=== PATIENT | female | born 1960 | race Caucasian/White ===

== ENCOUNTER 2017-03-24 15:00 | Outpatient (RCR) | payer MEDICAID, SELFPAY | END 2017-03-24 15:01 | disposition home or self-care (01) | LOC: PT 15:00 | PROVIDERS: Family Provider Nurse Practitioner Family; Visit Provider Nurse Practitioner | DX: M54.2 Cervicalgia (principal); M51.36 Other intervertebral disc degeneration, lumbar region | CPT/HCPCS: 97010; 97014; 97035; 97110; 97140; 97164; G0283 ==

== ENCOUNTER → 2018-04-17 19:19 | Outpatient (CLI) | payer OTHER, SELFPAY ==
[2018-04-18 19:19] LABS: Adenovirus F 40/41, stool Not Detected (NotDetected); Astrovirus Not Detected (NotDetected); Clostridium Difficile A/B, PCR Not Detected (NotDetected); Cryptosporidium Not Detected (NotDetected); Cyclospora Cayetanesis Not Detected (NotDetected); Entamoeba histolytica Not Detected (NotDetected); Enteroaggregative E coli Not Detected (NotDetected); Enteropathogenic E coli Not Detected (NotDetected); Enterotoxigenic E coli Not Detected (NotDetected); Giardia lamblia Not Detected (NotDetected); Plesimonas Shigalloides, PCR Not Detected (NotDetected); Rotavirus A Not Detected (NotDetected); Salmonella, PCR Not Detected (NotDetected); Sapovirus Not Detected (NotDetected); Shiga-like toxin E coli Not Detected (NotDetected); Shigella Enterovasive E coli Not Detected (NotDetected); Vibrio Cholerae Not Detected (NotDetected); Vibrio, PCR Not Detected (NotDetected); Yersinia Entercolitica, PCR Not Detected (NotDetected)
[2018-04-18 19:21] LABS: Campylobacter Not Detected (NotDetected)
[2018-04-18 22:26] LABS: Norovirus Detected (NotDetected)
== END ==
PROVIDERS: Visit Provider Nurse Practitioner Family
DX: R50.9 Fever, unspecified (principal); R19.7 Diarrhea, unspecified
CPT/HCPCS: 87507

== ENCOUNTER → 2018-06-26 09:41 | Outpatient (CLI) | payer OTHER, SELFPAY ==
[2018-06-26 10:35] LABS: Basophils % 0.7 % (0.1-2.0); Eosinophils # 0.1 K/mm3 (0.0-0.4); Eosinophils % 2.1 % (0.1-12.0); Hematocrit 43.4 % (37.0-47.0); Hemoglobin 14.6 g/dL (12.2-16.2); Lymphocytes # 1.4 K/mm3 (0.7-4.5); Lymphocytes % 34.7 % (10-50); Mean Corpuscular HGB Conc 33.5 g/dL (31.8-35.4); Mean Corpuscular Hemoglobin 30.9 pg (27.0-31.2); Mean Corpuscular Volume 92.2 fl (81-99); Mean Platelet Volume 8.9 fl (7.4-10.4); Monocytes # 0.2 K/mm3 (0.1-1.0); Monocytes % 5.2 % (1.7-9.3); Neutrophils # 2.3 K/mm3 (1.8-7.8); Neutrophils % 57.3 % (37.0-80.0); Platelet Count 212 K/mm3 (142-424); Red Blood Count 4.71 M/mm3 (4.20-5.40); Red Cell Distribution Width 13.2 % (11.5-17.5)
[2018-06-26 12:06] LABS: Troponin I < 0.02 ng/ml (0.00-0.06)
[2018-06-26 12:11] LABS: Alanine Aminotransferase 25 U/L (12-78); Albumin Level 4.3 gm/dL (3.4-5.0); Albumin/Globulin Ratio 1.2 (1.1-1.8); Alkaline Phosphatase 121 U/L (46-116); Anion Gap 12.5 mEq/L (5-15); Aspartate Amino Transferase 15 U/L (15-37); Bilirubin,Total 0.6 mg/dL (0.2-1.0); Blood Urea Nitrogen 11 mg/dL (7-18); Carbon Dioxide 28 mmol/L (21.0-32.0); Chloride 106 mmol/L (98-107); Chol/HDL Ratio 3.6 (1-3.5); Cholesterol 167 mg/dL (140-200); Creatinine,Serum 0.67 mg/dL (0.55-1.02); Estimated Glomerular Filt Rate 91 ml/min (>60); GFR (African American) 110 ML/MIN (>60); Globulin 3.7 gm/dl (1.3-3.2); Glucose 81 mg/dL (74-106); HDL Cholesterol 46 mg/dL (29-89); LDL Cholesterol 98 mg/dL (0-130); Potassium 4.5 mmoL/L (3.5-5.1); Sodium 142 mmol/L (136-145); Thyroid Stimulating Hormone 1.73 uIU/ml (0.358-3.740); Triglycerides 114 mg/dL (30-200); VLDL Cholesterol 23 mg/dL (0-40)
== END ==
PROVIDERS: Visit Provider Nurse Practitioner Family
DX: R07.82 Intercostal pain (principal); R06.02 Shortness of breath
CPT/HCPCS: 36415; 80053; 80061; 84443; 84484; 85025

== ENCOUNTER → 2018-08-06 14:39 | Outpatient (CLI) | payer OTHER, SELFPAY ==
[2018-08-06 15:17] LABS: Basophils % 0.5 % (0.1-2.0); Eosinophils % 0.7 % (0.1-12.0); Hematocrit 41.3 % (37.0-47.0); Hemoglobin 14.2 g/dL (12.2-16.2); Lymphocytes # 1.4 K/mm3 (0.7-4.5); Lymphocytes % 24.9 % (10-50); Mean Corpuscular HGB Conc 34.3 g/dL (31.8-35.4); Mean Corpuscular Hemoglobin 30.6 pg (27.0-31.2); Mean Corpuscular Volume 89.4 fl (81-99); Monocytes # 0.3 K/mm3 (0.1-1.0); Monocytes % 5.3 % (1.7-9.3); Neutrophils # 3.7 K/mm3 (1.8-7.8); Neutrophils % 68.6 % (37.0-80.0); Platelet Count 224 K/mm3 (142-424); Red Blood Count 4.63 M/mm3 (4.20-5.40); Red Cell Distribution Width 13.4 % (11.5-17.5); White Blood Count 5.4 K/mm3 (4.8-10.8)
[2018-08-06 17:34] LABS: Alanine Aminotransferase 24 U/L (12-78); Albumin/Globulin Ratio 1.3 (1.1-1.8); Alkaline Phosphatase 119 U/L (46-116); Amylase 34 U/L (25-115); Anion Gap 17.9 mEq/L (5-15); Aspartate Amino Transferase 15 U/L (15-37); Bilirubin,Total 0.7 mg/dL (0.2-1.0); Blood Urea Nitrogen 12 mg/dL (7-18); Carbon Dioxide 24 mmol/L (21.0-32.0); Chloride 106 mmol/L (98-107); Creatinine,Serum 0.69 mg/dL (0.55-1.02); Estimated Glomerular Filt Rate 88 ml/min (>60); GFR (African American) 106 ML/MIN (>60); Globulin 3.2 gm/dl (1.3-3.2); Glucose 96 mg/dL (74-106); Lipase 116 u/L (73-393); Potassium 3.9 mmoL/L (3.5-5.1); Sodium 144 mmol/L (136-145); Total Protein,Serum 7.2 gm/dL (6.4-8.2)
== END ==
PROVIDERS: PCP Nurse Practitioner Family; Visit Provider Nurse Practitioner Family
DX: R10.11 Right upper quadrant pain (principal); R11.2 Nausea with vomiting, unspecified
CPT/HCPCS: 36415; 80053; 82150; 83690; 85025

== ENCOUNTER → 2018-08-31 10:35 | Outpatient (CLI) | payer OTHER, SELFPAY ==
[2018-08-31 11:21] LABS: Blood Urea Nitrogen 10 mg/dL (7-18); Creatinine,Serum 0.67 mg/dL (0.55-1.02); Estimated Glomerular Filt Rate 91 ml/min (>60); GFR (African American) 110 ML/MIN (>60)
--- NOTE | 2018-08-31 12:09 | CT_ITS ---
CT abdomen pelvis w con CLINICAL HISTORY: Right lower quadrant pain, some fever and chills and diarrhea TECHNIQUE: Axial images obtained with sagittal and coronal reformats. All CT scans at the facility use one or more dose reduction, viz: automated exposure control, ma/kV adjustment per patient size (including targeted exams where dose is matched to indication, i.e. head), or iterative reconstruction technique. COMPARISON: CT scan abdomen pelvis without IV or oral contrast 07/14/2016 PROCEDURE: Oral Contrast:Redicat was given IV Contrast: 75 ml IV Optiray 350 was injected intravenously. FINDINGS: Lung bases: Clear, there is no pleural fluid ABDOMEN: Liver: The liver is normal size. There is a stable hypodense lesion inferior aspect of the right lobe consistent with hepatic cyst Gallbladder: Postcholecystectomy Pancreas: No masses or peripancreatic fluid collections. Spleen: The spleen is normal in size, again noted is a hypodense cystic-appearing lesion anterior aspect which has shown slight interval increase in size since the previous exam but consistent with a splenic cyst Adrenals: Unremarkable Kidneys/ureters: No masses. No renal calculi. No hydronephrosis. No perinephric fluid collections. No ureteral dilatation or obvious ureteral calculi. There is symmetrical function following injection of contrast Stomach bowel: The stomach and small bowel appear grossly normal. There is a moderately large amount of stool mixed with oral contrast throughout the colon. The cecum is low-lying in right side the pelvis a normal variation. Peritoneum: No abnormal fluid collections. No obvious inflammatory changes. Lymph nodes: No enlarged lymph nodes apparent. Vasculature: No evidence of abdominal aortic aneurysm. No retroperitoneal hemorrhage evident. Bones: There is mild levoscoliotic curvature of the lumbar spine. PELVIS: Reproductive: Post hysterectomy Bladder: Partially decompressed, there is no free fluid in the pelvis Appendix: Normal in caliber and retrocecal in location. IMPRESSION: Findings of moderate constipation, no acute abdominal or pelvic pathology identified
== END ==
PROVIDERS: PCP Nurse Practitioner Family; Visit Provider Nurse Practitioner Family
DX: R10.11 Right upper quadrant pain (principal); R19.5 Other fecal abnormalities; R11.2 Nausea with vomiting, unspecified; R50.9 Fever, unspecified
CPT/HCPCS: 36415; 74177; 82565; 84520; Q9967

== ENCOUNTER → 2019-04-11 14:27 | Outpatient (CLI) | payer OTHER, SELFPAY ==
--- NOTE | 2019-04-11 14:33 | XR_ITS ---
PROCEDURE: XR SHOULDER LT MIN 2V CLINICAL INDICATION: ACUTE LT SHOULDER PAIN COMPARISON: No exams were available for comparison FINDINGS: There are minimal osteoarthritic changes of the acromioclavicular joint. The glenohumeral joint has an unremarkable appearance.. No fracture or dislocation. No lytic or blastic change. No significant subacromial stenosis. IMPRESSION: Minimal osteoarthritic changes of the AC joint otherwise negative Dictated by: Jh Shelton MD 04/11/2019 15:13 Electronically signed by Jh Shelton MD in [place] 04/11/2019 15:13
== END ==
PROVIDERS: PCP Nurse Practitioner Family; Visit Provider Nurse Practitioner Family
DX: M25.512 Pain in left shoulder (principal)
CPT/HCPCS: 73030

== ENCOUNTER 2019-06-07 11:00 | Outpatient (RCR) | payer OTHER, SELFPAY ==
--- NOTE | 2019-05-03 10:39 | HMH.PTOPEV ---
PT Outpatient Evaluation Rehab PT Outpatient Evaluation Start: 05/03/19 10:27 Freq: Status: Active Protocol: Document 05/03/19 10:27 PAWEL (Rec: 05/03/19 10:39 PAWEL [id number]) Electronically Signed By Miguel Alston, PT 05/03/19 10:27 Outpatient Therapy Subjective History Subjective History Pt reports insidious onset L SH pain beginning ~1 month ago . Pt reports currently, global L SH pain, 'maybe worse in the back', with referred pain into L UT mm area, and down L UE in RTC pattern. Pt also reports intermittent L hand N& T. Chief Complaint Pain,Stiff,Paresthesia, Weakness Symptom Type Ache,Sharp,Dull Symptoms Relieved By Rest/Positioning,Prescription Meds Symptoms Aggravated By Physical Activity,Lifting Prior Functional Limitations Reaching,Lifting,Housework Current Functional Limitations Reaching,Lifting,Housework, Driving Level of pain today (0-10) 8 Pain scale - at its best (0-10) 8 Pain scale - at its worst (0-10) 10 Shoulder/Elbow Eval Shoulder Objective Measurements Palpation Tenderness tenderness shoulder exam standard left tenderness over the bicipital tendon left shoulder exam standard Shoulder Palpation Findings Tenderness Shoulder Palpation Overall Comment 2-3/4-posterior RTC, LHB, SS insertion, L UT Posture Shoulder Posture Sitting Position (L) Rounded,(R) Rounded Shoulder Posture Standing Position (L) Rounded,(R) Rounded Flexibilty Deficits Upper Trapezius Muscle Length (L) Moderate Tightness Shoulder ROM Left Shoulder ROM Limitations Pain Shoulder Abduction Active Range of 0-150 Motion (degrees) Shoulder Flexion Active Range of Motion 0-155 (degrees) Query Text: Shoulder External Rotation Active Range 0-70 of Motion (degrees) Shoulder Internal Rotation Active Range 0-80 of Motion (degrees) Shoulder MMT Middle Trapezius Strength Grade 4- Good- Rhomboids Strength Grade 4- Good- Upper Trapezius/Levator Scapulae 4 Good Shoulder Abduction Strength Grade 4- Good- Shoulder Extension Strength Grade 4- Good- Shoulder Flexion Strength Grade 4- Good- Shoulder External Rotation Strength 4 Good Grade Shoulder Internal Rotation Strength 4- Good- Grade Shoulder Special Tests Shoulder Drop Arm Test Negative Left Shoulder Cross-Over Impingement Test Positive Lef
== END 2019-06-07 11:05 | disposition home or self-care (01) ==
LOC: PT 11:00
PROVIDERS: PCP Nurse Practitioner Family; Visit Provider Nurse Practitioner Family
DX: M25.512 Pain in left shoulder (principal); M75.82 Other shoulder lesions, left shoulder
CPT/HCPCS: 97010; 97014; 97033; 97035; 97110; 97140; 97163; G0283

== ENCOUNTER → 2019-06-14 13:19 | Outpatient (CLI) | payer OTHER, SELFPAY ==
--- NOTE | 2019-06-14 13:22 | XR_ITS ---
PROCEDURE: XR SHOULDER LT MIN 2V CLINICAL INDICATION: Shoulder pain Left shoulder pain, limited range of motion COMPARISON: XR SHOULDER LT MIN 2V from 04/11/2019 FINDINGS: There are mild osteoarthritic changes of the acromioclavicular joint and glenohumeral joint with mild subacromial stenosis. No fracture or dislocation. No lytic or blastic change. IMPRESSION: Mild osteoarthritic change of the AC joint and glenohumeral joint with mild subacromial stenosis Dictated by: Jh Shelton MD 06/14/2019 16:02 Electronically signed by Jh Shelton MD in [place] 06/14/2019 16:02
== END ==
PROVIDERS: PCP Nurse Practitioner Family; Visit Provider Orthopaedic Surgery
DX: M25.512 Pain in left shoulder (principal)
CPT/HCPCS: 73030

== ENCOUNTER → 2019-06-26 12:19 | Outpatient (CLI) | payer OTHER, SELFPAY ==
--- NOTE | 2019-06-26 12:53 | IR_ITS ---
PROCEDURE: IR ARTHROGRAM SHOULDER LT CLINICAL INDICATION: shoulder pain Severe shoulder pain with limited range of motion COMPARISON: MR SHOULDER LT WO/W CON from 06/26/2019 FINDINGS: Fluoroscopy time: 2 minutes and 33 seconds Technique: Following obtaining informed consent and time-out procedure with fluoroscopic guidance and local anesthesia with 1 percent buffered lidocaine, a 22 gauge spinal needle was inserted into the left shoulder joint capsule via the anterior approach. Approximately 10 mL of a a mixture Optiray 320, lidocaine, and gadolinium was injected into the left shoulder joint capsule by the anterior approach. The patient tolerated the procedure well without evidence of immediate complication. Post exercise images were then obtained. The patient was then taken to MRI or multi planar multi echo sequences were obtained. There was normal localization of the contrast within the left shoulder joint. No evidence of sub acromial extension that would indicate a rotator cuff tear. There was some contrast noted in the subdeltoid region probably related to extravasated contrast. IMPRESSION: No evidence of complete or full-thickness rotator cuff tear. Please see MRI for further discussion Dictated by: Jh Shelton MD 06/28/2019 14:23 Electronically signed by Jh Shelton MD in [place] 06/28/2019 14:23
--- NOTE | 2019-06-26 12:53 | MR_ITS ---
PROCEDURE: MR SHOULDER LT WO/W CON CLINICAL INDICATION: shoulder pain Left shoulder pain with limited range of motion COMPARISON: IR ARTHROGRAM SHOULDER LT from 06/26/2019 TECHNIQUE: Routine multiplanar multi echo sequences are performed following the intra articular injection of gadolinium. FINDINGS: Hypertrophic changes are present involving the acromioclavicular joint with mild subacromial stenosis. The subacromial space space measures approximately 5 mm. There is some increased T2 signal involving the supraspinatus tendon with mild thickening consistent with tendinopathy/tendinosis. There is discontinuity of the the deep fibers of the supraspinatus tendon distally and posteriorly consistent with a partial tear. A full-thickness tear does not appear to be present. There is no abnormal localization of contrast in the subacromial region. The infraspinatus tendon appears intact. The subscapularis and teres minor tendons also appear intact. No obvious labral tear IMPRESSION: 1. Tendinopathy/tendinosis of the supraspinatus tendon with hypertrophic changes of the AC joint and mild subacromial stenosis with suspected partial tear along the under surface and posterior aspect and distal aspect of the supraspinatus tendon. 2. No evidence of full-thickness or complete tear. 3. No evidence of labral tear Dictated by: Jh Shelton MD 06/28/2019 11:03 Electronically signed by Jh Shelton MD in [place] 06/28/2019 11:03
== END ==
PROVIDERS: PCP Nurse Practitioner Family; Visit Provider Orthopaedic Surgery
DX: M25.512 Pain in left shoulder (principal)
CPT/HCPCS: 73040; 73223; A9576; Q9967

== ENCOUNTER → 2019-07-10 09:50 | Outpatient (CLI) | payer OTHER, SELFPAY ==
--- NOTE | 2019-07-10 09:55 | XR_ITS ---
PROCEDURE: XR SHOULDER LT MIN 2V CLINICAL INDICATION: recent fall on left shoulder Posttraumatic pain COMPARISON: XR SHOULDER LT MIN 2V from 04/11/2019 XR SHOULDER LT MIN 2V from 06/14/2019 IR ARTHROGRAM SHOULDER LT from 06/26/2019 FINDINGS: Minimal hypertrophic change of the acromioclavicular joint and inferior aspect of the glenoid . No acute or dislocation IMPRESSION: Minimal degenerative change, no acute finding Dictated by: Jh Shelton MD 07/10/2019 16:10 Electronically signed by Jh Shelton MD in [place] 07/10/2019 16:10
== END ==
PROVIDERS: PCP Nurse Practitioner Family; Visit Provider Orthopaedic Surgery
DX: M19.012 Primary osteoarthritis, left shoulder (principal); M67.912 Unspecified disorder of synovium and tendon, left shoulder; M75.42 Impingement syndrome of left shoulder
CPT/HCPCS: 73030

== ENCOUNTER → 2019-08-09 11:10 | Outpatient (CLI) | payer OTHER, SELFPAY ==
--- NOTE | 2019-08-09 11:18 | XR_ITS ---
PROCEDURE: XR CERVICAL SPINE 5V CLINICAL INDICATION: Neck pain COMPARISON: CS5 CERVICAL SPINE 4 OR 5 VIEWS from 11/07/2016 FINDINGS: There is mild degenerative narrowing of the C4-5 disc space. Neural foramina are intact. Soft tissues are unremarkable. There is no fracture or dislocation. IMPRESSION: No fracture or dislocation, mild degenerative narrowing of the C4-5 disc space, no change. Dictated by: Carmelo Erickson 08/09/2019 11:58 Electronically signed by Carmelo Erickson in [place] 08/09/2019 11:58
== END ==
PROVIDERS: PCP Nurse Practitioner Family; Visit Provider Orthopaedic Surgery
DX: M54.2 Cervicalgia (principal)
CPT/HCPCS: 72050

== ENCOUNTER → 2019-09-12 14:50 | Outpatient (POV) | payer OTHER, SELFPAY ==
[2019-09-12 15:01] VITALS: BP 144/68; PULSE 54; RESP 20; TEMP 36.4; O2SAT 96; BMI 23.2
--- NOTE | 2019-09-12 15:34 | HMH.PMCON ---
Assessment and Plan (1) Degenerative joint disease of cervical spine Current visit: Yes Status: Acute Category: Medical Code(s): M47.812 - Spondylosis without myelopathy or radiculopathy, cervical region (2) Neck pain Current visit: Yes Status: Acute Category: Medical Code(s): M54.2 - Cervicalgia (3) Cervical radiculopathy Current visit: Yes Status: Acute Category: Medical Code(s): M54.12 - Radiculopathy, cervical region (4) Pain in joint, shoulder region Current visit: Yes Status: Acute Category: Medical Code(s): M25.519 - Pain in unspecified shoulder - Assessment and plan all Dx Assessment and Plan for all problems:: We will proceed with a left AC joint injection. Patient I did discuss undergoing an MRI of her cervical spine, however, she is reluctant to do so at this time. Patient says she just had an MRI of her left shoulder and she was certain her cervical spine was included with this MRI. I did educate the patient that she has had a cervical spine x-ray, however, did not see an MRI of her spine. Patient does not want to have an MRI at this time. She and I did discuss possible injective therapy, however, I did discuss with her that I am concerned that much of her pain is coming from her neck with possible nerve impingement. She is having numbness and tingling into her hands. Patient does not want to proceed with the MRI. She is also not interested in any type of anti-inflammatories. Does not want to proceed with any type of oral medications. I am not certain that the injection will give her much relief, however, she feels the pain, along with numbness and tingling is related to the shoulder and not the neck. At any rate, we will see her back after her injection to reassess her symptoms. If the patient does not get relief after the injection, she does understand that our next step would be an MRI of her cervical spine. The patient has been instructed to contact clinic if she has any concerns before next appointment. Dr. Marquis has reviewed this note and agrees with this plan of care. This note was dictated using voice recognition software and make contain errors or omissions. HPI - Data of Consult Patient: new to practice Consult date: 09/12/19 Requesting Physician: Tiffany Morales APRN Primary Care Provider: Riddhi Alfred APRN - Consult Narrative Reason for consult: Neck pain, left shoulder pain, left arm pain with numbness and tingling History of present illness: Ms. Barr is a 59 year old female resents today for consultation for neck pain with radiation into her left shoulder and left arm causing numbness and tingling. Patient says that she has tried physical therapy and is seeing Dr. Fernandez for her pain in her shoulder. Patient says that she is also using ice and heat. Patient did undergo a left shoulder MRI along with a cervical spine x-ray. Patient says that her pain starts in her neck and radiates into her anterior and posterior shoulder area. She says that the pain radiates down her left arm along with numbness and tingling into her hands. She says she is unable to raise her arm above her head. She says the pain is intense and is worsening with a today. She does report that the pain started in July 2019. Patient is very tearful during the assessment today. She says that she recently started a new job and is concerned she is going to lose her job due to inability to perform expected tasks at her job. She rates her pain a 7 out of 10. CC: Tiffany Morales APRN [facility] History I have reviewed the patient's past medical history: Yes Medical History: Denies:: Cancer, Diabetes Mellitus Type 1, Diabetes Mellitus Type 2, MRSA *Have you ever received a pneumonia vaccine?: No *Have you received a flu vaccine this season?: No Other Surgeries: Yes: , Hysterectomy-Total, Hysterectomy-Partial Amputation: No Fractures: No - *Social History Smoking Status: Current e
== END ==
PROVIDERS: PCP Nurse Practitioner Family; Visit Provider Clinical Nurse Specialist Family Health
DX: M47.892 Other spondylosis, cervical region (principal); M54.12 Radiculopathy, cervical region; M25.519 Pain in unspecified shoulder
CPT/HCPCS: 99202

== ENCOUNTER → 2019-09-20 16:04 | Outpatient (CLI) | payer OTHER, SELFPAY ==
--- NOTE | 2019-09-20 16:07 | XR_ITS ---
PROCEDURE: XR SHOULDER LT MIN 2V CLINICAL INDICATION: shoulder pain COMPARISON: DX XR SHOULDER LT MIN 2V from 04/11/2019 CR XR SHOULDER LT MIN 2V from 06/14/2019 DX,RF IR ARTHROGRAM SHOULDER LT from 06/26/2019 CR XR SHOULDER LT MIN 2V from 07/10/2019 FINDINGS: No fracture or dislocation. No lytic or blastic change. There is normal mineralization. There are mild osteoarthritic the glenohumeral joint and acromioclavicular joint Other findings:None. IMPRESSION: Mild osteoarthritic change Dictated b Jh Shelton MD 09/20/2019 17:12 Jh Shelton MD in [place] 09/20/2019 17:12
== END ==
PROVIDERS: PCP Nurse Practitioner Family; Visit Provider Orthopaedic Surgery
DX: M25.512 Pain in left shoulder (principal)
CPT/HCPCS: 73030

== ENCOUNTER 2019-09-25 14:30 | Outpatient (RCR) | payer OTHER, SELFPAY ==
--- NOTE | 2019-08-07 14:29 | HMH.RHREAS ---
Rehab Reassessment Rehab OP Re-assessment Start: 08/07/19 14:04 Freq: Status: Active Protocol: Document 08/07/19 14:12 RENLETICIA (Rec: 08/07/19 14:27 RENLETICIA [id number]) Electronically Signed By Jennifer Dean OT 08/07/19 14:12 Rehab Re-assessment Subjective Subjective My arm feels alright today. Objective Objective Notes Patient has been instructed on strengthening, gentle stretching and pain management with modalities to improve AROM, strengthening and decrease pain in R shoulder to complete IADL and ADLs. Patient participates well and has vocalized decrease pain since SOC. Assessment Progress Assessment Progressing as Expected Assessment Notes Continue POC with strengthening, stretching and pain modalities to improve QOL with IADLs and leisure tasks. Patient goals met L shoulder ER: 65 and IR: 70 Endurance to 20 mins prior to RB Strengthening 3/5 to L shoulder Goals Not Met 9/10 at worst R shoulder. L shoulder flex: 90 and L shoulder ABD: 80 Revised Goals Improve L shoulder ER: 70. Improve strengthening to 3+ to 4-/5 throughout session. Improve AROM of L shld flex: 100 Improve AROM of L shld ABD: 100 Improve L shoulder ER: 80 Endurance to 30 mins of exercises prior to RB Plan Plan Continue POC to return to PLOF Frequency of Therapy 2 Duration of therapy 6 Time and Billing Re-Eval Time 15 Re-Eval Billing Units 1 PHYSICIAN CERTIFICATION: I certify the specified therapy services for Breanna Barr are required, authorized, and reviewed every 30 days.
--- NOTE | 2019-09-09 15:46 | HMH.RHREAS ---
Rehab Reassessment Rehab OP Re-assessment Start: 08/07/19 14:04 Freq: Status: Active Protocol: Document 09/09/19 15:12 BILL (Rec: 09/09/19 15:19 RENLETICIA [id number]) Electronically Signed By Jennifer Dean OT 09/09/19 15:12 Rehab Re-assessment Subjective Subjective I'm feeling alright. Objective Objective Notes Patient has been instructed on completing tasks of thera act , thera exer and modalities of ultrasound and estim to decrease pain and increase AROM. Assessment Progress Assessment Progressing as Expected Assessment Notes Patient has verbalize decrease pain with L UE. Patient goals met Endurance to 30 mins of exercises prior to RB L UE pain at worst: 8/10 Goals Not Met Improve AROM of L shld flex: 95; ABD: 60; ER: 40; IR: 50 Revised Goals Improve L shoulder ER: 70. Improve strengthening to 3+ to 4-/5 throughout session. Improve AROM of L shld flex: 100 Improve AROM of L shld ABD: 100 Improve L shoulder ER: 80 Endurance to 40 mins of exercises prior to RB Pain at worst 5/10 Plan Plan Continue POC to decrease pain and increase AROM to return to PLOF. Frequency of Therapy 2wk Duration of therapy 4wk Time and Billing Re-Eval Time 15 Re-Eval Billing Units 1 PHYSICIAN CERTIFICATION: I certify the specified therapy services for Breanna Barr are required, authorized, and reviewed every 30 days.
== END 2019-09-25 15:20 | disposition home or self-care (01) ==
LOC: OT 14:30
PROVIDERS: PCP Nurse Practitioner Family; Visit Provider Orthopaedic Surgery
DX: M25.512 Pain in left shoulder (principal)
CPT/HCPCS: 97014; 97033; 97035; 97110; 97140; 97164; 97165; 97530; G0283

== ENCOUNTER → 2019-10-29 15:45 | Outpatient (CLI) | payer OTHER, SELFPAY ==
--- NOTE | 2019-10-29 15:47 | MR_ITS ---
PROCEDURE: MR CERVICAL SPINE WO CON CLINICAL INDICATION: NECK PAIN LT SIDED NECK PAIN COMPARISON: CR XR CERVICAL SPINE 5V from 08/09/2019 TECHNIQUE: Standard multiplanar multiecho sequences are performed without contrast. 3-D MIP and myelographic images are also rendered and reviewed FINDINGS: There is straightening of the upper cervical lordosis. Craniocervical junction has an unremarkable appearance. C2-C3: Unremarkable. C3-C4: Unremarkable. C4-C5: There is mild degenerative disc disease. Right-sided uncovertebral hypertrophy is present with right-sided foraminal narrowing. C5-C6: Degenerate disc disease with bulging disc with minimal broad-based central disc protrusion abutting the anterior aspect of the cord with minimal contour deformity of the cord anteriorly and canal stenosis at 9 mm. C6-C7: Degenerative disc disease with bulging disc slightly eccentric toward the left with mild bilateral foraminal narrowing. There is narrowing of the canal at 9 mm without cord impingement. There is a mild degree of motion artifact which does somewhat obscure fine detail. IMPRESSION: 1. C4-C5: There is mild degenerative disc disease. Right-sided uncovertebral hypertrophy is present with right-sided foraminal narrowing. 2. C5-C6: Degenerate disc disease with bulging disc with minimal broad-based central disc protrusion abutting the anterior aspect of the cord with minimal contour deformity of the cord anteriorly and canal stenosis at 9 mm. 3. C6-C7: Degenerative disc disease with bulging disc slightly eccentric toward the left with mild bilateral foraminal narrowing. There is narrowing of the canal at 9 mm without cord impingement Dictated by: Jh Shelton MD 10/30/2019 15:13 Jh Shelton MD in [place] 10/30/2019 15:13
== END ==
PROVIDERS: PCP Nurse Practitioner Family; Visit Provider Clinical Nurse Specialist Family Health
DX: M54.2 Cervicalgia (principal)
CPT/HCPCS: 72141; 76376

== ENCOUNTER → 2019-11-07 15:09 | Outpatient (POV) | payer OTHER, SELFPAY ==
[2019-11-07 15:38] VITALS: BP 125/72; PULSE 72; RESP 18; O2SAT 97; BMI 23.1
--- NOTE | 2019-11-07 15:45 | HMH.PAINSOAP ---
[facility] Pain Management SOAP Note Subjective:: Patient is a 59-year-old female who presents today for follow-up. She is being treated for neck pain with cervical radiculopathy symptoms. Patient says that her pain is worse with any type of movement. She says also with sitting she is having pain in her neck. She also reports to have new onset left hip pain. Patient says her pain is radiating into her left shoulder and left arm causing numbness and tingling. She has tried physical therapy and is currently seeing Dr. Fernandez for pain in her left shoulder. She says she is using ice and heat therapies. She is also currently undergoing physical therapy which is not giving her any relief. She tries a home stretching program and is very active at her job, but she continues to have pain. She does rate her pain a 5 out of 10. Patient says that the pain radiates into her anterior and posterior shoulder area. She is unable to raise her arm above her head. The pain has been present since July 2019. Patient says that she has discussed cervical intervention with her orthopedic doctor, however, she recently started a new job and says she is unable to have time off for any type of surgery. Patient did go see her orthopedic provider for complaints of left hip pain. Patient says she felt a popping sensation to her left hip while mopping her floor at home. She says that she was given oral steroids and muscle relaxers. Patient did not want to try taking the muscle relaxers because of concern of how the medication would make her feel. She also says she only took a day of the steroids and has not taken any since due to concerns of how the medication will make her feel. She would like to imaging of her hip. Review of Systems General: No recent weight changes, no fever, no sleep disturbances Respiratory: No cough, no shortness of air, no recurring pulmonary infections Cardiovascular/peripheral vascular: No chest pain, no palpitations, no edema, no shortness of breath Gastrointestinal: No new onset incontinence, normal bowel movements reported Genitourinary: No new onset incontinence Musculoskeletal: Neck pain, left shoulder pain, left arm pain with numbness and tingling, left hip pain Psychiatric: Normal mood/affect Neurological: [Denies weakness in extremities], [denies balance issues] Objective:: Physical exam General: Alert and oriented x3, no acute distress, pleasant and cooperative, [on room air] Lungs: Respirations even and unlabored, symmetrical chest expansion Eyes: PERRL Musculoskeletal: Flexion and extension of cervical and lumbar spine somewhat guarded secondary to pain, deep tendon reflexes normal, strength in upper and lower extremities [5/5], [abnormal gait noted] Neurological: Speech clear, 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 He is not on any anticoagulation therapy. We will also schedule her for an x-ray of her left hip. We will plan to see her back in the clinic after her injections to reassess her symptoms. We will also review her x-ray of her left hip at that time. She has directed to contact clinic if she has any concerns before next appointment. The patient and I specifically discussed risk factors for COVID19. These risks include, but are not limited to age greater than 60, heart or lung disease, diabetes, immunosuppression, and travel. We also discussed NSAIDs may worsen COVID19 infection or symptoms. Patient should not use NSAIDs to treat COVID19 signs or symptoms. Patient was also informed that any type of corticosteroid of any form (oral or injection) will decrease the patient's immune system response and may increase the likelihood of COVID19 [address] symptoms[address] Marquis has reviewed this note and agrees with this itzel
--- NOTE | 2019-11-07 15:51 | XR_ITS ---
PROCEDURE: XR HIP LT 2-3V W/PELVIS CLINICAL INDICATION: L HIP PAIN COMPARISON: CR [id number] HIP RT 2-3V W/PELVIS IF PERFOR from 05/31/2016 FINDINGS: No fracture or dislocation is evident. No significant degenerative change. No lytic or blastic change. Unremarkable soft tissues. IMPRESSION: No acute findings. Dictated by: Jh Shelton MD 11/07/2019 16:34 Jh Shelton MD in [place] 11/07/2019 16:34
== END ==
LOC: SC.PAIN 15:10 → RAD 15:48
PROVIDERS: PCP Family Medicine; Visit Provider Clinical Nurse Specialist Family Health
DX: M25.552 Pain in left hip (principal)
CPT/HCPCS: 73502; 99212

== ENCOUNTER 2019-12-06 13:32 | Day surgery (SDC) | payer OTHER, SELFPAY ==
[2019-12-06 15:25] VITALS: BP 150/90; PULSE 60; RESP 18; TEMP 36.1; O2SAT 96; BMI 21.6
[2019-12-06 15:44] VITALS: BP 132/85; PULSE 85; RESP 18
[2019-12-06 15:45] VITALS: BP 142/77; PULSE 85; RESP 18; O2SAT 98
--- NOTE | 2019-12-06 15:49 | HMH.PMPROC ---
- Procedure Date: 12/06/19 Time: 15:49 Anesthesiologist:: Candido Marquis MD Complications:: None Pre-procedure Diagnosis:: Degenerative disc disease of the cervical spine with cervical radiculopathy symptoms Post-procedure Diagnosis:: Same Indications for Procedure:: This patient is a pleasant 59-year-old white female who we are treating for neck pain with cervical radiculopathy symptoms. She does have some increasing pain in her neck radiating to her left arm. We will do a cervical epidural steroid injection today to help her with her pain symptoms. Procedure Details:: Cervical epidural steroid injection under fluoroscopy Informed consent was obtained and the risks and benefits of the procedure was explained to the patient. The patient was taken to the procedure room placed prone on the procedure table. The neck was prepped using ChloraPrep. The skin and subcutaneous tissues were anesthetized using lidocaine. I placed a 18-gauge epidural needle into the C5-C6 interspace and advanced using [id number] to air and fluoroscopic guidance. After confirmation of needle placement in the epidural space with dye, I injected 3 mL's lidocaine 1.5% and Depo-Medrol 80 mg. The patient tolerated the procedure well with no complications. Plan and Disposition:: We will follow-up with her in 2 weeks. Will reevaluate symptoms at that time.
[2019-12-06 15:56] VITALS: BP 124/77; PULSE 78; RESP 18; O2SAT 97
== END 2019-12-06 15:57 | disposition home or self-care (01) ==
LOC: SC.PAINP 13:33
PROVIDERS: PCP Family Medicine; Visit Provider Anesthesiology
DX: M50.10 Cervical disc disorder with radiculopathy, unspecified cervical region (principal); Z72.0 Tobacco use; K21.9 Gastro-esophageal reflux disease without esophagitis; F41.9 Anxiety disorder, unspecified; F32.9 Major depressive disorder, single episode, unspecified; Z90.49 Acquired absence of other specified parts of digestive tract; Z82.49 Family history of ischemic heart disease and other diseases of the circulatory system
CPT/HCPCS: 62321; J1040; Q9966

== ENCOUNTER → 2020-01-02 14:58 | Outpatient (POV) | payer OTHER, SELFPAY ==
[2020-01-02 15:22] VITALS: BP 148/69; PULSE 74; RESP 18; O2SAT 98
--- NOTE | 2020-01-02 15:33 | HMH.PAINSOAP ---
[facility] Pain Management SOAP Note Subjective:: Patient is a 59-year-old white female who presents today for follow-up after cervical epidural steroid injection. She is being treated for neck pain with cervical radiculopathy symptoms. Patient has worsening pain in her left arm. She says she also has some swelling in the base of her neck that worsens her pain as well. 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 Patient says that she got about 60% relief for about a week following her injection. She would like to repeat the injection. She reports that she did fall shortly after getting her injection. She says she fell down some steps and into the driveway. She says that she had worsening pain following the fall. She rates her pain a 7 out of 10 today. She has tried physical therapy and is continuing to do physical therapy at this time. She also continues with home stretching program and [id number] medications. She does use ice and heat therapies. Review of Systems General: No recent weight changes, no fever, no sleep disturbances Respiratory: No cough, no shortness of air, no recurring pulmonary infections Cardiovascular/peripheral vascular: No chest pain, no palpitations, no edema, no shortness of breath Gastrointestinal: No new onset incontinence, normal bowel movements reported Genitourinary: No new onset incontinence Musculoskeletal: Neck pain with radiation into left arm causing numbness and tingling Psychiatric: Normal mood/affect Neurological: [Denies weakness in extremities], [denies balance issues] Objective:: Physical exam General: Alert and oriented x3, no acute distress, pleasant and cooperative, [on room air] Lungs: Respirations even and unlabored, symmetrical chest expansion Eyes: PERRL Musculoskeletal: Flexion and extension of cervical spine somewhat guarded secondary to pain, deep tendon reflexes normal, strength in upper and lower extremities [5/5], normal gait noted Neurological: Speech clear, fashion model equal, no gross sensory deficit Assessment:: Degenerative disc disease cervical spine with cervical radiculopathy symptoms Plan:: We will schedule patient for repeat cervical epidural steroid injection at C6-C7. She did get relief for up to a week at 60% with her first injection. She would like to repeat the injection. Patient did fall after the injection and feels that this worsened her pain. She would like to see if a repeat injection will help with her pain more than the prior injection due to the fall. We will follow-up with her after her injection to reassess her symptoms. She is not on any anticoagulation therapy. She has been instructed to contact clinic if she has any concerns before her next appointment. The patient and I specifically discussed risk factors for COVID19. These risks include, but are not limited to age greater than 60, heart or lung disease, diabetes, immunosuppression, and travel. We also discussed NSAIDs may worsen COVID19 infection or symptoms. Patient should not use NSAIDs to treat COVID19 signs or symptoms. Patient was also informed that any type of corticosteroid of any form (oral or injection) will decrease the patient's immune system response and may increase the likelihood of COVID19 infection [address] symptoms[address]. Marquis has reviewed this note and agrees with this plan of care. This note was dictated using voice recognition software and make contain errors or omissions. [facility] History I have reviewed the patient's past medical history: Yes Medical History: Denies:: Cancer, Diabetes Mellitus Type 1, Diabetes Mellitus Type 2, MRSA, Seizures *Have you ever received a pneumonia vaccine?: Yes *Have you received a flu vaccine this season?: Yes Other Medical History: Denies: Blood Transfusion Reaction Other Surgeries: Yes: Cholecystectomy, , Hysterectomy-Total, Hysterectomy-Partial Amputation: No Fractures: No - *Social Hi
== END ==
PROVIDERS: PCP Family Medicine; Visit Provider Clinical Nurse Specialist Family Health
DX: M50.10 Cervical disc disorder with radiculopathy, unspecified cervical region (principal)
CPT/HCPCS: 99212

== ENCOUNTER 2020-01-22 15:00 | Outpatient (RCR) | payer OTHER, SELFPAY ==
--- NOTE | 2019-11-18 15:52 | HMH.OTOPEV ---
OT Inpatient Evaluation Rehab OT Outpatient Eval Start: 11/18/19 15:33 Freq: Status: Active Protocol: Document 11/18/19 15:33 RMBILLIE (Rec: 11/18/19 15:52 RMBILLIE [id number]) Electronically Signed By Jese Palomares OT 11/18/19 15:33 Outpatient Therapy Subjective History Subjective History Pt is a 59 year old female who reports to therapy for initial evaluation to left shoulder. Pt does not recall a specific injury causing pain in the left shoulder. She explains ~3 months ago she woke up one morning with pain and decreased motion at left shoulder. About another month later, she fell on the left shoulder causing more deficits at shoulder. Pt has recently been diagnosed with frozen shoulder. Pt will continue to be seen weekly in order to address all deficits at left shoulder. Chief Complaint Pain,Weakness Symptom Type Ache,Throb,Sharp,Dull,Numbness Symptoms Relieved By Rest/Positioning Symptoms Aggravated By Physical Activity,Lifting Prior Functional Limitations None Current Functional Limitations Reaching,Lifting,Housework, Driving,Sleeping,Recreation Activity Symptom Description Intermittent,Activity Dependent Level of pain today (0-10) 7 Pain scale - at its best (0-10) 0 Pain scale - at its worst (0-10) 9 Shoulder/Elbow Eval Shoulder Objective Measurements Shoulder ROM Left Shoulder Abduction Active Range of 9 degrees Motion (degrees) Shoulder Abduction Passive Range of 120 degrees Motion (degrees) Shoulder Flexion Active Range of Motion 105 degrees (degrees) Query Text: Shoulder Flexion Passive Range of Motion 120 degrees (degrees) Shoulder External Rotation Active Range 20 degrees of Motion (degrees) Shoulder External Rotation Passive Range 30 degrees of Motion (degrees) Shoulder Internal Rotation Active Range 40 degrees of Motion (degrees) Shoulder Internal Rotation Passive Range 50 degrees of Motion (degrees) pain with active ROM shoulder exam left standard pain with passive ROM shoulder exam left standard decreased
--- NOTE | 2019-12-25 15:29 | HMH.RHREAS ---
Rehab Reassessment Rehab OP Re-assessment Start: 12/25/19 15:01 Freq: Status: Active Protocol: Document 12/25/19 15:01 ARUNA (Rec: 12/25/19 15:29 ARUNA [id number]) Electronically Signed By Jese Palomares OT 12/25/19 15:01 Rehab Re-assessment Subjective Subjective It doesn't hurt as often. Objective Objective Notes Pt continues to be seen twice weekly in order to address L shoulder deficits. Each session pt engages in left shoulder AAROM/AROM/and strengthening exercises. Pt also receives PROM manual stretching to left shoulder in flexion, abduction, er, and ir. Modalities are provided in order to decrease pain/ inflammation. Assessment Progress Assessment Progressing as Expected Assessment Notes Pt reports her pain is improved and she feels she is able to move the shoulder better than she could when she first started therapy. Pt also returned to doctor recently who was pleased with her progress and wanted her to continue therapy for now. Pt rates her pain at a 7/10 at worst. However, pt feels it is not as often that she has pain. Pt feels she is 50% better since starting therapy. Current AROM/MMT L shoulder Flex: 125 degrees; 4- Abd: 120 degrees; 4- ER: 60 degrees; 4- IR: 60 degrees; 3+ Patient goals met Pt has met the following short term goals: Pt is able to complete L shoulder exercises for 30 minutes prior to resting. Pt is independent with home exercise programs of AROM/ AAROM exercises. Goals Not Met The following goals Revised Goals Short term goals 1,2,&4 All alf goals written on initial evaluation. Plan Plan Continue with OT plan of care
== END 2020-01-22 15:05 | disposition home or self-care (01) ==
LOC: OT 15:00
PROVIDERS: PCP Family Medicine; Visit Provider Orthopaedic Surgery
DX: M19.012 Primary osteoarthritis, left shoulder (principal); M75.42 Impingement syndrome of left shoulder; M67.912 Unspecified disorder of synovium and tendon, left shoulder; M54.12 Radiculopathy, cervical region; M75.02 Adhesive capsulitis of left shoulder
CPT/HCPCS: 97014; 97110; 97140; 97164; 97166; G0283

== ENCOUNTER 2020-01-24 12:45 | Day surgery (SDC) | payer OTHER, SELFPAY ==
[2020-01-24 12:58] VITALS: BP 137/71; PULSE 83; RESP 18; TEMP 36.6; O2SAT 99; BMI 23.3
[2020-01-24 13:59] VITALS: BP 135/85; PULSE 87; RESP 18; O2SAT 98
[2020-01-24 14:01] VITALS: BP 135/78; PULSE 85; RESP 18; O2SAT 98
[2020-01-24 14:22] VITALS: BP 141/68; PULSE 77; RESP 18; O2SAT 97
--- NOTE | 2020-01-24 14:29 | HMH.PMPROC ---
- Procedure Date: 01/24/20 Time: 14:29 Anesthesiologist:: Candido Marquis MD Complications:: None Pre-procedure Diagnosis:: Degenerative disc disease of the cervical spine with cervical radiculopathy symptoms Post-procedure Diagnosis:: Same Indications for Procedure:: Patient is a pleasant 59-year-old white female who we are treating for neck pain with cervical radiculopathy symptoms. She does have increasing neck pain radiating to the left shoulder. She was 60 to 70% better after her first cervical epidural steroid injection. Pain has started to return she presents for a second cervical epidural steroid injection under fluoroscopy today. Procedure Details:: Cervical epidural steroid injection under fluoroscopy Informed consent was obtained and the risks and benefits of the procedure was explained to the patient. The patient was taken to the procedure room placed prone on the procedure table. The neck was prepped using ChloraPrep. The skin and subcutaneous tissues were anesthetized using lidocaine. I placed a 18-gauge epidural needle into the C5-C6 interspace and advanced using [id number] to air and fluoroscopic guidance. After confirmation of needle placement in the epidural space with dye, I injected 3 mL's lidocaine 1.5% and Depo-Medrol 80 mg. The patient tolerated the procedure well with no complications. Plan and Disposition:: We will follow-up with her in 2 weeks. Will reevaluate her symptoms at that time.
== END 2020-01-24 14:23 | disposition home or self-care (01) ==
LOC: SC.PAINP 12:46
PROVIDERS: PCP Family Medicine; Visit Provider Anesthesiology
DX: M50.10 Cervical disc disorder with radiculopathy, unspecified cervical region (principal); K21.9 Gastro-esophageal reflux disease without esophagitis; F41.9 Anxiety disorder, unspecified; F32.9 Major depressive disorder, single episode, unspecified; Z88.8 Allergy status to other drugs, medicaments and biological substances; Z72.0 Tobacco use
CPT/HCPCS: 62321; J1040; Q9966

== ENCOUNTER → 2020-02-27 14:54 | Outpatient (POV) | payer OTHER, SELFPAY ==
[2020-02-27 14:56] VITALS: BP 122/74; PULSE 74; RESP 18; TEMP 36.3; O2SAT 98; BMI 23.1
--- NOTE | 2020-02-27 15:17 | P.CONS_ITS ---
[facility] Pain Management SOAP Note Subjective:: She is pleasant 59-year-old white female who presented today for follow-up after cervical epidural steroid injection. This is her second cervical epidural steroid injection. She is not getting much relief from it. She rates her pain a 7 out of 10. Most of her pain is radicular in nature going down her left arm. We discussed adding gabapentin. She is interested in pursuing that she has not had this before. Patient's Arthur #[id number] reviewed and appropriate. ROS General: no recent weight change, no fever, no sleep disturbances Respiratory: no cough, no shortness of air, no recurring pulmonary infections Cardiovascular/Peripheral Vascular: No chest pain, No palpitations, no edema, no shortness of breath. Gastrointestinal: no new onset incontinence, normal bowel movements reported Genitourinary: no new onset incontinence Musculoskeletal: Neck pain, left arm pain Psychiatric: normal mood/ affect Neurological: [denies new onset weakness in extremities], [denies new onset balance issues] Objective:: Physical Exam General: Alert and oriented x3, no acute distress, pleasant and cooperative, [on room air] Lungs: Resps E/U, Symmetrical chest expansion, Eyes: PERRL Musculoskeletal: Flexion and extension of cervical spine somewhat guarded sec ondary to pain, deep tendon reflexes normal, strength in upper and lower extremities [5/5], slightly antalgic gait noted Neurological: speech clear, nursing surgical services director equal, no gross sensory deficits Assessment:: Degenerative disc disease cervical spine cervical radiculopathy Plan:: We will start the patient on gabapentin and her milligrams up to 3 times a day. I will follow-up with her in 3 weeks reassess her symptoms at that time she has been instructed to call the office if she has any issues prior to her next appointment. Dr. Marquis has reviewed this note and agrees with this plan of care. This note was dictated using voice recognition software and may contain errors or omissions [facility] History I have reviewed the patient's past medical history: Yes Medical History: Denies:: Cancer, Diabetes Mellitus Type 1, Diabetes Mellitus Type 2, MRSA, Seizures *Have you ever received a pneumonia vaccine?: Yes *Have you received a flu vaccine this season?: Yes Other Medical History: Denies: Blood Transfusion Reaction Other Surgeries: Yes: Cholecystectomy, , Hysterectomy-Total, Hysterectomy-Partial Amputation: No Fractures: No - *Social History Smoking Status: Current every day smoker Tobacco Type: cigarettes # Packs/Day (cigarettes): 1 Alcohol Intake: never Substance Use Type: denies use *Occupational Status:: other Housing: house Household Members: spouse *Travel in the last 8 weeks: None Family Hx:: No significant family history
== END ==
PROVIDERS: PCP Family Medicine; Visit Provider Clinical Nurse Specialist Family Health
DX: M50.10 Cervical disc disorder with radiculopathy, unspecified cervical region (principal)
CPT/HCPCS: 99212; G0463

== ENCOUNTER → 2020-03-06 15:58 | Outpatient (CLI) | payer OTHER, SELFPAY ==
[2020-03-06 17:19] LABS: Basophils # 0.1 K/mm3 (0-0.2); Basophils % 0.7 % (0.1-2.0); Eosinophils # 0.1 K/mm3 (0.0-0.4); Eosinophils % 1.1 % (0.1-12.0); Hematocrit 41.9 % (37.0-47.0); Lymphocytes # 1.7 K/mm3 (0.7-4.5); Lymphocytes % 23.7 % (10-50); Mean Corpuscular HGB Conc 33.4 g/dL (31.8-35.4); Mean Corpuscular Hemoglobin 31.3 pg (27.0-31.2); Mean Corpuscular Volume 93.6 fl (81-99); Mean Platelet Volume 8.5 fl (7.4-10.4); Monocytes # 0.3 K/mm3 (0.1-1.0); Monocytes % 4.4 % (1.7-9.3); Neutrophils # 4.9 K/mm3 (1.8-7.8); Neutrophils % 70.1 % (37.0-80.0); Platelet Count 214 K/mm3 (142-424); Red Blood Count 4.48 M/mm3 (4.20-5.40); Red Cell Distribution Width 13.7 % (11.5-17.5)
[2020-03-06 17:32] LABS: Alanine Aminotransferase 28 U/L (12-78); Albumin Level 4.5 g/dl (3.5-5.0); Albumin/Globulin Ratio 1.4 (1.1-1.8); Alkaline Phosphatase 102 U/L (38-126); Amylase 51 U/L (30-110); Anion Gap 10.4 mEq/L (5-15); Aspartate Amino Transferase 34 U/L (14-36); Bilirubin,Total 0.4 mg/dl (0.2-1.3); Blood Urea Nitrogen 13 mg/dl (7-17); Calcium 9.7 mg/dl (8.4-10.2); Carbon Dioxide 29 mmol/L (22.0-30.0); Chloride 103 mmol/L (98-107); Estimated Glomerular Filt Rate 74 ml/min (>60); GFR (African American) 89 ML/MIN (>60); Globulin 3.2 g/dL (1.3-3.2); Glucose 89 mg/dl (74-100); Lipase 129 U/L (23-300); Potassium 4.4 mmoL/L (3.5-5.1); Sodium 138 mmol/L (136-145); Total Protein,Serum 7.7 g/dl (6.3-8.2)
== END ==
PROVIDERS: Visit Provider Nurse Practitioner Family
DX: R10.10 Upper abdominal pain, unspecified (principal); R14.0 Abdominal distension (gaseous)
CPT/HCPCS: 36415; 80053; 82150; 83690; 85025

== ENCOUNTER → 2020-03-19 14:30 | Outpatient (POV) | payer OTHER, SELFPAY ==
[2020-03-19 14:57] VITALS: BP 132/65; PULSE 87; RESP 20; TEMP 36.7; O2SAT 96; BMI 23.7
--- NOTE | 2020-03-19 16:43 | HMH.PAINSOAP ---
[facility] Pain Management SOAP Note Subjective:: Patient is a pleasant 59-year-old white female who presents today for follow-up after starting gabapentin. Patient still having quite a lot of cervical pain she has pain in her neck rating down into her arm. Patient has had a recent MRI. I discussed with her neurosurgical consultation at this time due to work she is unable to move forward with this she rates the pain a 10 out of 10. She is not having any side effects to her current gabapentin regimen. Patient is trying to work. We discussed changing medications to see if this does benefit her. [facility] #[id number] reviewed and appropriate. ROS General: no recent weight change, no fever, no sleep disturbances Respiratory: no cough, no shortness of air, no recurring pulmonary infections Cardiovascular/Peripheral Vascular: No chest pain, No palpitations, no edema, no shortness of breath. Gastrointestinal: no new onset incontinence, normal bowel movements reported Genitourinary: no new onset incontinence Musculoskeletal: Neck pain, arm pain Psychiatric: normal mood/ affect Neurological: [denies new onset weakness in extremities], [denies new onset balance issues] Objective:: Physical Exam General: Alert and oriented x3, no acute distress, pleasant and cooperative, [on room air] Lungs: Resps E/U, Symmetrical chest expansion, Eyes: PERRL Musculoskeletal: Flexion and extension of cervical spine somewhat guarded secondary to pain, deep tendon reflexes normal, strength in upper and lower extremities [5/5], lightly antalgic gait noted Neurological: speech clear, unit controller equal, no gross sensory deficits Assessment:: Degenerative disc disease cervical spine cervical radiculopathy, neck pain Plan:: We will increase the patient's gabapentin to 300 mg 1 p.o. twice daily and we will start her on tramadol 50 mg 1 p.o. twice daily are long-term and will be to send her to a neurosurgeon in August when she has the opportunity to leave work. Patient will be seen in 3 weeks reassessed at that time she has been instructed to call the office if she has any issues prior to her next appointment. Dr. Marquis has reviewed this note and agrees with this plan of care. This note was dictated using voice recognition software and may contain errors or omissions [facility] History I have reviewed the patient's past medical history: Yes Medical History: Denies:: Cancer, Diabetes Mellitus Type 1, Diabetes Mellitus Type 2, MRSA, Seizures *Have you ever received a pneumonia vaccine?: No *Have you received a flu vaccine this season?: Yes Other Medical History: Denies: Blood Transfusion Reaction Other Surgeries: Yes: Cholecystectomy, , Hysterectomy-Total, Hysterectomy-Partial Amputation: No Fractures: No - *Social History Smoking Status: Current every day smoker Tobacco Type: cigarettes # Packs/Day (cigarettes): 1 Alcohol Intake: never Substance Use Type: denies use *Occupational Status:: employed Housing: house Household Members: spouse *Travel in the last 8 weeks: None Family Hx:: No significant family history
== END ==
PROVIDERS: PCP Nurse Practitioner Family; Visit Provider Clinical Nurse Specialist Family Health
DX: M50.10 Cervical disc disorder with radiculopathy, unspecified cervical region (principal)
CPT/HCPCS: 99212; G0463

== ENCOUNTER → 2020-04-09 15:09 | Outpatient (POV) | payer OTHER, SELFPAY ==
[2020-04-09 16:03] VITALS: BP 136/85; PULSE 74; RESP 18; O2SAT 98; BMI 23.1
--- NOTE | 2020-04-09 17:09 | HMH.PAINSOAP ---
[facility] Pain Management SOAP Note Subjective:: Patient is a 59-year-old white female who presents today for follow-up. She is being treated for chronic neck and shoulder pain, degenerative disc disease cervical spine with cervical radiculopathy symptoms. Patient rates her pain a 9 out of 10 today. She says she does not want to proceed with any further injective therapy. She also says that she is unable to take her gabapentin at this time because it makes her too sleepy when she is trying to work. She reports she will be going to 12-hour shift soon and hopes that she will be able to try the medication at that time. She does say the pain medicine does give her relief when she is unable to take it. Patient's Arthur and drug screen are appropriate. She does not need refills today. She reports that her pain is worse today in the left side of her neck radiating into her left arm and left shoulder. She says she has been doing a lot of manual lifting today while at work. Review of Systems General: No recent weight changes, no fever, no sleep disturbances Respiratory: No cough, no shortness of air, no recurring pulmonary infections Cardiovascular/peripheral vascular: No chest pain, no palpitations, no edema, no shortness of breath Gastrointestinal: No new onset incontinence, normal bowel movements reported Genitourinary: No new onset incontinence Musculoskeletal: Neck pain with radiation into left shoulder and left arm Psychiatric: Normal mood/affect Neurological: [Denies weakness in extremities], [denies balance issues] Objective:: Physical exam General: Alert and oriented x3, no acute distress, pleasant and cooperative, [on room air] Lungs: Respirations even and unlabored, symmetrical chest expansion Eyes: PERRL Musculoskeletal: Flexion and extension of cervical spine somewhat guarded secondary to pain, deep tendon reflexes normal, strength in upper and lower extremities [5/5], normal gait noted Neurological: Speech clear, superintendent communications equal, no gross sensory deficit Assessment:: Degenerative disc disease cervical spine with cervical radiculopathy symptoms Plan:: The [employer] patient account representative was present in the clinic today and did provide a trial in process of the e-stim for the patient. The patient got excellent relief with the device while in the clinic. She would like for us to order her the device for home use. We will order for the e-stim device and see if this relieves some of her neck pain, as she does not want to proceed with any type of injective therapy at this time. We will see her back in the clinic in a month to reevaluate her symptoms. She has been instructed to contact clinic if she has any concerns before next appointment. The patient and I specifically discussed risk factors for COVID19. These risks include, but are not limited to age greater than 60, heart or lung disease, diabetes, immunosuppression, and travel. We also discussed NSAIDs may worsen COVID19 infection or symptoms. Patient should not use NSAIDs to treat COVID19 signs or symptoms. Patient was also informed that any type of corticosteroid of any form (oral or injection) will decrease the patient's immune system response and may increase the likelihood of COVID19 infection and symptoms. [facility] History I have reviewed the patient's past medical history: Yes Medical History: Denies:: Cancer, Diabetes Mellitus Type 1, Diabetes Mellitus Type 2, MRSA, Seizures *Have you ever received a pneumonia vaccine?: Yes *Have you received a flu vaccine this season?: Yes Other Medical History: Denies: Blood Transfusion Reaction Other Surgeries: Yes: Cholecystectomy, , Hysterectomy-Total, Hysterectomy-Partial Amputation: No Fractures: No - *Social History Smoking Status: Current every day smoker Tobacco Type: cigarettes # Packs/Day (cigarettes): 1 Alcohol Intake: never Substance Use Type: denies use *Occupational Status:: employed Housing: house Household Mem
== END ==
PROVIDERS: PCP Family Medicine; Visit Provider Clinical Nurse Specialist Family Health
DX: M50.10 Cervical disc disorder with radiculopathy, unspecified cervical region (principal)
CPT/HCPCS: 99212; G0463

== ENCOUNTER → 2020-06-01 10:07 | Outpatient (POV) | payer OTHER, SELFPAY ==
--- NOTE | 2020-06-01 10:32 | HMH.PAINSOAP ---
[facility] Pain Management SOAP Note Subjective:: Patient is a 59-year-old white female who presents today for follow-up. Patient has a complaint of neck and left arm pain. Patient rates her pain an 8 out of 10 she is had to epidural injections and got short-term relief. She is uninterested in additional injective therapy. She is tried tramadol and gabapentin with no relief. Patient states physical therapy is beneficial for her however at this time she is unable to go through with it due to her current working situation and 12-hour shifts. We discussed anti-inflammatory she is agreeable. ROS General: no recent weight change, no fever, no sleep disturbances Respiratory: no cough, no shortness of air, no recurring pulmonary infections Cardiovascular/Peripheral Vascular: No chest pain, No palpitations, no edema, no shortness of breath. Gastrointestinal: no new onset incontinence, normal bowel movements reported Genitourinary: no new onset incontinence Musculoskeletal: Neck pain, arm pain Psychiatric: normal mood/ affect Neurological: [denies new onset weakness in extremities], [denies new onset balance issues] Objective:: Physical Exam General: Alert and oriented x3, no acute distress, pleasant and cooperative, [on room air] Lungs: Resps E/U, Symmetrical chest expansion, Eyes: PERRL Musculoskeletal: Flexion and extension of cervical spine somewhat guarded secondary to pain, deep tendon reflexes normal, strength in upper and lower extremities [5/5], normal gait noted Neurological: speech clear, signal operator linguist equal, no gross sensory deficits Assessment:: Degenerative disc disease cervical spine cervical radiculopathy Plan:: We will start the patient on diclofenac 75 mg 1 p.o. twice daily we will see her back in 1 month reassess her symptoms at that time she has been instructed to call the office if she has any issues prior to her next appointment. Dr. Marquis has reviewed this note and agrees with this plan of care. This note was dictated using voice recognition software and may contain errors or omissions [facility] History I have reviewed the patient's past medical history: Yes Medical History: Denies:: Cancer, Diabetes Mellitus Type 1, Diabetes Mellitus Type 2, MRSA, Seizures *Have you ever received a pneumonia vaccine?: Yes *Have you received a flu vaccine this season?: Yes Other Medical History: Denies: Blood Transfusion Reaction Other Surgeries: Yes: Cholecystectomy, , Hysterectomy-Total, Hysterectomy-Partial Amputation: No Fractures: No - *Social History Smoking Status: Current every day smoker Tobacco Type: cigarettes # Packs/Day (cigarettes): 1 Alcohol Intake: never Substance Use Type: denies use *Occupational Status:: employed Housing: house Household Members: spouse *Travel in the last 8 weeks: None Family Hx:: No significant family history
[2020-06-01 11:25] VITALS: BP 132/79; PULSE 69; RESP 18; O2SAT 98; BMI 23.3
== END ==
PROVIDERS: Visit Provider Clinical Nurse Specialist Family Health
DX: M50.10 Cervical disc disorder with radiculopathy, unspecified cervical region (principal)
CPT/HCPCS: 99212; G0463

== ENCOUNTER → 2020-06-29 11:08 | Outpatient (POV) | payer OTHER, SELFPAY ==
[2020-06-29 11:15] VITALS: BP 121/74; PULSE 74; RESP 18; O2SAT 98; BMI 21.6
--- NOTE | 2020-06-29 11:52 | HMH.PAINSOAP ---
[facility] Pain Management SOAP Note Subjective:: patient is a 60-year-old white female who presents today for follow-up. Patient rates her pain today an 8 out of 10 mostly in her neck and her arm. Patient had an epidural steroid injection with short-term relief she is uninterested in injective therapy. She tried tramadol and gabapentin with no relief she is tried diclofenac with no relief. Patient states physical therapy is beneficial for her however at this time she is unable to go through with it due to current working situation. Patient and I discussed neurosurgical evaluation she is agreeable however she states that she cannot make it to [place] to be seen by a provider. I discussed with her that this would be our next step and encouraged her to talk with her primary care physician in regard to this. I do have her on diclofenac 75 mg 1 p.o. twice daily she denies any side effects to this medication. ROS General: no recent weight change, no fever, no sleep disturbances Respiratory: no cough, no shortness of air, no recurring pulmonary infections Cardiovascular/Peripheral Vascular: No chest pain, No palpitations, no edema, no shortness of breath. Gastrointestinal: no new onset incontinence, normal bowel movements reported Genitourinary: no new onset incontinence Musculoskeletal: Neck pain, arm pain Psychiatric: normal mood/ affect Neurological: [denies new onset weakness in extremities], [denies new onset balance issues] Objective:: Physical Exam General: Alert and oriented x3, no acute distress, pleasant and cooperative, [on room air] Lungs: Resps E/U, Symmetrical chest expansion, Eyes: PERRL Musculoskeletal: Flexion and extension of cervical spine somewhat guarded secondary to pain, deep tendon reflexes normal, strength in upper and lower extremities [5/5], normal gait noted Neurological: speech clear, customer response representative equal, no gross sensory deficits Assessment:: Degenerative disc disease cervical spine cervical radiculopathy, but neck pain Plan:: Patient will return to her primary care physician. I did encourage her that if she can make it to [place] that a neurosurgical evaluation would be beneficial for her. I will follow-up with her on an as-needed basis. Dr. Marquis has reviewed this note and agrees with this plan of care. This note was dictated using voice recognition software and may contain errors or omissions [facility] History I have reviewed the patient's past medical history: Yes Medical History: Denies:: Cancer, Diabetes Mellitus Type 1, Diabetes Mellitus Type 2, MRSA, Seizures *Have you ever received a pneumonia vaccine?: Yes *Have you received a flu vaccine this season?: Yes Other Medical History: Denies: Blood Transfusion Reaction Other Surgeries: Yes: Cholecystectomy, , Hysterectomy-Total, Hysterectomy-Partial Amputation: No Fractures: No - *Social History Smoking Status: Current every day smoker Tobacco Type: cigarettes # Packs/Day (cigarettes): 1 Alcohol Intake: never Substance Use Type: denies use *Occupational Status:: employed Housing: house Household Members: spouse *Travel in the last 8 weeks: None Family Hx:: No significant family history
== END ==
PROVIDERS: Visit Provider Clinical Nurse Specialist Family Health
DX: M50.10 Cervical disc disorder with radiculopathy, unspecified cervical region (principal)
CPT/HCPCS: 99212; G0463

== ENCOUNTER 2020-08-11 15:30 | Emergency (ER) | payer OTHER, SELFPAY ==
[2020-08-11 15:31] VITALS: BP 126/76; PULSE 76; RESP 18; TEMP 36.7; O2SAT 98; BMI 22.2
--- NOTE | 2020-08-11 15:42 | HMH.EDGENADL ---
ED Disposition Clinical Impression: Chronic abdominal pain Abdominal pain Qualifiers: Abdominal location: right upper quadrant Qualified Code(s): R10.11 - Right upper quadrant pain Disposition: Home, Self-Care Condition on Discharge: Good Instructions: DI for Acute Abdominal Pain Additional Instructions: Zofran as needed for nausea. Tylenol or ibuprofen as needed for pain. Call your primary care provider tomorrow for further evaluation and management. May return to work on Monday, next scheduled day. Prescriptions: Ondansetron [Zofran 4mg ODT] 4 mg PO TIDP PRN #10 tab.rapdis PRN Reason: Nausea And Vomiting Transmission Status: Pending to [facility] Referrals: Riddhi Alfred APRN [Primary Care Provider] - Forms: Work/School Release - Critical Care Critical Care Time: No Attestation: On 08/11/20, the high probability of a clinically significant, sudden or life threatening deterioration of the following system(s) required my full and direct attention, intervention and personal management. The time I documented below is in addition to time spent performing reported procedures but includes the following listed in this critical care notation. Medical Decision Making - Arthur Inquiry Pt receiving controlled substance: No Vital Signs: 08/11/20 15:31 08/11/20 16:08 Temperature 98.1 F Temperature Source Oral Pulse Rate 68 Pulse Rate [Right] 76 Respiratory Rate 18 16 Blood Pressure 133/72 Blood Pressure [Right Arm] 126/76 Blood Pressure Mean [Right Arm] 92 02 Sat by Pulse Oximetry 98 98 Oxygen Delivery Method Room Air - Lab Data Lab Results 08/11/20 15:55: WBC 5.3, RBC 4.37, Hgb 13.7, Hct 39.1, MCV 89.3, MCH 31.3 H, MCHC 35.0, RDW 13.5, Plt Count 193, MPV 8.0, Neut % (Auto) 62.4, Lymph % (Auto) 29.0, [place] % (Auto) 4.7, Eos % (Auto) 3.3, Baso % (Auto) 0.7, Neut # (Auto) 3.3, Lymph # (Auto) 1.5, [place] # (Auto) 0.3, Eos # (Auto) 0.2, Baso # (Auto) 0.0 08/11/20 15:55: Sodium 141, Potassium 3.4 L, Chloride 107, Carbon Dioxide 24, Anion Gap 13.4, BUN 10, Creatinine 0.80, Estimated Creat Clear 75, Estimated GFR 73, Est GFR ( Amer) 89, Glucose 87, Calcium 9.1, Total Bilirubin 1.1, AST 35, ALT 30, Alkaline Phosphatase 122, Total Protein 7.7, Albumin 4.6, Globulin 3.1, Albumin/Globulin Ratio 1.5, Lipase 71 08/11/20 16:00: Urine Color Straw, Urine Appearance Clear, Urine pH 5.5, Ur Specific [place] <= 1.005, Urine Protein Negative, Urine Glucose (UA) Negative, Urine Ketones Negative, Urine Blood 1+, Urine Nitrate Negative, Urine Bilirubin Negative, Urine Urobilinogen 0.2, Ur Leukocyte Esterase 1+ A, Urine RBC Occasional, Urine WBC 3-5, Ur Squamous Epith Cells 5-10, Urine Bacteria 1+ Result diagrams: 08/11/20 15:55 08/11/20 15:55 Orders (Tests/Meds): ED MEDICATIONS Discontinued Medications Generic Name Dose Route Start Last Admin Trade Name Willian PRN Reason Stop Dose Admin Iopamidol 75 ml 08/11/20 16:47 08/11/20 16:53 Iopamidol-370 (76%);100ml Bottle IV 08/11/20 16:48 75 ml ONCE ONE Administration Ketorolac Tromethamine 30 mg 08/11/20 15:52 08/11/20 16:01 Ketorolac 30mg/Ml Vial IV 08/11/20 15:53 30 mg ONCE ONE Administration Ondansetron HCl 4 mg 08/11/20 15:52 08/11/20 16:01 Ondansetron 4mg/2ml Vial IV 08/11/20 15:53 4 mg ONCE ONE Administration Sodium Chloride 1,000 ml 08/11/20 15:52 08/11/20 16:01 Sodium Chloride 0.9% 1000ml Bag IV 08/11/20 15:53 1,000 ml BOLUS ONE Administration Sodium Chloride 50 ml 08/11/20 16:47 08/11/20 16:53 0.9 % Sodium Chloride 50 Ml Vial IV 08/11/20 16:48 50 ml ONCE ONE Administration Sodium Chloride 10 ml 08/11/20 16:47 08/11/20 16:53 Sodium Chloride 0.9% 10ml Syr (Rad Only) IV 08/11/20 16:48 10 ml ONCE ONE Administration ORDERS Category Date Time Status Urine Culture Stat Micro 08/11/20 16:00 Received - CT Data CT Scan: Abdomen, Pelvis Time Received:
--- NOTE | 2020-08-11 15:49 | CT_ITS ---
PROCEDURE: CT ABDOMEN PELVIS W CON CLINICAL INDICATION: abdominal pain Mid to right-sided abdominal pain COMPARISON: CT ABDPELW CT abdomen pelvis w con from 08/31/2018 TECHNIQUE: IV Contrast: 75ML Isovue 370 Oral Contrast None Axial images obtained with sagittal and coronal reformats. All CT scans at the facility use one or more dose reduction, viz: automated exposure control, ma/kV adjustment per patient size (including targeted exams where dose is matched to indication, i.e. head), or iterative reconstruction technique. FINDINGS: LOWER THORAX: No acute finding ABDOMEN & PELVIS: The liver, adrenal glands, and pancreas have an unremarkable appearance. There is minimal ectasia of the left and right renal pelvicaliceal system with bilateral parapelvic cysts and small left renal cortical cysts. Not significantly changed. No renal or ureteral calculi. There is a hypodense mass of the spleen anteriorly measuring 2.8 x 2.7 cm not significantly changed. There has been a prior cholecystectomy with mild biliary ectasia not significantly changed. No intestinal obstruction or free air. No evidence of appendicitis. Bowel gas pattern is nonspecific. There are some fluid-filled loops of small and large bowel with a few scattered air-fluid levels but no convincing evidence of bowel obstruction. There has been a prior hysterectomy. Urinary bladder has an unremarkable appearance. No pelvic mass or abnormal fluid collection is evident. There is mild lumbar scoliosis convex left. No acute bony findings. IMPRESSION: Scattered air-fluid levels in large and small bowel which may represent enterocolitis. Otherwise negative Stable hypodense splenic mass which could be due to splenic cyst . Dictated by: Jh Shelton MD 08/11/2020 17:24 Jh Shelton MD in [place] 08/11/2020 17:24
[2020-08-11 16:02] LABS: Basophils % 0.7 % (0.1-2.0); Eosinophils # 0.2 K/mm3 (0.0-0.4); Eosinophils % 3.3 % (0.1-12.0); Hematocrit 39.1 % (37.0-47.0); Hemoglobin 13.7 g/dL (12.2-16.2); Lymphocytes # 1.5 K/mm3 (0.7-4.5); Mean Corpuscular Hemoglobin 31.3 pg (27.0-31.2); Mean Corpuscular Volume 89.3 fl (81-99); Monocytes # 0.3 K/mm3 (0.1-1.0); Monocytes % 4.7 % (1.7-9.3); Neutrophils # 3.3 K/mm3 (1.8-7.8); Neutrophils % 62.4 % (37.0-80.0); Platelet Count 193 K/mm3 (142-424); Red Blood Count 4.37 M/mm3 (4.20-5.40); Red Cell Distribution Width 13.5 % (11.5-17.5); White Blood Count 5.3 K/mm3 (4.8-10.8)
[2020-08-11 16:08] VITALS: BP 133/72; PULSE 68; RESP 16; O2SAT 98
[2020-08-11 16:10] LABS: Microscopic, Urine URINE MICROSCOPIC (MICROSCOPIC)
[2020-08-11 16:11] LABS: Alanine Aminotransferase 30 U/L (12-78); Albumin Level 4.6 g/dl (3.5-5.0); Albumin/Globulin Ratio 1.5 (1.1-1.8); Anion Gap 13.4 mEq/L (5-15); Aspartate Amino Transferase 35 U/L (14-36); Bilirubin,Total 1.1 mg/dl (0.2-1.3); Blood Urea Nitrogen 10 mg/dl (7-17); Calcium 9.1 mg/dl (8.4-10.2); Carbon Dioxide 24 mmol/L (22.0-30.0); Chloride 107 mmol/L (98-107); Creatinine Clearance Estimated 75 mL/min (50-200); Estimated Glomerular Filt Rate 73 ml/min (>60); GFR (African American) 89 ML/MIN (>60); Globulin 3.1 g/dL (1.3-3.2); Glucose 87 mg/dl (74-100); Potassium 3.4 mmoL/L (3.5-5.1); Sodium 141 mmol/L (136-145); Total Protein,Serum 7.7 g/dl (6.3-8.2)
[2020-08-11 16:11] LABS: Appearance,Urine CLEAR (Clear); Bilirubin,Urine Negative (Negative); Blood, Urine 1+ (Negative); Color,Urine STRAW (Yellow); Glucose,Urine (UA) Negative (Negative); Ketones,Urine Negative (Negative); Leukocyte Esterase,Urine 1+ (Negative); Nitrate,Urine Negative (Negative); PH,Urine 5.5 (5.0-8.5); Protein,Urine Negative (Negative); Specific Gravity, Urine <= 1.005 (1.005-1.030); Urobilinogen,Urine 0.2 EU/dl (0.2)
[2020-08-11 16:12] LABS: Alkaline Phosphatase 122 U/L (38-126); Lipase 71 U/L (23-300)
[2020-08-11 16:21] LABS: Bacteria,Urine 1+ /lpf; RBC,Urine Occasional #/hpf (0-3)
--- NOTE | 2020-08-11 16:34 | PC.NURSE ---
PT IN CT
[2020-08-11 18:43] VITALS: BP 128/67; PULSE 68; RESP 18; TEMP 36.4; O2SAT 100
== END 2020-08-11 18:45 | disposition home or self-care (01) ==
PROVIDERS: Emergency Provider Emergency Medicine; PCP Nurse Practitioner Family
DX: R10.11 Right upper quadrant pain (principal); F17.210 Nicotine dependence, cigarettes, uncomplicated
CPT/HCPCS: 74177; 80053; 81001; 83690; 85025; 87077; 87086; 87088; 96365; 96366; 99283; J2405; Q9967

== ENCOUNTER → 2020-11-10 12:27 | Outpatient (CLI) | payer OTHER, SELFPAY ==
--- NOTE | 2020-11-10 12:33 | XR_ITS ---
PROCEDURE: XR HIP RT 2-3V W/PELVIS CLINICAL INDICATION: RT HIP PAIN COMPARISON: CR XR HIP LT 2-3V W/PELVIS from 11/07/2019 FINDINGS: No fracture or dislocation is evident. No significant degenerative change. No lytic or blastic change. Unremarkable soft tissues. IMPRESSION: No acute findings. Dictated by: Jh Shelton MD 11/10/2020 15:36 Jh Shelton MD in [facility] 11/10/2020 15:36
--- NOTE | 2020-11-10 12:33 | XR_ITS ---
PROCEDURE: XR HIP LT 2-3V W/PELVIS CLINICAL INDICATION: LT HIP PAIN COMPARISON: CR XR HIP LT 2-3V W/PELVIS from 11/07/2019 FINDINGS: No fracture or dislocation is evident. No significant degenerative change. No lytic or blastic change. Unremarkable soft tissues. IMPRESSION: No acute findings. Dictated by: Jh Shelton MD 11/10/2020 15:36 Jh Shelton MD in [facility] 11/10/2020 15:36
--- NOTE | 2020-11-10 12:33 | XR_ITS ---
PROCEDURE: XR SHOULDER LT MIN 2V CLINICAL INDICATION: LT SHOULDER PAIN COMPARISON: CR XR SHOULDER LT MIN 2V from 06/14/2019 DX,RF IR ARTHROGRAM SHOULDER LT from 06/26/2019 CR XR SHOULDER LT MIN 2V from 07/10/2019 CR XR SHOULDER LT MIN 2V from 09/20/2019 FINDINGS: No fracture or dislocation. No lytic or blastic change. There is normal mineralization. There are mild osteoarthritic changes at the acromioclavicular and glenohumeral joint. There is mild subacromial stenosis of 4 mm. Other findings:None. IMPRESSION: Mild osteoarthritic changes with mild subacromial stenosis Dictated by: Jh Shelton MD 11/10/2020 15:35 Jh Shelton MD in [place] 11/10/2020 15:35
== END ==
PROVIDERS: PCP Family Medicine; Visit Provider Family Medicine
DX: M25.512 Pain in left shoulder (principal); M25.552 Pain in left hip; M25.551 Pain in right hip
CPT/HCPCS: 73030; 73502

== ENCOUNTER → 2020-11-18 09:40 | Outpatient (CLI) | payer OTHER, SELFPAY | PROVIDERS: PCP Nurse Practitioner Family; Visit Provider Nurse Practitioner | DX: Z20.822 Contact with and (suspected) exposure to COVID-19 (principal) | CPT/HCPCS: C9803; U0003; U0005 ==

== ENCOUNTER 2021-02-26 16:59 | Observation (INO) | payer OTHER, SELFPAY ==
[2021-02-26] VITALS (8 sets, daily range): BP systolic 121–173; BP diastolic 63–98; PULSE 70–87; RESP 14–16; TEMP 36.6–36.8; O2SAT 98–100; BMI 23.1
--- NOTE | 2021-02-26 17:16 | CT_ITS ---
PROCEDURE INFORMATION: Exam: CT Abdomen And Pelvis With Contrast Exam date and time: 02/26/2021 5:16 PM Age: 60 years old Clinical indication: Abdominal pain; Localized; Right lower quadrant (rlq); Prior surgery; Additional info: Abd pain TECHNIQUE: Imaging protocol: Computed tomography of the abdomen and pelvis with contrast. Radiation optimization: All CT scans at this facility use at least one of these dose optimization techniques: automated exposure control; mA and/or kV adjustment per patient size (includes targeted exams where dose is matched to clinical indication); or iterative reconstruction. Contrast material: ISOVUE; Contrast volume: 75 ml; Contrast route: IV; COMPARISON: CT ABDOMEN PELVIS W CON 08/11/2020 4:41 PM FINDINGS: Lungs: The visualized lung bases are clear. Pleural spaces: There are no pleural effusions. Heart: The visualized portions of the heart are unremarkable. There is no evidence of pericardial fluid collections. Diaphragm: A small hiatal hernia is present. Liver: There is diffuse decrease in hepatic parenchymal density consistent with fatty infiltration. Gallbladder and bile ducts: There has been a cholecystectomy. There is a mild, expected degree of common bile duct dilation. Pancreas: The pancreas is normal. Spleen: There is a stable nonspecific hypodensity in the spleen anteriorly measuring 2.8 x 3.0 cm. Internal Hounsfield units measuring approximately 22 suggesting cyst. Adrenal glands: The adrenal glands are normal. Kidneys and ureters: There are a few subcentimeter bilateral small renal hypodensities which are too small to accurately characterize. Statistically, these may be cysts. There is mild prominent fluid density in the right central sinus complex which likely reflects small peripelvic cysts, as before. The kidneys are otherwise within range of normal. Stomach and bowel: Lack of gastrointestinal contrast limits evaluation of bowel. Unopacified loops of small bowel are within range of normal. The colon is normal.The stomach and duodenum are normal. Appendix: The proximal appendix is normal caliber. There is progressive distension of the distal appendix. The distal appendix measures approximately 11.5 mm. The distal appendix demonstrates diffuse distention, mural thickening and enhancement with mild periappendiceal hazy fat stranding consistent with acute appendicitis. Intraperitoneal space: There is a trace amount of fluid and stranding in the pelvis. No evidence of intraperitoneal free air. There is no evidence of focal fluid collections to suggest abscess formation. Vasculature: The aorta demonstrates mild atherosclerotic calcification. Lymph nodes: There is no evidence of pathologic adenopathy. There is no evidence of pathologic adenopathy. Urinary bladder: The bladder is normal. Reproductive: The uterus is either atrophic or absent. No adnexal cysts or masses are identified. Bones/joints: There is no evidence of acute fracture. There is a mild convex left lumbar scoliosis.There are mild degenerative changes of the hip joints. Soft tissues: Unremarkable. IMPRESSION: 1. Acute appendicitis of the distal appendix. 2. Small hiatal hernia. 3. Fatty hepatic infiltration.
[2021-02-26 17:43] LABS: Microscopic, Urine URINE MICROSCOPIC (MICROSCOPIC)
[2021-02-26 17:45] LABS: Chloride 108 mmol/L (98-107)
[2021-02-26 17:46] LABS: Sodium 142 mmol/L (136-145)
[2021-02-26 17:48] LABS: Alanine Aminotransferase 32 U/L (12-78); Amylase 65 U/L (30-110); Aspartate Amino Transferase 40 U/L (14-36); Blood Urea Nitrogen 18 mg/dl (7-17); Carbon Dioxide 27 mmol/L (22.0-30.0); Creatinine Clearance Estimated 69 mL/min (50-200); Estimated Glomerular Filt Rate 64 ml/min (>60); GFR (African American) 78 ML/MIN (>60)
[2021-02-26 17:49] LABS: Appearance,Urine CLEAR (Clear); Bilirubin,Urine Negative (Negative); Blood, Urine 1+ (Negative); Color,Urine YELLOW (Yellow); Glucose,Urine (UA) Negative (Negative); Ketones,Urine Negative (Negative); Leukocyte Esterase,Urine 2+ (Negative); Nitrate,Urine Negative (Negative); Protein,Urine Negative (Negative); Urobilinogen,Urine 0.2 EU/dl (0.2)
[2021-02-26 17:49] LABS: Albumin Level 4.6 g/dl (3.5-5.0); Albumin/Globulin Ratio 1.4 (1.1-1.8); Alkaline Phosphatase 108 U/L (38-126); Bilirubin,Total 0.7 mg/dl (0.2-1.3); Globulin 3.3 g/dL (1.3-3.2); Glucose 93 mg/dl (74-100); Lipase 112 U/L (23-300); Total Protein,Serum 7.9 g/dl (6.3-8.2)
[2021-02-26 17:52] LABS: Basophils # 0.1 K/mm3 (0-0.2); Basophils % 1.9 % (0.1-2.0); Eosinophils # 0.1 K/mm3 (0.0-0.4); Eosinophils % 2.3 % (0.1-12.0); Hematocrit 42.6 % (37.0-47.0); Hemoglobin 13.9 g/dL (12.2-16.2); Lymphocytes # 1.3 K/mm3 (0.7-4.5); Lymphocytes % 20.6 % (10-50); Mean Corpuscular HGB Conc 32.7 g/dL (31.8-35.4); Mean Corpuscular Hemoglobin 31.4 pg (27.0-31.2); Mean Corpuscular Volume 96.1 fl (81-99); Mean Platelet Volume 8.9 fl (7.4-10.4); Monocytes # 0.3 K/mm3 (0.1-1.0); Neutrophils # 4.3 K/mm3 (1.8-7.8); Neutrophils % 70.2 % (37.0-80.0); Platelet Count 219 K/mm3 (142-424); Red Blood Count 4.43 M/mm3 (4.20-5.40); Red Cell Distribution Width 13.9 % (11.5-17.5); White Blood Count 6.1 K/mm3 (4.8-10.8)
--- NOTE | 2021-02-26 17:59 | HMH.EDGENADL ---
ED Disposition Clinical Impression: Acute appendicitis Qualifiers: Acute appendicitis type: with localized peritonitis Appendicitis gangrene presence: without gangrene Appendicitis perforation presence: without perforation Appendicitis abscess presence: without abscess Qualified Code(s): K35.30 - Acute appendicitis with localized peritonitis, without perforation or gangrene Disposition: Admitted as Observation Condition on Discharge: Fair Referrals: Riddhi Alfred APRN [Primary Care Provider] - - Critical Care Critical Care Time: No Attestation: On 02/26/21, the high probability of a clinically significant, sudden or life threatening deterioration of the following system(s) required my full and direct attention, intervention and personal management. The time I documented below is in addition to time spent performing reported procedures but includes the following listed in this critical care notation. Medical Decision Making - Arthur Inquiry Pt receiving controlled substance: No Vital Signs: 02/26/21 17:00 02/26/21 20:00 Temperature 98.2 F Temperature Source Oral Pulse Rate 86 Pulse Rate [Right] 70 Respiratory Rate 16 Blood Pressure 140/81 Blood Pressure [Right Arm] 147/98 H Blood Pressure Mean [Right Arm] 114 Blood Pressure Source [Right Arm] Automatic Cuff Blood Pressure Position [Right Arm] Sitting 02 Sat by Pulse Oximetry 98 100 Oxygen Delivery Method Room Air Room Air - Lab Data Lab Results 02/26/21 17:30: WBC 6.1, RBC 4.43, Hgb 13.9, Hct 42.6, MCV 96.1, MCH 31.4 H, MCHC 32.7, RDW 13.9, Plt Count 219, MPV 8.9, Neut % (Auto) 70.2, Lymph % (Auto) 20.6, [place] % (Auto) 5.0, Eos % (Auto) 2.3, Baso % (Auto) 1.9, Neut # (Auto) 4.3, Lymph # (Auto) 1.3, [place] # (Auto) 0.3, Eos # (Auto) 0.1, Baso # (Auto) 0.1 02/26/21 17:30: Sodium 142, Potassium 4.0, Chloride 108 H, Carbon Dioxide 27, Anion Gap 11.0, BUN 18 H, Creatinine 0.90, Estimated Creat Clear 69, Estimated GFR 64, Est GFR ( Amer) 78, Glucose 93, Calcium 9.0, Total Bilirubin 0.7, AST 40 H, ALT 32, Alkaline Phosphatase 108, Total Protein 7.9, Albumin 4.6, Globulin 3.3 H, Albumin/Globulin Ratio 1.4, Amylase 65, Lipase 112 02/26/21 17:40: Urine Color Yellow, Urine Appearance Clear, Urine pH 7.0, Ur Specific [place] 1.020, Urine Protein Negative, Urine Glucose (UA) Negative, Urine Ketones Negative, Urine Blood 1+, Urine Nitrate Negative, Urine Bilirubin Negative, Urine Urobilinogen 0.2, Ur Leukocyte Esterase 2+ A, Urine RBC 3-5, Urine WBC 10-20, Ur Squamous Epith Cells 3-5, Urine Bacteria 1+ Result diagrams: 02/26/21 17:30 02/26/21 17:30 Orders (Tests/Meds): ED MEDICATIONS Discontinued Medications Generic Name Dose Route Start Last Admin Trade Name Freq PRN Reason Stop Dose Admin Iopamidol 75 ml 02/26/21 18:29 02/26/21 18:30 Iopamidol-370 (76%);100ml Bottle IV 02/26/21 18:30 75 ml ONCE ONE Administration Sodium Chloride 10 ml 02/26/21 18:29 02/26/21 18:30 Sodium Chloride 0.9% 10ml Syr (Rad Only) IV 02/26/21 18:30 10 ml ONCE ONE Administration ORDERS Category Date Time Status Urine Culture Stat Micro 02/26/21 17:40 Received - CT Data CT Scan: Abdomen, Pelvis Time Received: 18:[address] Reviewed: Yes: I have viewed the radiologist's interpretation Findings Narrative: Patient: Breanna Barr MR#: [id number] : 1960 Acct:[id number] Age/Sex: 60 / F ADM Date: 02/26/21 Loc: ER Attending Dr: Ordering Physician: Allen Pool MD Date of Service: 02/26/21 Procedure(s): CT abdomen pelvis w con Accession Number(s): [id number] cc: Riddhi Alfred APRN; Allen Pool MD; Althea Bueno MD~ PROCEDURE INFORMATION: Exam: CT Abdomen And Pelvis With Contrast Exam date and time: 02/26/2021 5:16 PM Age: 60 years old Clinical indication: Abdominal pain; Localized; Right lower quadrant (rlq); Prior surgery; Additional info: Abd pain TE
[2021-02-26 18:17] LABS: Bacteria,Urine 1+ /lpf
--- NOTE | 2021-02-26 19:04 | PC.NURSE ---
VINCENT Richards spoke with [facility] regarding CT abd /pelvis. Advised [facility] was aware of report but was in with a critical patient upstairs.
--- NOTE | 2021-02-26 19:57 | PC.NURSE ---
MD Yrn speaking with MD Roc
--- NOTE | 2021-02-26 19:59 | PC.NURSE ---
House notified to call in Surgery team at this time per .
--- NOTE | 2021-02-26 20:23 | PC.NURSE ---
Late entry: Surgery team paged at 1999 2001-Sigrid (anesthesia) returned call 2003-Shahrzad Singh returned call 2004-Summer returned call
--- NOTE | 2021-02-26 20:36 | PC.NURSE ---
2029-Notified by VINCENT Kirkpatrick that surgery team talked with patient and patient is not going to surgery to night but tomorrow instead. She stated all of surgery team is aware. Had surgery team paged to ensure that everyone was aware. 2033- returned call. 2034-2037-Summer. She stated she was going to verify time with surgeon for in the morning and notify Sandy and that the rest of the surgery team was aware of surgery tomorrow.
[2021-02-26 21:02] LABS: Influenza A, PCR Not Detected (NotDetected); Influenza B, PCR Not Detected (NotDetected)
--- NOTE | 2021-02-26 21:06 | HMH.GSHP ---
HPI HPI: This is a 60-year-old female who presented to the emergency department with increasing right lower quadrant pain and nausea. No fevers. Evaluation included a CT scan that showed changes consistent with distal appendicitis. [facility] History Medical History: Denies:: Cancer, Diabetes Mellitus Type 1, Diabetes Mellitus Type 2, MRSA, Seizures *Have you ever received a pneumonia vaccine?: No *Have you received a flu vaccine this season?: No Other Medical History: Denies: Blood Transfusion Reaction Other Surgeries: Yes: Cholecystectomy, , Hysterectomy-Total, Hysterectomy-Partial Amputation: No Fractures: No - *Social History Smoking Status: Current every day smoker Tobacco Type: cigarettes # Packs/Day (cigarettes): 1 Alcohol Intake: never Substance Use Type: denies use *Occupational Status:: employed Housing: house Household Members: spouse *Travel in the last 8 weeks: None Family Hx:: No significant family history Review of Systems - Constitutional Denies chills - Eyes Denies change in vision - ENT Denies difficulty swallowing - *Cardiovascular Denies chest pain - *Respiratory Denies cough - *Gastrointestinal Reports abdominal pain, Reports nausea - *Genitourinary Denies difficulty urinating - *Musculoskeletal Denies abnormal walking - Integumentary/Breasts Denies new lesions - *Neurologic Denies abnormal movements - Psychiatric Reports anxiety - Endocrine Denies cold intolerance - Hematologic/Lymphatic Denies easy bleeding - Allergic/Immunologic Denies GI upset with certain foods Meds Home Medications Medication Instructions Recorded Confirmed Type Methenamine Hippurate 1 gm PO BID 09/12/19 11/27/20 History Cyclobenzaprine HCl 10 mg PO NEEDED PRN 12/06/19 11/27/20 History [Cyclobenzaprine 10mg Tab*] Escitalopram Oxalate 10 mg PO DAILY 12/06/19 11/27/20 History Gabapentin 300 mg PO BID #60 cap 03/19/20 11/27/20 Rx Gabapentin [Neurontin 100mg 100 mg PO TID 03/19/20 11/27/20 History cap] Tramadol HCl [Tramadol 50mg 50 mg PO BID #60 tab 03/19/20 11/27/20 Rx Tab] Diclofenac Sodium [Diclofenac 75mg 75 mg PO BID #60 tab 06/01/20 11/27/20 Rx Tab] quetiapine 50 mg tablet 50 mg PO QHS #30 tab 10/13/20 Rx Allergies Allergy/AdvReac Type Severity Reaction Status Date / Time diphenhydramine Allergy Intermediate I-RASH Verified 11/27/20 13:43 [DIPHENHYDRAMINE] adhesive tape [ADHESIVE TAPE] Allergy Unknown SEIZURES Verified 11/27/20 13:43 Exam Vital signs and Labs for Last 24 Hours: Temp Pulse Resp BP Pulse Ox 98.2 F 86 16 140/81 100 02/26/21 17:00 02/26/21 20:00 02/26/21 17:00 02/26/21 20:00 02/26/21 20:00 Laboratory Results - last 24 hr 02/26/21 17:30: WBC 6.1, RBC 4.43, Hgb 13.9, Hct 42.6, MCV 96.1, MCH 31.4 H, MCHC 32.7, RDW 13.9, Plt Count 219, MPV 8.9, Neut % (Auto) 70.2, Lymph % (Auto) 20.6, [place] % (Auto) 5.0, Eos % (Auto) 2.3, Baso % (Auto) 1.9, Neut # (Auto) 4.3, Lymph # (Auto) 1.3, [place] # (Auto) 0.3, Eos # (Auto) 0.1, Baso # (Auto) 0.1 02/26/21 17:30: Sodium 142, Potassium 4.0, Chloride 108 H, Carbon Dioxide 27, Anion Gap 11.0, BUN 18 H, Creatinine 0.90, Estimated Creat Clear 69, Estimated GFR 64, Est GFR ( Amer) 78, Glucose 93, Calcium 9.0, Total Bilirubin 0.7, AST 40 H, ALT 32, Alkaline Phosphatase 108, Total Protein 7.9, Albumin 4.6, Globulin 3.3 H, Albumin/Globulin Ratio 1.4, Amylase 65, Lipase 112 02/26/21 17:40: Urine Color Yellow, Urine Appearance Clear, Urine pH 7.0, Ur Specific [place] 1.020, Urine Protein Negative, Urine Glucose (UA) Negative, Urine Ketones Negative, Urine Blood 1+, Urine Nitrate Negative, Urine Bilirubin Negative, Urine Urobilinogen 0.2, Ur Leukocyte Esterase 2+ A, Urine RBC 3-5, Urine WBC 10-20, Ur Squamous Epith Cells 3-5, Urine Bacteria 1+ I & O for Last 24 hours: Intake & Output 02/24/21 02/25/21 02/26/21 02/27/21 11:59 11:59 11:59 11:59 Weight 143 lb
[2021-02-26 21:30] LABS: Coronavirus 19, PCR Detected (NotDetected)
--- NOTE | 2021-02-26 23:14 | PC.NURSE ---
PT ARRIVED TO FLOOR VIA STRETCHER FROM ED W/STAFF @ [id number]
[2021-02-27] VITALS (22 sets, daily range): BP systolic 101–150; BP diastolic 42–86; PULSE 78–109; RESP 15–22; TEMP 36.2–42.7; O2SAT 96–99; BMI 23.2; BMI 23.5
--- NOTE | 2021-02-27 07:05 | HMH.GSPN ---
Subjective Patient reports: no new complaints Progress Note: A&P (1) Acute appendicitis Status: Acute Assessment and plan: Appendectomy today I have discussed the risks and benefits including, but not limited to: Bleeding Infection Damage to surrounding tissue Inherent risks of sedation The patient agrees to proceed. Exam Vital signs and Labs for Last 24 Hours: Temp Pulse Resp BP Pulse Ox 98.2 F 78 18 111/51 L 99 02/27/21 04:00 02/27/21 04:00 02/27/21 04:00 02/27/21 04:00 02/27/21 04:00 Laboratory Results - last 24 hr 02/26/21 17:30: WBC 6.1, RBC 4.43, Hgb 13.9, Hct 42.6, MCV 96.1, MCH 31.4 H, MCHC 32.7, RDW 13.9, Plt Count 219, MPV 8.9, Neut % (Auto) 70.2, Lymph % (Auto) 20.6, [place] % (Auto) 5.0, Eos % (Auto) 2.3, Baso % (Auto) 1.9, Neut # (Auto) 4.3, Lymph # (Auto) 1.3, [place] # (Auto) 0.3, Eos # (Auto) 0.1, Baso # (Auto) 0.1 02/26/21 17:30: Sodium 142, Potassium 4.0, Chloride 108 H, Carbon Dioxide 27, Anion Gap 11.0, BUN 18 H, Creatinine 0.90, Estimated Creat Clear 69, Estimated GFR 64, Est GFR ( Amer) 78, Glucose 93, Calcium 9.0, Total Bilirubin 0.7, AST 40 H, ALT 32, Alkaline Phosphatase 108, Total Protein 7.9, Albumin 4.6, Globulin 3.3 H, Albumin/Globulin Ratio 1.4, Amylase 65, Lipase 112 02/26/21 17:40: Urine Color Yellow, Urine Appearance Clear, Urine pH 7.0, Ur Specific [place] 1.020, Urine Protein Negative, Urine Glucose (UA) Negative, Urine Ketones Negative, Urine Blood 1+, Urine Nitrate Negative, Urine Bilirubin Negative, Urine Urobilinogen 0.2, Ur Leukocyte Esterase 2+ A, Urine RBC 3-5, Urine WBC 10-20, Ur Squamous Epith Cells 3-5, Urine Bacteria 1+ 02/26/21 20:01: SARS-CoV-2 (PCR) Detected A, Influenza A Untype (PCR) Not detected, Influenza Type B (PCR) Not detected I & O for Last 24 hours: Intake & Output 02/24/21 02/25/21 02/26/21 02/27/21 11:59 11:59 11:59 11:59 Intake Total 100 / 100 Balance 100 / 100 Weight 146 lb 6.191 oz - Constitutional no acute distress - *Routine Respiratory Exam Absent: respiratory distress - *Routine Cardiovascular Exam Present: RRR - *Routine Abdominal Exam Present: soft, tenderness
--- NOTE | 2021-02-27 07:37 | PC.NURSE ---
Patient rested comfortably through night. Pain treated with PRN morphine, nausea with zofran. IVF infusing per order. NPO for surgery this am. Had shower on admit. Able to make needs known.
--- NOTE | 2021-02-27 07:45 | HMH.ANESCL ---
[facility] Anesthesia Checklist - Patient Identification Patient Identification: Arm Band - Structural Data Admitted From: Inpatient Planned Operative Procedure/s: Lap. Appy Consent for Planned Operative Procedure(s) Verified: Yes - NPO Status Verified Time NPO: 00:00 - Additional verifications Anesthesia Reactions: No Hx Blood Transfusions: No Blood Transfusion Reaction: No - Airway Assessment C-Spine Mobility Assessed: Yes TMJ Mobility Assessed: Yes Dentition: Good Dentition - Neurological Assessment Level of Consciousness: Awake Hx Seizures: No Numbness or tingling in extremities: No - Anesthesia Plan Anesthesia Risk discussed: Yes Anesthesia Plan: Verified ASA Class: II Anesthesia Type: General [facility] History I have reviewed the patient's past medical history: Yes Medical History: Reports:: Gastroesophageal Reflux Disease(GERD), Renal Disease Denies:: Cancer, Diabetes Mellitus Type 1, Diabetes Mellitus Type 2, MRSA, Seizures *Have you ever received a pneumonia vaccine?: No *Have you received a flu vaccine this season?: No Other Medical History: Denies: Blood Transfusion Reaction Anesthesia experience/problems:: None Other Surgeries: Yes: Cholecystectomy, , Hysterectomy-Total, Hysterectomy-Partial Amputation: No Fractures: No - *Social History Last grade of school completed: High school graduate Smoking Status: Current some day smoker Tobacco Type: cigarettes # Packs/Day (cigarettes): 1 Alcohol Intake: never Substance Use Type: denies use *Occupational Status:: employed Housing: house Household Members: spouse *Travel in the last 8 weeks: None Family Hx:: Cancer
--- NOTE | 2021-02-27 09:35 | P.PN_ITS ---
[facility] Anesthesia Record Part I Intake, IV Amount: 1,350 Estimated blood loss (mL): 15 Urine output (mL): 250 Blood Pressure: 144/75 SaO2: 97 Pulse Rate: 109 Respiratory Rate: 22 Temperature: 97.5 F Patient is:: Awake Stable to PACU at:: 09:32
--- NOTE | 2021-02-27 09:38 | HMH.OPNOTE ---
Date of procedure: 02/27/21 Pre-op Diagnosis:: Appendicitis Post-op Diagnosis:: Suppurative appendicitis Procedure performed:: Laparoscopic appendectomy Surgeon:: Dustin Brian MD INTERNAL REVENUE SERVICE AGENT:: Sigrid Harris Anesthesia: WAN Estimated blood loss (mL): 15 Operative findings:: Partially retrocecal appendix with pelvic displacement Severe mid/distal appendicitis with suppurative changes No obvious perforation Operative note:: After informed consent was obtained the patient was taken to the operating room and placed in the supine position. General anesthesia was induced and her abdomen was prepped and draped in a sterile fashion. After infiltration with local anesthetic an infraumbilical incision was made. The Veress needle was placed in position. The abdomen was insufflated. A 12 mm optical trocar was placed in position. Under direct visualization an additional 5 mm trocar was placed in the suprapubic position and an additional 5 mm trocar was placed in the left lower quadrant. The appendix was found to be in a fairly pelvic displaced location and also partially retrocecal. Dissection was difficult secondary to the above. As the appendix was carefully elevated, severe inflammatory changes and thickening were noted throughout the mid/distal region. Fairly severe suppurative changes were also noted. The mesoappendix was taken with harmonic amalia. The appendix was transected with an Endopath 45 device. The specimen was placed in a retrieval bag and removed through the infraumbilical trocar site. Reevaluation did reveal an remaining appendiceal stump that was unable to be appreciated prior to initial resection. The stomach was carefully elevated. A window was made along the margin of the appendiceal base. The Endopath stapling device was utilized to transect the appendix at its base after the remaining mesoappendix was taken with harmonic amalia. The proximal portion of the appendix was placed in a retrieval bag and removed through the infraumbilical trocar site. Right lower quadrant and pelvis were copiously irrigated. No active bleeding or sign of injury was noted. Patient at the infraumbilical trocar site was reapproximated with interrupted 0 Ethibond. Trocars were removed. All wounds were irrigated and the skin was reapproximated with interrupted 4-0 Monocryl. Dressings were applied and patient was transferred to recovery in stable condition. Condition: stable Disposition: PACU Specimens:: Appendix Complications:: No immediate
--- NOTE | 2021-02-27 10:09 | SUR.PHASEI ---
Detailed report called to Dannie Waters RN. Pt is currently resting with no complaints. VSS. Pt transported to 2nd floor at this time.
--- NOTE | 2021-02-27 12:25 | HMH.PHAVTE ---
[facility] Pharmacy VTE Monitoring - Patient Demographics Admission date: 02/27/21 Report Date: 02/27/21 Time: 12:28 Allergies/Adverse Reactions: Patient Allergies diphenhydramine [DIPHENHYDRAMINE] Allergy (Intermediate, Verified 11/27/20 13:43) I-RASH adhesive tape [ADHESIVE TAPE] Allergy (Unknown, Verified 11/27/20 13:43) SEIZURES Height: 1.68 m Weight: 66.4 kg Patient Problems: Current Active Problems Acute appendicitis (Acute) - VTE Risk Labs: VTE Related Lab Results Hgb 13.9 g/dL (12.2-16.2) 02/26/21 17:30 Hct 42.6 % (37.0-47.0) 02/26/21 17:30 Plt Count 219 K/mm3 (142-424) 02/26/21 17:30 BUN 18 mg/dl (7-17) H 02/26/21 17:30 Creatinine 0.90 mg/dl (0.52-1.04) 02/26/21 17:30 Estimated Creat Clear 69 mL/min (50-200) 02/26/21 17:30 Was VTE Risk Assessment Performed: No VTE Score: 2 VTE Risk Level: Very Low Risk - Prophylaxis Types of VTE Prophylaxis: IPCS Thigh High Location of Applied Device: Bilateral Lower Extremeties (ICDS ORDERED)
--- NOTE | 2021-02-27 18:27 | PC.NURSE ---
she is aox4, able to make needs known to staff, dsg in place to abd c/d/i, bowel sounds active x4, ambulated in room with standby assist and tolerated well. has not c/o pain this shift. has not required o2 support. has denied n/v/d.
[2021-02-28] VITALS: BP 112/60; PULSE 84; RESP 15; TEMP 36.8; O2SAT 98
[2021-02-28 04:00] VITALS: BP 109/57; PULSE 78; RESP 18; TEMP 36.7; O2SAT 99
[2021-02-28 05:00] VITALS: BMI 23.3
[2021-02-28 06:33] LABS: Basophils % 0.6 % (0.1-2.0); Eosinophils % 0.6 % (0.1-12.0); Hematocrit 34.5 % (37.0-47.0); Hemoglobin 11.3 g/dL (12.2-16.2); Lymphocytes # 0.4 K/mm3 (0.7-4.5); Lymphocytes % 8.8 % (10-50); Mean Corpuscular HGB Conc 32.8 g/dL (31.8-35.4); Mean Corpuscular Hemoglobin 31.9 pg (27.0-31.2); Mean Corpuscular Volume 97.3 fl (81-99); Monocytes # 0.3 K/mm3 (0.1-1.0); Monocytes % 6.4 % (1.7-9.3); Neutrophils % 83.6 % (37.0-80.0); Platelet Count 179 K/mm3 (142-424); Red Blood Count 3.55 M/mm3 (4.20-5.40); Red Cell Distribution Width 13.6 % (11.5-17.5); White Blood Count 4.8 K/mm3 (4.8-10.8)
[2021-02-28 07:12] LABS: Anion Gap 8.7 mEq/L (5-15); Blood Urea Nitrogen 12 mg/dl (7-17); Calcium 8.6 mg/dl (8.4-10.2); Carbon Dioxide 26 mmol/L (22.0-30.0); Chloride 108 mmol/L (98-107); Creatinine Clearance Estimated 79 mL/min (50-200); Estimated Glomerular Filt Rate 73 ml/min (>60); GFR (African American) 89 ML/MIN (>60); Glucose 128 mg/dl (74-100); Potassium 3.7 mmoL/L (3.5-5.1); Sodium 139 mmol/L (136-145)
[2021-02-28 07:24] VITALS: BP 111/57; PULSE 80; RESP 18; TEMP 36.5; O2SAT 98
[2021-02-28 08:00] VITALS: O2SAT 97
--- NOTE | 2021-02-28 08:58 | P.PN_ITS ---
Subjective Patient reports: no new complaints, feels better Progress Note: A&P (1) Suppurative appendicitis Status: Acute Assessment and plan: Overall, doing well status post laparoscopic appendectomy. Discharge home with outpatient follow-up Complete short course of antibiotics secondary to suppurative nature of appendicitis (2) SARS-CoV-2 positive Status: Acute Assessment and plan: She is currently without symptoms. The patient is aware of isolation protocols and will return immediately if she develops respiratory difficulty. Exam Vital signs and Labs for Last 24 Hours: Temp Pulse Resp BP Pulse Ox 97.7 F 80 18 111/57 L 98 02/28/21 07:24 02/28/21 07:24 02/28/21 07:24 02/28/21 07:24 02/28/21 07:24 Laboratory Results - last 24 hr 02/26/21 17:40: Urine Color Yellow, Urine Appearance Clear, Urine pH 7.0, Ur Specific [place] 1.020, Urine Protein Negative, Urine Glucose (UA) Negative, Urine Ketones Negative, Urine Blood 1+, Urine Nitrate Negative, Urine Bilirubin Negative, Urine Urobilinogen 0.2, Ur Leukocyte Esterase 2+ A, Urine RBC 3-5, Urine WBC 10-20, Ur Squamous Epith Cells 3-5, Urine Bacteria 1+ 02/28/21 06:19: WBC 4.8, RBC 3.55 L, Hgb 11.3 L, Hct 34.5 L, MCV 97.3, MCH 31.9 H, MCHC 32.8, RDW 13.6, Plt Count 179, MPV 9.0, Neut % (Auto) 83.6 H, Lymph % (Auto) 8.8 L, [place] % (Auto) 6.4, Eos % (Auto) 0.6, Baso % (Auto) 0.6, Neut # (Auto) 4.0, Lymph # (Auto) 0.4 L, [place] # (Auto) 0.3, Eos # (Auto) 0.0, Baso # (Auto) 0.0 02/28/21 06:19: Sodium 139, Potassium 3.7, Chloride 108 H, Carbon Dioxide 26, Anion Gap 8.7, BUN 12 D, Creatinine 0.80, Estimated Creat Clear 79, Estimated GFR 73, Est GFR ( Amer) 89, Glucose 128 H, Calcium 8.6 I & O for Last 24 hours: Intake & Output 02/25/21 02/26/21 02/27/21 02/28/21 11:59 11:59 11:59 11:59 Intake Total 1450 / 1450 2400 / 2400 Balance 1450 / 1450 2400 / 2400 Weight 146 lb 6.191 oz 145 lb 8.081 oz Microbiology Reports for the Last 24 Hours: Microbiology 02/26/21 17:40 Urine,Clean Catch Urine Culture - Preliminary Gram Negative Rods - Constitutional no acute distress - *Routine Respiratory Exam Absent: respiratory distress - *Routine Cardiovascular Exam Present: RRR - *Routine Abdominal Exam Present: soft Comments: Dressings in place. No cellulitis.
--- NOTE | 2021-02-28 09:05 | HMH.DCSUM ---
General - General Admission date:: 02/26/21 Discharge date: 02/28/21 HPI HPI: This is a 60-year-old female who presents to the emergency department with increasing right lower quadrant abdominal pain and nausea. She had radiographic evidence consistent with appendicitis. The surgical service was consulted for evaluation and management. Standard testing confirmed the patient to be SARS-CoV-2 positive. She remained asymptomatic. Hospital Course Hospital Course: She underwent laparoscopic appendectomy. Please see operative report for detail. Changes consistent with fairly severe/suppurative appendicitis were confirmed intraoperatively. No definitive perforation seen. She was maintained on Zosyn secondary to these findings and the decision was made to complete a short course of antibiotics at home at the time of discharge. She remained afebrile with stable and normal vital signs throughout her stay. She tolerated advancement of her diet and ambulated without difficulty. She was maintained in isolation secondary to SARS-CoV-2 positive status. She did not develop respiratory compromise and had no other symptoms secondary to SARS-CoV-2 during her stay. Objective Vital signs: Temp Pulse Resp BP Pulse Ox 97.7 F 80 18 111/57 L 98 02/28/21 07:24 02/28/21 07:24 02/28/21 07:24 02/28/21 07:24 02/28/21 07:24 no acute distress - *Routine HEENT Exam Head: Present: normocephalic Eye: Present: EOMI ENT: Present: mucous membranes moist - *Routine Neck Exam Present: full ROM - Routine Chest/Breast/Axilla Exam Chest wall: Absent: tenderness - *Routine Respiratory Exam Absent: respiratory distress - *Routine Cardiovascular Exam Present: RRR - *Routine Abdominal Exam Present: soft, tenderness - *Routine Rectal Exam Patient deferred: visual exam - *Routine Exam Patient deferred: external exam - *Routine Extremities Exam Present: full ROM. Absent: cyanosis, clubbing, edema - Routine Back/Spine/Pelvis Exam Back/Spine: Present: full ROM - *Routine Skin Exam Absent: cyanosis, erythema - *Routine Neurological Exam Present: alert, oriented X3 - Routine Psychiatric Exam Present: normal affect Results Labs on day of discharge: Labs from last 24 hours 02/28/21 02/28/21 02/26/21 06:19 06:19 17:40 WBC 4.8 RBC 3.55 L Hgb 11.3 L Hct 34.5 L MCV 97.3 MCH 31.9 H MCHC 32.8 RDW 13.6 Plt Count 179 MPV 9.0 Neut % (Auto) 83.6 H Lymph % (Auto) 8.8 L [place] % (Auto) 6.4 Eos % (Auto) 0.6 Baso % (Auto) 0.6 Neut # (Auto) 4.0 Lymph # (Auto) 0.4 L [place] # (Auto) 0.3 Eos # (Auto) 0.0 Baso # (Auto) 0.0 Sodium 139 Potassium 3.7 Chloride 108 H Carbon Dioxide 26 Anion Gap 8.7 BUN 12 D Creatinine 0.80 Estimated Creat Clear 79 Estimated GFR 73 Est GFR ( Amer) 89 Glucose 128 H Calcium 8.6 Urine Color Yellow Urine Appearance Clear Urine pH 7.0 Ur Specific [place] 1.020 Urine Protein Negative Urine Glucose (UA) Negative Urine Ketones Negative Urine Blood 1+ Urine Nitrate Negative Urine Bilirubin Negative Urine Urobilinogen 0.2 Ur Leukocyte Esterase 2+ A Urine RBC 3-5 Urine WBC 10-20 Ur Squamous Epith Cells 3-5 Urine Bacteria 1+ Preliminary micro results at discharge 02/26/21 17:40 Urine Culture - Preliminary Urine,Clean Catch Gram Negative Rods DS: Diagnosis - Discharge Diagnosis (1) Suppurative appendicitis Status: Acute (2) SARS-CoV-2 positive Status: Acute Discharge Plan - Patient Discharge Instructions ACTIVITY: No heavy lifting DIET: advance to your usual diet Patient Instructions: DI for Appendicitis -- Adult, Appendicitis, DI for Urinary Tract Infection (UTI), DI for Surgical Site Infection, Appendectomy -- Laparoscopic Surgery, DI for COVID-19 (Suspected or Confirmed ), Preventing
--- NOTE | 2021-03-01 08:36 | HMH.ANESII ---
[facility] Anesthesia Record Part II Discharge Time: 10:12 Destination: Second Floor PACU nurse assessment reviewed?: Yes Patient Condition:: Good Anesthesia Complications:: None Swallowing reflex intact?: Yes Cyanosis?: No Blood Pressure: 127/66 Pulse Rate: 90 Temperature: 97.1 F Mental Status: Alert & Oriented Pain level:: 0 Nausea and/or vomitting:: None Intake, IV Amount: 0
[2021-03-01 08:38] VITALS: BP 127/66; PULSE 90; TEMP 36.2
== END 2021-02-28 12:34 | disposition home or self-care (01) ==
LOC: ER 20:53 → 2ND 21:43
PROVIDERS: Admitting Provider Surgery; Emergency Provider Emergency Medicine; PCP Nurse Practitioner Family; Visit Provider Surgery
PROC: 0DTJ4ZZ Resection of Appendix, Percutaneous Endoscopic Approach (ICD-10-PCS; CPT 44970; principal; 2021-02-27 08:00)
DX: K35.80 Unspecified acute appendicitis (principal); F17.210 Nicotine dependence, cigarettes, uncomplicated; U07.1 COVID-19
CPT/HCPCS: 44970; 36415; 74177; 80048; 80053; 81001; 82150; 83690; 85025; 87077; 87086; 87088; 88304; 99283; C9803; G0378; J0131; J2405; J2543; Q9967; U0003; U0005

== ENCOUNTER → 2021-03-10 14:17 | Outpatient (CLI) | payer OTHER, SELFPAY | PROVIDERS: PCP Nurse Practitioner Family; Visit Provider Nurse Practitioner | DX: U07.1 COVID-19 (principal) | CPT/HCPCS: C9803; U0003; U0005 ==

== ENCOUNTER → 2021-03-31 10:20 | Outpatient (CLI) | payer OTHER, SELFPAY ==
[2021-03-31 11:19] LABS: Basophils % 0.6 % (0.1-2.0); Eosinophils # 0.1 K/mm3 (0.0-0.4); Eosinophils % 2.2 % (0.1-12.0); Hematocrit 42.5 % (37.0-47.0); Hemoglobin 14.5 g/dL (12.2-16.2); Lymphocytes # 1.2 K/mm3 (0.7-4.5); Lymphocytes % 21.9 % (10-50); Mean Corpuscular HGB Conc 34.1 g/dL (31.8-35.4); Mean Corpuscular Volume 93.6 fl (81-99); Mean Platelet Volume 7.8 fl (7.4-10.4); Monocytes # 0.2 K/mm3 (0.1-1.0); Monocytes % 4.1 % (1.7-9.3); Neutrophils # 3.8 K/mm3 (1.8-7.8); Neutrophils % 71.2 % (37.0-80.0); Platelet Count 201 K/mm3 (142-424); Red Blood Count 4.54 M/mm3 (4.20-5.40); Red Cell Distribution Width 13.4 % (11.5-17.5); White Blood Count 5.4 K/mm3 (4.8-10.8)
[2021-03-31 11:31] LABS: Chloride 108 mmol/L (98-107); Potassium 4.2 mmoL/L (3.5-5.1); Sodium 139 mmol/L (136-145)
[2021-03-31 11:34] LABS: Blood Urea Nitrogen 12 mg/dl (7-17); Estimated Glomerular Filt Rate 73 ml/min (>60); GFR (African American) 89 ML/MIN (>60)
[2021-03-31 11:35] LABS: Anion Gap 9.2 mEq/L (5-15); Carbon Dioxide 26 mmol/L (22.0-30.0); Glucose 88 mg/dl (74-100)
== END ==
PROVIDERS: PCP Nurse Practitioner Family; Visit Provider Surgery
DX: R10.9 Unspecified abdominal pain (principal)
CPT/HCPCS: 36415; 80048; 85025

== ENCOUNTER → 2021-04-01 13:56 | Outpatient (CLI) | payer OTHER, SELFPAY ==
[2021-04-01 14:02] LABS: Adenovirus F 40/41, stool Not Detected (NotDetected); Astrovirus Not Detected (NotDetected); Campylobacter Not Detected (NotDetected); Clostridium Difficile A/B, PCR Not Detected (NotDetected); Cryptosporidium Not Detected (NotDetected); Cyclospora Cayetanesis Not Detected (NotDetected); Entamoeba histolytica Not Detected (NotDetected); Enteroaggregative E coli Not Detected (NotDetected); Enteropathogenic E coli Not Detected (NotDetected); Enterotoxigenic E coli Not Detected (NotDetected); Giardia lamblia Not Detected (NotDetected); Norovirus Not Detected (NotDetected); Plesimonas Shigalloides, PCR Not Detected (NotDetected); Rotavirus A Not Detected (NotDetected); Salmonella, PCR Not Detected (NotDetected); Sapovirus Not Detected (NotDetected); Shiga-like toxin E coli Not Detected (NotDetected); Shigella Enterovasive E coli Not Detected (NotDetected); Vibrio Cholerae Not Detected (NotDetected); Vibrio, PCR Not Detected (NotDetected); Yersinia Entercolitica, PCR Not Detected (NotDetected)
== END ==
PROVIDERS: PCP Nurse Practitioner Family; Visit Provider Surgery
DX: R19.7 Diarrhea, unspecified (principal)
CPT/HCPCS: 87507

== ENCOUNTER → 2021-04-20 09:55 | Outpatient (CLI) | payer OTHER, SELFPAY ==
--- NOTE | 2021-04-20 09:55 | CT_ITS ---
FINAL REPORT CLINICAL HISTORY: post appy/abdominal pain- at incision site COMPARISON: February 26, 2021 FINDINGS: CT OF THE ABDOMEN AND PELVIS WITH CONTRAST Axial CT images of the abdomen and pelvis were obtained after the administration of oral and iv contrast. Coronal reformatted images were also obtained and reviewed.This study was performed with techniques to keep radiation doses as low as reasonably achievable (ALARA). Individualized dose reduction techniques using automated exposure control or adjustment of mA and/or kV according to the patient's size were employed. Abdomen: There is a small hiatal hernia. The lung bases are clear. The heart is normal in size. The liver has an unremarkable appearance, without evidence of mass or biliary ductal dilatation. There is evidence of cholecystectomy. There is a 2.8 cm mass in the anterior spleen that may represent a cyst or hemangioma that is stable from the prior exam. No adrenal mass is present. The pancreas has an unremarkable appearance. There are several small bilateral renal cysts. The aorta is normal in caliber. There is no free fluid or adenopathy. There is mild soft tissue thickening in the anterior abdominal wall at the level of the umbilicus that may represent postoperative change. There is no abnormal fluid collection. Pelvis: The appendix is not well-visualized. The urinary bladder is unremarkable. No inflammatory process is seen. There is no evidence of mass or adenopathy. There is no evidence of bowel obstruction. IMPRESSION: Mild soft tissue thickening in the anterior abdominal wall at the level of the umbilicus may represent postoperative change. No abnormal fluid collection. Reviewed, Interpreted and Dictated by Jay Owen III, MD Transcribed by Soren Ross Authenticated by Jay Owen III, MD on 04/20/2021 12:49:02 PM [facility]
== END ==
PROVIDERS: PCP Nurse Practitioner Family; Visit Provider Surgery
DX: R10.11 Right upper quadrant pain (principal)
CPT/HCPCS: 74177; Q9967

== ENCOUNTER 2021-05-27 18:47 | Emergency (ER) | payer OTHER, SELFPAY ==
[2021-05-27 19:01] VITALS: BP 128/50; PULSE 85; RESP 18; TEMP 36.7; O2SAT 99; BMI 24.8
[2021-05-27 19:14] LABS: UTC Influenza A Antigen Negative (Negative)
[2021-05-27 19:15] LABS: UTC Influenza B Antigen Negative (Negative)
--- NOTE | 2021-05-27 19:17 | HMH.EDUTC ---
[facility] Disposition Clinical Impression: Nausea & vomiting Qualifiers: Vomiting type: unspecified Qualified Code(s): R11.2 - Nausea with vomiting, unspecified Disposition: Home, Self-Care Condition on Discharge: Good Instructions: Nausea and Vomiting-Adult Additional Instructions: Monitor temperature. Seek treatment if fever develops. Follow-up immediately if new or worse symptoms worsen or no noticeable improvement over 48 hours. Increase fluids such as water, Gatorade, Powerade, juice or Pedialyte with limited formula/dietary in children No food is okay as long as you are drinking. Once ready to eat start bland such as bananas, rice, applesauce, toast. Contagious until no diarrhea, vomiting, fever times 48 hours without medication Avoid antidiarrheals unless told otherwise. Best to let the virus run its course. Follow-up immediately for new or worsening symptoms or no noticeable improvement over the next 48 hours. Prescriptions: Ondansetron [Zofran 4mg ODT] 4 mg PO TIDP PRN 4 Days #12 tab PRN Reason: Nausea Transmission Status: Pending to [facility] Referrals: Riddhi Alfred APRN [Primary Care Provider] - Time of Disposition: 19:20 Medical Decision Making - Arthur Inquiry Pt receiving controlled substance: No Vital Signs: 05/27/21 19:01 Temperature 98.1 F Temperature Source Oral Pulse Rate [Left] 85 Respiratory Rate 18 Blood Pressure [Right Arm] 128/50 L Blood Pressure Mean [Right Arm] 76 02 Sat by Pulse Oximetry 99 - Lab Data Lab Results 05/27/21 19:04: Influenza Type A Ag Negative, Influenza Type B Ag Negative [facility] HPI - General Chief complaint: Urgent Treatment Center Stated complaint: CORTEZ Body pains Time Seen by Provider: 05/27/21 19:17 Mode of Arrival: Ambulatory Source of Information: Patient Limitations: No Limitations Description of Symptoms (Recalled from Triage Doc. by RN): pt c/o a CORTEZ and chills since yesterday. HEENT Symptoms (Recalled from RN notes): Yes Resp Symptoms (Recalled from RN notes): No Skin Symptoms (Recalled from RN notes): No MS Symptoms (Recalled from RN notes): No Functional Status (Recalled from RN notes): wnl - History of Present Illness Provider Complaint: 60 yr old female presents for nausea,vomiting, body aches and chills since last pm - Related Data Home Medications Medication Instructions Recorded Confirmed Famotidine [Pepcid] 40 mg PO DAILY 02/26/21 04/21/21 Previous Rx's Medication Instructions Recorded Ondansetron [Zofran 4mg ODT] 4 mg PO TIDP PRN 4 Days #12 tab 05/27/21 Allergies Allergy/AdvReac Type Severity Reaction Status Date / Time diphenhydramine Allergy Intermediate I-RASH Verified 04/21/21 10:35 [DIPHENHYDRAMINE] adhesive tape [ADHESIVE TAPE] Allergy Unknown SEIZURES Verified 04/21/21 10:35 - Worker's Comp Is this a Worker's Comp case?: No [facility] History - Hepatitis A Screen Drug use history?: No High risk sexual behaviors?: No History of sexually transmitted infection?: No Currently employed?: No Childcare worker?: No Do you have indoor plumbing?: Yes Do you have electricity?: Yes Attestation statement:: This patient has been screened for Hepatitis A risk factors. I have reviewed the patient's past medical history: Yes Medical History: Reports:: Gastroesophageal Reflux Disease(GERD), Renal Disease Denies:: Cancer, Diabetes Mellitus Type 1, Diabetes Mellitus Type 2, MRSA, Seizures Other Medical History: Denies: Blood Transfusion Reaction Other Surgeries: Yes: Appendectomy, Cholecystectomy, Colonoscopy, , Hysterectomy-Total, Hysterectomy-Partial Amputation: No Fractures: No - Social History Smoking Status: Current some day smoker Tobacco Type: cigarettes # Packs/Day (cigarettes): 1 Alcohol Intake: never Substance Use Type: denies use Occupational Status: employed Housing: house Household Members: spouse Family Hx:: Cancer ROS Obtained: Yes Systems reviewe
[2021-05-27 19:21] VITALS: BP 128/50; PULSE 85; RESP 18; TEMP 36.7
[2021-05-27 19:24] LABS: Adenovirus,PCR Not Detected (NotDetected); Bordetella Pertussis Not Detected (NotDetected); Chlamydophila Pneumoniae, PCR Not Detected (NotDetected); Coronavirus 19, PCR Not Detected (NotDetected); Coronavirus 229E Not Detected (NotDetected); Coronavirus NL63 Not Detected (NotDetected); Coronavirus OC43 Not Detected (NotDetected); Coronovirus HKU1,PCR Not Detected (NotDetected); Human Metapneumovirus Not Detected (NotDetected); Influenza A, PCR Not Detected (NotDetected); Influenza AH1, 2009 Not Detected (NotDetected); Influenza AH1, PCR Not Detected (NotDetected); Influenza AH3,PCR Not Detected (NotDetected); Influenza B, PCR Not Detected (NotDetected); Mycoplasma Pneumoniae, PCR Not Detected (NotDetected); Parainfluenza 1, PCR Not Detected (NotDetected); Parainfluenza 2, PCR Not Detected (NotDetected); Parainfluenza 3, PCR Not Detected (NotDetected); Parainfluenza 4, PCR Not Detected (NotDetected); Respiratory Syncytial Virus Not Detected (NotDetected); Rhinovirus/Enterovirus Not Detected (NotDetected)
== END 2021-05-27 19:23 | disposition home or self-care (01) ==
PROVIDERS: Emergency Provider Nurse Practitioner Family; PCP Nurse Practitioner Family
DX: R11.2 Nausea with vomiting, unspecified (principal); R51.9 Headache, unspecified; N18.9 Chronic kidney disease, unspecified; K21.9 Gastro-esophageal reflux disease without esophagitis; M79.10 Myalgia, unspecified site; F17.210 Nicotine dependence, cigarettes, uncomplicated; Z80.9 Family history of malignant neoplasm, unspecified; Z79.52 Long term (current) use of systemic steroids; Z20.822 Contact with and (suspected) exposure to COVID-19; Z88.8 Allergy status to other drugs, medicaments and biological substances; Z91.048 Other nonmedicinal substance allergy status
CPT/HCPCS: 87581; 87632; 87798; 87804; 99213; C9803; G0463; U0003; U0005

== ENCOUNTER 2021-06-24 14:19 | Emergency (ER) | payer OTHER, SELFPAY ==
[2021-06-24 14:42] VITALS: BP 145/77; PULSE 97; RESP 16; TEMP 36.6; O2SAT 96; BMI 24.2
--- NOTE | 2021-06-24 14:50 | HMH.EDUTC ---
[facility] [place] Impression: Upper respiratory infection, viral Disposition: Home, Self-Care Condition on Discharge: Good Instructions: DI for Viral Upper Respiratory Infection -- Adult Additional Instructions: No sign of a bacterial infection. Likely viral. Viruses can take 7-14 days to run their course. Nasal saline and bulb syringe or nose Katia to remove nasal drainage to help with nasal congestion. Hard to eat, drink, sleep with nasal congestion so important to keep this cleaned out. Monitor temp. Tylenol or Motrin as needed for pain or fever Encourage fluids, water, Gatorade, Powerade, Pedialyte if /toddler/child Warm salt water gargles Warm fluids Sore throat lozenges Sleep elevated Humidifier/vaporizer Follow-up immediately for new or worsening symptoms or no noticeable improvement over the next 48-72 hours. Prescriptions: predniSONE [Prednisone 20mg Tab] 20 mg PO BID #10 tab Transmission Status: Pending to [facility] Referrals: Riddhi Alfred APRN [Primary Care Provider] - Time of Disposition: 15:42 Medical Decision Making - Arthur Inquiry Pt receiving controlled substance: No Vital Signs: 06/24/21 14:42 Temperature 97.8 F Temperature Source Oral Pulse Rate [Radial] 97 H Respiratory Rate 16 Blood Pressure [Right Arm] 145/77 H Blood Pressure Mean [Right Arm] 99 02 Sat by Pulse Oximetry 96 - Lab Data Lab Results 06/24/21 14:46: Group A Strep Rapid Negative Orders (Tests/Meds): ORDERS Category Date Time Status Full Resp Panel w/COVID ([facility]) Routine Lab 06/24/21 14:46 Received Strep Screen Confirmation Stat Micro 06/24/21 14:46 [place] [facility] [place] - General Chief complaint: [facility] Stated complaint: sore throat, itchy ears, cough, chest congestion Time Seen by Provider: 06/24/21 14:50 Mode of Arrival: Ambulatory Source of Information: Patient Limitations: No Limitations Description of Symptoms (Recalled from Triage Doc. by RN): pt here with c/o congestion, cough, throat pain. pt was seen in her PCP office yesterday. she was swabbed for strep and flu. she was negative for both. here today because she is not feeling any better HEENT Symptoms (Recalled from RN notes): Yes Resp Symptoms (Recalled from RN notes): Yes Skin Symptoms (Recalled from RN notes): No MS Symptoms (Recalled from RN notes): No Functional Status (Recalled from RN notes): wnl - History of Present Illness Provider Complaint: 61 yr old female presents with c/o congestion, cough, sore throat. pt was seen in her PCP office yesterday. she was swabbed for strep and flu. she was negative for both. grandson has strep and a friend has something but she is not sure. here today because she is not feeling any better - Related Data Home Medications Medication Instructions Recorded Confirmed Famotidine [Pepcid] 40 mg PO DAILY 02/26/21 04/21/21 Previous Rx's Medication Instructions Recorded Ondansetron [Zofran 4mg ODT] 4 mg PO TIDP PRN 4 Days #12 tab 05/27/21 predniSONE [Prednisone 20mg 20 mg PO BID #10 tab 06/24/21 Tab] Allergies Allergy/AdvReac Type Severity Reaction Status Date / Time diphenhydramine Allergy Intermediate I-RASH Verified 04/21/21 10:35 [DIPHENHYDRAMINE] adhesive tape [ADHESIVE TAPE] Allergy Unknown SEIZURES Verified 04/21/21 10:35 - Worker's Comp Is this a Worker's Comp case?: No [facility] History - Hepatitis A Screen Attestation statement:: This patient has been screened for Hepatitis A risk factors. I have reviewed the patient's past medical history: Yes Medical History: Reports:: Gastroesophageal Reflux Disease(GERD), Renal Disease Denies:: Cancer, Diabetes Mellitus Type 1, Diabetes Mellitus Type 2, MRSA, Seizures Other Medical History: Denies: Blood Transfusion Reaction Other Surgeries: Yes: Appendectomy, Cholecystectomy, Colonoscopy, , Hysterectomy-Total, Hysterectomy-Partial Amputatio
[2021-06-24 15:36] LABS: Adenovirus,PCR Not Detected (NotDetected); Bordetella Pertussis Not Detected (NotDetected); Chlamydophila Pneumoniae, PCR Not Detected (NotDetected); Coronavirus 19, PCR Not Detected (NotDetected); Coronavirus 229E Not Detected (NotDetected); Coronavirus NL63 Not Detected (NotDetected); Coronavirus OC43 Not Detected (NotDetected); Coronovirus HKU1,PCR Not Detected (NotDetected); Human Metapneumovirus Not Detected (NotDetected); Influenza A, PCR Not Detected (NotDetected); Influenza AH1, 2009 Not Detected (NotDetected); Influenza AH1, PCR Not Detected (NotDetected); Influenza AH3,PCR Not Detected (NotDetected); Influenza B, PCR Not Detected (NotDetected); Mycoplasma Pneumoniae, PCR Not Detected (NotDetected); Parainfluenza 1, PCR Not Detected (NotDetected); Parainfluenza 2, PCR Not Detected (NotDetected); Parainfluenza 3, PCR Not Detected (NotDetected); Parainfluenza 4, PCR Not Detected (NotDetected); Rhinovirus/Enterovirus Not Detected (NotDetected)
[2021-06-24 15:40] LABS: Strep Scrn Group A (Rapid) Negative (Negative)
[2021-06-24 15:56] VITALS: BP 145/77; PULSE 97; RESP 16; TEMP 36.6
[2021-06-24 18:03] LABS: Respiratory Syncytial Virus Detected (NotDetected)
== END 2021-06-24 15:57 | disposition home or self-care (01) ==
PROVIDERS: Emergency Provider Nurse Practitioner Family; PCP Nurse Practitioner Family
DX: J06.9 Acute upper respiratory infection, unspecified (principal); B34.9 Viral infection, unspecified
CPT/HCPCS: 87430; 87581; 87632; 87798; 99212; C9803; G0463; U0003; U0005

== ENCOUNTER 2021-07-12 11:31 | Emergency (ER) | payer OTHER, SELFPAY ==
--- NOTE | 2021-07-12 11:48 | XR_ITS ---
PROCEDURE INFORMATION: Exam: XR Chest Exam date and time: 07/12/2021 12:18 PM Age: 61 years old Clinical indication: Cough; Additional info: Cough, congestion TECHNIQUE: Imaging protocol: XR of the chest. Views: 2 views. COMPARISON: CR CXR CHEST(2 VIEWS-NOT PORTABLE) 07/13/2016 10:32 PM FINDINGS: Lungs: No evidence of acute cardiopulmonary disease. Pleural spaces: Unremarkable. No pleural effusion. No pneumothorax. Heart/Mediastinum: Unremarkable. No cardiomegaly. Diaphragm: Hyperlucent changes are demonstrated. There is flattening of the hemidiaphragms. Increase in the lung volumes is demonstrated. The appearance of the lung parenchyma is unchanged. Bones/joints: Unremarkable. IMPRESSION: 1. No evidence of acute cardiopulmonary disease. 2. Findings compatible with chronic obstructive pulmonary disease. Findings stable.
--- NOTE | 2021-07-12 11:56 | HMH.EDUTC ---
[facility] [place] Clinical Impression: COPD exacerbation Acute bronchitis Qualifiers: Bronchitis organism: unspecified organism Qualified Code(s): J20.9 - Acute bronchitis, unspecified Disposition: Home, Self-Care Condition on Discharge: Good Instructions: How to Use a Metered-Dose Inhaler, DI for Chronic Obstructive Pulmonary Disease Additional Instructions: Drink plenty of fluids. Take tylenol or ibuprofen for pain or fever. Take the medications as directed. Follow up with your regular doctor. GO TO THE ER FOR ANY WORSENING SYMPTOMS Don't start the oral steroids until tomorrow, since you had the shot here today. Prescriptions: Albuterol Sulfate [Albuterol Sulfate Hfa] 2 puffs IH Q6HP PRN 30 Days #1 each PRN Reason: Shortness Of Breath Transmission Status: Received by [facility] Benzonatate [Benzonatate 100mg cap] 100 mg PO TIDP PRN #30 cap PRN Reason: Cough Transmission Status: Received by [facility] predniSONE [Deltasone 10mg tablet] 10 mg PO DAILY 9 Days #21 tab Transmission Status: Received by [facility] Azithromycin [Z-Colton 250mg Tab*] 250 mg PO UD DOSE PK #6 tab Transmission Status: Received by [facility] Referrals: Braden Wheeler MD [Primary Care Provider] - Forms: Work/School Release Time of Disposition: 13:02 Medical Decision Making - Medical Records Medical records reviewed: No: I reviewed the patient's medical records. - Arthur Inquiry Pt receiving controlled substance: No Vital Signs: 07/12/21 11:59 07/12/21 13:08 Temperature 98.4 F 98.4 F Temperature Source Oral Pulse Rate 83 Pulse Rate [Left Radial] 83 Respiratory Rate 19 19 Blood Pressure 119/70 Blood Pressure [Right Arm] 119/70 Blood Pressure Mean [Right Arm] 86 02 Sat by Pulse Oximetry 98 - Lab Data Lab results reviewed: Yes: I reviewed the patient's lab results. Orders (Tests/Meds): ED MEDICATIONS Discontinued Medications Generic Name Dose Route Start Last Admin Trade Name Freq PRN Reason Stop Dose Admin Ceftriaxone Sodium 1 gm 07/12/21 12:53 07/12/21 13:01 Ceftriaxone 1gm Vial IM 07/12/21 12:54 1 gm ONCE ONE Administration Lidocaine HCl 0 ml 07/12/21 12:53 07/12/21 13:01 Lidocaine 1% 5ml Pf Vial IM 07/12/21 12:54 2 ml ONCE ONE Administration Methylprednisolone Sodium Succinate 125 mg 07/12/21 12:53 07/12/21 13:02 Methylprednisolone Sod Succ 125mg Vial IM 07/12/21 12:54 125 mg ONCE ONE Administration - Radiology Data #1 Image(s): Chest Image Reviewed: Yes I reviewed the patient's radiology image, Yes I have reviewed radiologist's interpretation Preliminary Findings: Abnormal, No Infiltrates Seen PROCEDURE INFORMATION: Exam: XR Chest Exam date and time: 07/12/2021 12:18 PM Age: 61 years old Clinical indication: Cough; Additional info: Cough, congestion TECHNIQUE: Imaging protocol: XR of the chest. Views: 2 views. COMPARISON: CR CXR CHEST(2 VIEWS-NOT PORTABLE) 07/13/2016 10:32 PM FINDINGS: Lungs: No evidence of acute cardiopulmonary disease. Pleural spaces: Unremarkable. No pleural effusion. No pneumothorax. Heart/Mediastinum: Unremarkable. No cardiomegaly. Diaphragm: Hyperlucent changes are demonstrated. There is flattening of the hemidiaphragms. Increase in the lung volumes is demonstrated. The appearance of the lung parenchyma is unchanged. Bones/joints: Unremarkable. IMPRESSION: 1. No evidence of acute cardiopulmonary disease. 2. Findings compatible with chronic obstructive pulmonary disease. Findings stable. [facility] [place] - General Stated complaint: soa, congestion, diarrhea, unable to eat Time Seen by Provider: 07/12/21 11:56 - History of Present Illness Provider Complaint: She states that for the past 3 weeks she has had a cough, sinus congestion, chest congestion, and a productive cou
[2021-07-12 11:59] VITALS: BP 119/70; PULSE 83; RESP 19; TEMP 36.9; O2SAT 98; BMI 23.3
[2021-07-12 13:08] VITALS: BP 119/70; PULSE 83; RESP 19; TEMP 36.9
== END 2021-07-12 13:09 | disposition home or self-care (01) ==
PROVIDERS: Emergency Provider Nurse Practitioner Family; PCP Family Medicine
DX: J20.9 Acute bronchitis, unspecified (principal); J44.1 Chronic obstructive pulmonary disease with (acute) exacerbation; R19.7 Diarrhea, unspecified; R53.81 Other malaise; N28.9 Disorder of kidney and ureter, unspecified; K21.9 Gastro-esophageal reflux disease without esophagitis; F17.210 Nicotine dependence, cigarettes, uncomplicated; Z20.822 Contact with and (suspected) exposure to COVID-19; Z79.899 Other long term (current) drug therapy; Z88.8 Allergy status to other drugs, medicaments and biological substances; Z91.048 Other nonmedicinal substance allergy status; Z80.9 Family history of malignant neoplasm, unspecified
CPT/HCPCS: 71046; 96372; 99213; C9803; G0463; J0696; U0003; U0005

== ENCOUNTER → 2021-07-21 15:25 | Outpatient (CLI) | payer OTHER, SELFPAY | PROVIDERS: PCP Nurse Practitioner Family; Visit Provider Nurse Practitioner Family | DX: Z20.822 Contact with and (suspected) exposure to COVID-19 (principal); J98.8 Other specified respiratory disorders | CPT/HCPCS: C9803; U0003; U0005 ==

== ENCOUNTER → 2021-08-13 13:26 | Outpatient (CLI) | payer OTHER, SELFPAY ==
--- NOTE | 2021-08-13 13:29 | XR_ITS ---
FINAL REPORT CLINICAL HISTORY: lt shoulder pain COMPARISON: November 10, 2020 FINDINGS: LEFT SHOULDER Three views demonstrate no acute fracture or dislocation. There are stable, mild degenerative changes of the acromioclavicular and glenohumeral joints. The visualized bony structures are well aligned. No soft tissue abnormality is seen. IMPRESSION: Mild degenerative changes, stable. Reviewed, Interpreted and Dictated by Jay Owen III, MD Transcribed by Tiffany Charles Authenticated and [facility]
== END ==
PROVIDERS: PCP Family Medicine; Visit Provider Orthopaedic Surgery
DX: M25.512 Pain in left shoulder (principal)
CPT/HCPCS: 73030

== ENCOUNTER 2021-09-06 16:44 | Emergency (ER) | payer OTHER, SELFPAY ==
[2021-09-06 16:50] VITALS: BP 124/66; PULSE 85; RESP 18; TEMP 36.7; O2SAT 98; BMI 23.8
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
[2021-09-06 18:07] VITALS: BP 124/66; PULSE 85; RESP 18; TEMP 36.7; O2SAT 98
== END 2021-09-06 18:10 | disposition home or self-care (01) ==
PROVIDERS: Emergency Provider Nurse Practitioner; PCP Family Medicine
DX: S20.211A Contusion of right front wall of thorax, initial encounter (principal); Z79.899 Other long term (current) drug therapy; Z88.8 Allergy status to other drugs, medicaments and biological substances; K21.9 Gastro-esophageal reflux disease without esophagitis; K76.9 Liver disease, unspecified
CPT/HCPCS: 71101; 99212; G0463

== ENCOUNTER 2021-10-07 14:14 | Emergency (ER) | payer OTHER, SELFPAY ==
[2021-10-07 15:15] VITALS: BP 129/90; PULSE 82; RESP 19; TEMP 36.7; O2SAT 99; BMI 23.2
--- NOTE | 2021-10-07 15:45 | EXP.UTC ---
Discharge Plan Disposition Patient Disposition: Home, Self-Care Condition: Good Prescriptions Prescriptions: No Action omeprazole 40 mg capsule,delayed release(DR/EC) 40 mg PO DAILY Linzess 72 mcg capsule 72 mcg PO DAILY famotidine 40 MG tablet 40 mg PO DAILY albuterol sulfate 8.5 GM HFA aerosol inhaler 2 puffs IH Q6HP PRN (Reason: Shortness Of Breath) 30 Days Qty: 1 5RF Referrals Referrals: Braden Wheeler MD [Primary Care Provider] - Enter time for follow up Activity Restrictions/Add. Instructions Additional Instructions/Restrictions: *Monitor Temp, Over the counter Motrin or Tylenol as directed/as needed Tylenol every 4 hours and Motrin every 6 hours (as long as your family doctor has told you that you can take it) for fever or pain. and straight to ER if unable to lower temp less than 101.0 after medication given *Warm salt water gargles may help to soothe the throat *Throat Lozenges? *Warm fluids like tea with honey may help to soothe the throat? *Sleep elevated *Humidifier/Vaporizer Follow up IMMEDIATELY for new or worsening symptoms or no Noticeable improvement over the next 48-72 hours. 911 for difficulty breathing or swallowing You were tested for today for COVID19 your test result should be back in the next 24-48 hours, you may check your results on the [facility] My Health Portal Make sure to take your Vitamins Vit. C Vit D and Zinc if you can take them Clinical Impressions Clinical Impression: Diarrhea, Generalized body aches Stand Alone Forms Stand Alone Forms: Work/School Release Discharge ED Provider: Abena Daily [facility] [place] Stated complaint: headache Mode of Arrival: Ambulatory Source of Information: Patient Limitations: No Limitations Time Seen by Provider: 10/07/21 15:35 Description of Symptoms (Recalled from Triage Doc. by RN): PATIENT C/O BODY ACHES, DIARRHEA, NAUSEA, AND HEADACHE X 3 DAYS HEENT Symptoms (Recalled from RN notes): Yes Resp Symptoms (Recalled from RN notes): No Skin Symptoms (Recalled from RN notes): No MS Symptoms (Recalled from RN notes): No Functional Status (Recalled from RN notes): WNL History of Present Illness Provider Complaint: Patient states that she was recently exposed to COVID States that she has been having chills, body aches, nausea and diarrhea for the last 3 days so today she came in to get tested for COVID Related Data Home Medications Medication Instructions Recorded Confirmed famotidine 40 mg tablet 40 mg PO DAILY Reflux/Acid reflux 02/26/21 08/13/21 linaclotide 72 mcg capsule 72 mcg PO DAILY 08/13/21 08/13/21 (Linzess) omeprazole 40 mg capsule,delayed 40 mg PO DAILY 08/13/21 08/13/21 release Previous Rx's Medication Instructions Recorded albuterol sulfate 90 mcg/actuation 2 puffs inhalation Q6HP PRN 07/12/21 aerosol inhaler Shortness Of Breath 30 days #1 ea Allergies Allergy/AdvReac Type Severity Reaction Status Date / Time diphenhydramine Allergy Intermediate I-RASH Verified 08/13/21 14:04 [DIPHENHYDRAMINE] adhesive tape [ADHESIVE TAPE] Allergy Unknown SEIZURES Verified 08/13/21 14:04 Worker's Comp Is this a Worker's Comp case?: No PFSH PFSH Medical History COPD (chronic obstructive pulmonary disease) Depression Hypertension Surgical History (Updated 10/07/21 @ 15:23 by Pau Freeman RN) History of section History of cholecystectomy Social History Smoking Status: Current some day smoker tobacco type: cigarettes packs per day: 1 alcohol intake: never substance use type: denies use current occupational status: other Travel in the last 8 weeks: None household members: spouse housing: house number of children: 2 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
[2021-10-07 15:57] VITALS: BP 129/90; PULSE 82; RESP 19; TEMP 36.7; O2SAT 99
== END 2021-10-07 16:01 | disposition home or self-care (01) ==
PROVIDERS: Emergency Provider Nurse Practitioner; PCP Family Medicine
DX: R19.7 Diarrhea, unspecified (principal); M79.10 Myalgia, unspecified site; Z20.822 Contact with and (suspected) exposure to COVID-19
CPT/HCPCS: 99212; C9803; G0463; U0003; U0005

== ENCOUNTER → 2021-10-11 16:46 | Outpatient (CLI) | payer OTHER, SELFPAY ==
--- NOTE | 2021-10-11 16:47 | MR_ITS ---
PROCEDURE INFORMATION: Exam: MR Cervical Spine Without Contrast Exam date and time: 10/11/2021 4:55 PM Age: 61 years old Clinical indication: Pain; Cervicalgia; Additional info: Radiculopathy. Left arm and shoulder pain and numbness. Symptoms for 2 years. No injury or trauma. TECHNIQUE: Imaging protocol: Magnetic resonance imaging of the cervical spine without contrast. COMPARISON: MR CERVICAL SPINE WO CON 10/29/2019 3:51 PM FINDINGS: Alignment grossly normal. Signal intensity within the bone marrow normal. Spinal cord normal. Visualized portions of the brain in the posterior fossa is also normal. Annular disk bulge and/or protrusions C5-C6 and C6-C7 No marrow edema C2-C3: Central canal and neural foramina are widely patent. C3-C4: Central canal and neural foramina are widely patent. C4-C5: Central canal and neural foramina are widely patent. C5-C6: Broad-based annular disc bulge effaces the anterior aspect of the thecal sac mildly so. Central canal and neural foramina are widely patent. C6-C7: Broad-based annular disc bulge effaces the anterior aspect of the thecal sac mildly so. Central canal and neural foramina are widely patent. C7-T1: Central canal and neural foramina are widely patent. IMPRESSION: Mild degenerative disc disease C5-C6 and C6-C7
== END ==
PROVIDERS: PCP Family Medicine; Visit Provider Orthopaedic Surgery
DX: M54.12 Radiculopathy, cervical region (principal); R20.0 Anesthesia of skin
CPT/HCPCS: 72141; 76376

== ENCOUNTER 2021-11-25 10:36 | Emergency (ER) | payer OTHER, SELFPAY ==
[2021-11-25 10:45] VITALS: BP 139/76; PULSE 77; RESP 20; TEMP 37.1; O2SAT 97; BMI 23.3
--- NOTE | 2021-11-25 10:54 | EXP.UTC ---
Discharge Plan Disposition Patient Disposition: Home, Self-Care Condition: Good Prescriptions Prescriptions: New benzonatate [benzonatate] 100 mg capsule 100 mg PO TIDP PRN (Reason: Cough) Qty: 30 0RF ondansetron 4 mg Tablet,Disintegrating 4 mg PO Q8H PRN (Reason: Nausea) Qty: 20 0RF No Action omeprazole 40 mg capsule,delayed release(DR/EC) 40 mg PO DAILY Linzess 72 mcg capsule 72 mcg PO DAILY famotidine 40 MG tablet 40 mg PO DAILY albuterol sulfate 8.5 GM HFA aerosol inhaler 2 puffs IH Q6HP PRN (Reason: Shortness Of Breath) 30 Days Qty: 1 5RF Referrals Follow up/Referrals: Braden Wheeler MD [Primary Care Provider] - See instructions Activity Restrictions/Add. Instructions Additional Instructions/Restrictions: Drink plenty of fluids. Take tylenol or ibuprofen for pain or fever. Take the medications as directed. Follow up with your regular doctor. GO TO THE ER FOR ANY WORSENING SYMPTOMS Quarantine until you know the results of your covid-19 test. Notify your school or workplace of your results and follow their instructions regarding return to work/school. Clinical Impressions Clinical Impression: Viral syndrome Stand Alone Forms Stand Alone Forms: Work/School Release Instructions Patient Instructions: Coronavirus Disease 2019, Preventing the Spread of Coronavirus Discharge Instructions Discharge ED Provider: Toño Ruelas [facility] General Stated complaint: Diahrrea, vomitting, BA Time Seen by Provider: 11/25/21 10:53 History of Present Illness Provider Complaint: She states that for the past 1 day she has had body aches, chills, low grade fever, a scratchy sore throat and she has felt bad. She works at [employer]. Related Data Home Medications Medication Instructions Recorded Confirmed famotidine 40 mg tablet 40 mg PO DAILY Reflux/Acid reflux 02/26/21 08/13/21 linaclotide 72 mcg capsule 72 mcg PO DAILY 08/13/21 08/13/21 (Linzess) omeprazole 40 mg capsule,delayed 40 mg PO DAILY 08/13/21 08/13/21 release Previous Rx's Medication Instructions Recorded albuterol sulfate 90 mcg/actuation 2 puffs inhalation Q6HP PRN 07/12/21 aerosol inhaler Shortness Of Breath 30 days #1 ea benzonatate 100 mg capsule 100 mg PO TIDP PRN Cough #30 caps 11/25/21 ondansetron 4 mg disintegrating 4 mg PO Q8H PRN Nausea #20 tabs 11/25/21 tablet Allergies Allergy/AdvReac Type Severity Reaction Status Date / Time diphenhydramine Allergy Intermediate I-RASH Verified 08/13/21 14:04 [DIPHENHYDRAMINE] adhesive tape [ADHESIVE TAPE] Allergy Unknown SEIZURES Verified 08/13/21 14:04 [facility] Medical History COPD (chronic obstructive pulmonary disease) Depression Hypertension Migraine Surgical History History of section History of cholecystectomy Social History Smoking Status: Current some day smoker tobacco type: cigarettes packs per day: 1 alcohol intake: never substance use type: denies use current occupational status: other Travel in the last 8 weeks: None household members: spouse housing: house number of children: 2 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 current occupational exposures/hazards: No caffeine: Yes ROS Obtained: Yes All systems reviewed & no additional complaints except as documented Constitutional Constitutional: Reports chills and Reports fever(s) Eyes Eyes: Denies eye discharge ENT Ears, Nose, Mouth, and Throat: Reports as per HPI Cardiovascular Cardiovascular: Denies chest pain Respiratory Respiratory: Denies chest congestion and Reports cough Gastrointestinal Gastrointestingal: Reports nausea; Denies abdominal pain, constipation, cramping, diarrhea or vomiting Musculoskeletal Musculoskeletal: Denies arthralgias Integumentary/Breasts Skin/Cushman
[2021-11-25 11:47] VITALS: BP 139/76; PULSE 77; RESP 20; TEMP 37.1; O2SAT 97
== END 2021-11-25 11:50 | disposition home or self-care (01) ==
PROVIDERS: Emergency Provider Nurse Practitioner Family; PCP Family Medicine
DX: B34.9 Viral infection, unspecified (principal)
CPT/HCPCS: 99212; C9803; G0463; U0003; U0005

== ENCOUNTER 2021-12-28 15:15 | Emergency (ER) | payer OTHER, SELFPAY ==
--- NOTE | 2021-12-28 16:25 | EXP.UTC ---
Discharge Plan Disposition Patient Disposition: Home, Self-Care Condition: Good Prescriptions Prescriptions: New benzonatate [benzonatate] 100 mg capsule 100 mg PO TIDP PRN (Reason: Cough) Qty: 30 0RF ondansetron 4 mg Tablet,Disintegrating 4 mg PO Q8H PRN (Reason: Nausea) Qty: 12 0RF No Action omeprazole 40 mg capsule,delayed release(DR/EC) 40 mg PO DAILY Linzess 72 mcg capsule 72 mcg PO DAILY desvenlafaxine succinate [Pristiq] 50 mg tablet extended release 24 hr 50 mg PO DAILY Qty: 30 1RF benzonatate [benzonatate] 100 mg capsule 100 mg PO TIDP PRN (Reason: Cough) Qty: 30 0RF ondansetron 4 mg Tablet,Disintegrating 4 mg PO Q8H PRN (Reason: Nausea) Qty: 20 0RF famotidine 40 MG tablet 40 mg PO DAILY albuterol sulfate 8.5 GM HFA aerosol inhaler 2 puffs IH Q6HP PRN (Reason: Shortness Of Breath) 30 Days Qty: 1 5RF Referrals Follow up/Referrals: Braden Wheeler MD [Primary Care Provider] - See instructions Activity Restrictions/Add. Instructions Additional Instructions/Restrictions: Drink plenty of fluids. Take tylenol or ibuprofen for pain or fever. Take the medications as directed. Follow up with your regular doctor. GO TO THE ER FOR ANY WORSENING SYMPTOMS Clinical Impressions Clinical Impression: Acute viral syndrome Stand Alone Forms Stand Alone Forms: Work/School Release Instructions Patient Instructions: DI for Viral Syndrome, Ondansetron Discharge ED Provider: Toño Ruelas [facility] General Stated complaint: sore throat, cough, diarrhea, chills Time Seen by Provider: 12/28/21 16:25 History of Present Illness Provider Complaint: She states that since yesterday she has had body aches, chills, low grade fever, and n/v/d. She denies any abdominal pain. Related Data Home Medications Medication Instructions Recorded Confirmed famotidine 40 mg tablet 40 mg PO DAILY Reflux/Acid reflux 02/26/21 12/28/21 linaclotide 72 mcg capsule 72 mcg PO DAILY 08/13/21 12/28/21 (Linzess) omeprazole 40 mg capsule,delayed 40 mg PO DAILY 08/13/21 12/28/21 release Previous Rx's Medication Instructions Recorded albuterol sulfate 90 mcg/actuation 2 puffs inhalation Q6HP PRN 07/12/21 aerosol inhaler Shortness Of Breath 30 days #1 ea benzonatate 100 mg capsule 100 mg PO TIDP PRN Cough #30 caps 11/25/21 ondansetron 4 mg disintegrating 4 mg PO Q8H PRN Nausea #20 tabs 11/25/21 tablet desvenlafaxine succinate 50 mg 50 mg PO DAILY #30 tabs 12/27/21 tablet,extended release 24 hr (Pristiq) benzonatate 100 mg capsule 100 mg PO TIDP PRN Cough #30 caps 12/28/21 ondansetron 4 mg disintegrating 4 mg PO Q8H PRN Nausea #12 tabs 12/28/21 tablet Allergies Allergy/AdvReac Type Severity Reaction Status Date / Time diphenhydramine Allergy Intermediate I-RASH Verified 12/28/21 14:13 [DIPHENHYDRAMINE] adhesive tape [ADHESIVE TAPE] Allergy Unknown SEIZURES Verified 12/28/21 14:13 PFSH PFSH Medical History COPD (chronic obstructive pulmonary disease) Depression Hypertension Major depressive disorder Migraine Mood disorder Surgical History History of section History of cholecystectomy Social History Smoking Status: Current some day smoker tobacco type: cigarettes packs per day: 1 alcohol intake: never substance use type: denies use current occupational status: other Travel in the last 8 weeks: None household members: spouse housing: house number of children: 2 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
[2021-12-28 16:41] LABS: UTC Influenza A Antigen Negative (Negative); UTC Influenza B Antigen Negative (Negative); UTC Strep Screen (Rapid) Negative (Negative)
[2021-12-28 16:59] VITALS: BP 141/78; PULSE 86; RESP 18; TEMP 36.7; O2SAT 97; BMI 23.3
[2021-12-28 17:02] VITALS: BP 141/78; PULSE 86; RESP 18; TEMP 36.7
[2021-12-28 17:16] LABS: Adenovirus,PCR Not Detected (NotDetected); Bordetella Pertussis Not Detected (NotDetected); Chlamydophila Pneumoniae, PCR Not Detected (NotDetected); Coronavirus 19, PCR Not Detected (NotDetected); Coronavirus 229E Not Detected (NotDetected); Coronavirus NL63 Not Detected (NotDetected); Coronavirus OC43 Not Detected (NotDetected); Coronovirus HKU1,PCR Not Detected (NotDetected); Human Metapneumovirus Not Detected (NotDetected); Influenza A, PCR Not Detected (NotDetected); Influenza AH1, 2009 Not Detected (NotDetected); Influenza AH1, PCR Not Detected (NotDetected); Influenza AH3,PCR Not Detected (NotDetected); Influenza B, PCR Not Detected (NotDetected); Mycoplasma Pneumoniae, PCR Not Detected (NotDetected); Parainfluenza 1, PCR Not Detected (NotDetected); Parainfluenza 2, PCR Not Detected (NotDetected); Parainfluenza 3, PCR Not Detected (NotDetected); Parainfluenza 4, PCR Not Detected (NotDetected); Respiratory Syncytial Virus Not Detected (NotDetected); Rhinovirus/Enterovirus Not Detected (NotDetected)
== END 2021-12-28 17:09 | disposition home or self-care (01) ==
PROVIDERS: Emergency Provider Nurse Practitioner Family; PCP Family Medicine
DX: J02.9 Acute pharyngitis, unspecified (principal); R05.9 Cough, unspecified; R19.7 Diarrhea, unspecified; R50.9 Fever, unspecified; B34.9 Viral infection, unspecified
CPT/HCPCS: 87581; 87632; 87798; 87804; 87880; 99212; C9803; G0463; U0003; U0005

== ENCOUNTER → 2022-02-23 11:33 | Outpatient (CLI) | payer OTHER, SELFPAY ==
--- NOTE | 2022-02-23 11:50 | FL_ITS ---
FINAL REPORT TECHNIQUE: Patient ingested thick and thin barium contrast. Spot films were obtained. 47 images were saved. CLINICAL HISTORY: Epigastric pain for several months. COMPARISON: None. FINDINGS: There is mild esophageal dysmotility. There is mild irregularity of the esophageal wall, may represent esophagitis. There is a small sliding type hiatal hernia. No gastroesophageal reflux is demonstrated during the exam. The stomach is normal in size, shape, and position. Gastric fold pattern is grossly unremarkable. Duodenal bulb and sweep are unremarkable. 13 mm Barium tablet is delayed in the mid esophagus, but does pass during the exam. Fluoroscopy time: 3 minutes, 25 seconds IMPRESSION: Mild esophageal dysmotility. Mild irregularity of the esophageal wall, may represent esophagitis. Small sliding type hiatal hernia. Reviewed, Interpreted and Dictated by Jay Owen III, MD Transcribed by Heidi Duran PA-C Authenticated and [facility]
== END ==
PROVIDERS: PCP Family Medicine; Visit Provider Family Medicine
DX: R10.13 Epigastric pain (principal)
CPT/HCPCS: 74240

== ENCOUNTER 2022-03-17 14:22 | Emergency (ER) | payer OTHER, SELFPAY ==
--- NOTE | 2022-03-17 15:12 | EXP.UTC ---
Discharge Plan Disposition Patient Disposition: Home, Self-Care Condition: Good Prescriptions Prescriptions: New ibuprofen [ibuprofen] 600 mg tablet 600 mg PO Q6HP PRN (Reason: Mild Pain) Qty: 30 0RF No Action omeprazole 40 mg capsule,delayed release(DR/EC) 40 mg PO DAILY Linzess 72 mcg capsule 72 mcg PO DAILY desvenlafaxine succinate [Pristiq] 50 mg tablet extended release 24 hr 50 mg PO DAILY Qty: 30 1RF benzonatate [benzonatate] 100 mg capsule 100 mg PO TIDP PRN (Reason: Cough) Qty: 30 0RF ondansetron 4 mg Tablet,Disintegrating 4 mg PO Q8H PRN (Reason: Nausea) Qty: 20 0RF benzonatate [benzonatate] 100 mg capsule 100 mg PO TIDP PRN (Reason: Cough) Qty: 30 0RF ondansetron 4 mg Tablet,Disintegrating 4 mg PO Q8H PRN (Reason: Nausea) Qty: 12 0RF famotidine 40 MG tablet 40 mg PO DAILY albuterol sulfate 8.5 GM HFA aerosol inhaler 2 puffs IH Q6HP PRN (Reason: Shortness Of Breath) 30 Days Qty: 1 5RF Referrals Follow up/Referrals: Braden Wheeler MD [Primary Care Provider] - See instructions Chano Pollard DO [Staff Physician] - See instructions Activity Restrictions/Add. Instructions Additional Instructions/Restrictions: Rest the extremity, Wear the george wrap for compression, Elevate the extremity as tolerated while you are resting. Take ibuprofen for pain. I sent in a prescription to your pharmacy. Follow up with Dr. Pollard (orthopedics). I put in a referral but you need to call his office and schedule an appointment. Follow up with your regular doctor. GO TO THE ER FOR ANY WORSENING SYMPTOMS Clinical Impressions Clinical Impression: Contusion of knee, right Stand Alone Forms Stand Alone Forms: Work/School Release Instructions Patient Instructions: DI for Contusion, DI for Knee Pain Discharge ED Provider: Toño Ruelas [facility] General Stated complaint: Fall@work 03/15 0850 RT knee pain Time Seen by Provider: 03/17/22 15:12 History of Present Illness Provider Complaint: She states that she fell at work and came down on her right knee on03/15. Since then she has had right knee pain when she walks on it. She denies instability of the knee. She denies other injury. Related Data Home Medications Medication Instructions Recorded Confirmed famotidine 40 mg tablet 40 mg PO DAILY Reflux/Acid reflux 02/26/21 12/28/21 linaclotide 72 mcg capsule 72 mcg PO DAILY 08/13/21 12/28/21 (Linzess) omeprazole 40 mg capsule,delayed 40 mg PO DAILY 08/13/21 12/28/21 release Previous Rx's Medication Instructions Recorded albuterol sulfate 90 mcg/actuation 2 puffs inhalation Q6HP PRN 07/12/21 aerosol inhaler Shortness Of Breath 30 days #1 ea benzonatate 100 mg capsule 100 mg PO TIDP PRN Cough #30 caps 11/25/21 ondansetron 4 mg disintegrating 4 mg PO Q8H PRN Nausea #20 tabs 11/25/21 tablet desvenlafaxine succinate 50 mg 50 mg PO DAILY #30 tabs 12/27/21 tablet,extended release 24 hr (Pristiq) benzonatate 100 mg capsule 100 mg PO TIDP PRN Cough #30 caps 12/28/21 ondansetron 4 mg disintegrating 4 mg PO Q8H PRN Nausea #12 tabs 12/28/21 tablet ibuprofen 600 mg tablet 600 mg PO Q6HP PRN Mild Pain #30 03/17/22 tabs Allergies Allergy/AdvReac Type Severity Reaction Status Date / Time diphenhydramine Allergy Intermediate I-RASH Verified 03/17/22 15:28 [DIPHENHYDRAMINE] adhesive tape [ADHESIVE TAPE] Allergy Unknown SEIZURES Verified 03/17/22 15:28 [facility] Disclaimer: The information contained in this section may have been updated after the patient was seen, as this information can be updated by other users. Medical History COPD (chronic obstructive pulmonary disease) Depression Hypertension Major depressive disorder Migraine Mood disorder Surgical History History of section History of cholecystectomy Social Hi
--- NOTE | 2022-03-17 15:16 | XR_ITS ---
FINAL REPORT CLINICAL HISTORY: fall Monday unable to move leg FINDINGS: Right knee Three views were obtained. There is no acute fracture or dislocation. There are mild degenerative changes. No joint effusion is identified. No soft tissue abnormality is identified. IMPRESSION: No acute process. Reviewed, Interpreted and Dictated by Jay Owen III, MD Transcribed by Lauren Rodriguez Authenticated and [facility]
[2022-03-17 15:20] VITALS: BP 153/83; PULSE 79; RESP 20; TEMP 36.9; O2SAT 98; BMI 23.3
[2022-03-17 16:37] VITALS: BP 153/83; PULSE 79; RESP 20; TEMP 36.9; O2SAT 98
== END 2022-03-17 16:37 | disposition home or self-care (01) ==
PROVIDERS: Emergency Provider Nurse Practitioner Family; PCP Family Medicine
DX: S80.01XA Contusion of right knee, initial encounter (principal); W19.XXXA Unspecified fall, initial encounter; Y99.0 Civilian activity done for income or pay
CPT/HCPCS: 73562; 99212; G0463

== ENCOUNTER → 2022-06-27 08:02 | Outpatient (CLI) | payer OTHER, SELFPAY ==
--- NOTE | 2022-06-27 08:09 | US_ITS ---
FINAL REPORT TECHNIQUE: Ultrasound images through the abdomen were obtained. CLINICAL HISTORY: UPPER ABDOMINAL PAIN FINDINGS: There is fatty infiltration of the liver. The remaining visualized solid abdominal organs are unremarkable. The pancreas is partially obscured by overlying bowel gas. The gallbladder is surgically absent. Common duct is at the upper limits of normal at 6 mm. There is no fluid collection identified. The visualized portions of the aorta and the IVC are normal. IMPRESSION: Fatty infiltration of the liver. Post cholecystectomy with common duct at the upper limits of normal in size. Reviewed, Interpreted and Dictated by Jay Owen III, MD Transcribed by Tara Hayward Authenticated and [facility]
== END ==
PROVIDERS: PCP Family Medicine; Visit Provider Nurse Practitioner Family
DX: R10.10 Upper abdominal pain, unspecified (principal)
CPT/HCPCS: 76700

== ENCOUNTER 2022-06-28 15:30 | Outpatient (RCR) | payer OTHER, SELFPAY ==
--- NOTE | 2022-04-22 11:46 | HMH.PTOPEV ---
PT Outpatient Evaluation Rehab PT Outpatient Evaluation Start: 04/22/22 11:18 Freq: Status: Active Protocol: Document 04/22/22 11:18 PAWEL (Rec: 04/22/22 11:46 PAWEL [id number]) E-signed By Miguel Alston, PT Outpatient Therapy Subjective History Subjective History Pt reports work-related injury on 03/15/22. Pt reports slipping on wet spot while working at [employer], landing directly on right knee cap. Pt reports intermittent right knee pain, instability, and popping/clicking since initial injury. Chief Complaint Pain,Gives out/Unstable, Weakness Symptom Type Ache,Sharp,Dull Symptoms Relieved By Rest/Positioning,OTC Meds Symptoms Aggravated By Standing,Walking Prior Functional Limitations None Current Functional Limitations Housework,Standing,Walking, Stairs Symptom Description Constant but Variable Level of pain today (0-10) 0 Pain scale - at its best (0-10) 0 Pain scale - at its worst (0-10) 6 Hip/Knee Eval Gait Observation General Gait Pattern Observation Antalgic Gait Assistive Device Assistive Devices None / NA Palpation Tenderness right Knee Palpation Overall Comment 3/4 medial jt line, 1-2/4 popiteal space MMT Hip Flexion Strength Grade 4- Good- Hip Abduction Strength Grade 3+ Fair+ Hip Adduction Strength Grade 3+ Fair+ Hip Extension Strength Grade 4- Good- Hip External Rotation Strength Grade 4- Good- Hip Internal Rotation Strength Grade 4- Good- Knee Extension Strength Grade 4- Good- Knee Flexion Strength Grade 4- Good- ROM Knee Flexion Active Range of Motion ( 0-125 degrees) Effusion joint effusion knee exam standard right Mid - Patellar Circumerential Measure ( 36 cm) Special Tests Knee Valgus Stress Test Negative Right Knee Varus Stress Test Negative Right Knee Mague Test Positive Right Patella Apprehension Test Negative Right Outpatient Therapy Assessment Impairments Problems/Impairmments Palpation Tenderness,Impaired Range of Motion,Impaired Strength,Impaired Gait Pattern ,Impaired Walking,Impaired Standing,Impaired Household Care,Impaired Stair Climbing, Increased Edema,Subjective C/O
--- NOTE | 2022-05-24 13:12 | HMH.RHREAS ---
Rehab Reassessment Rehab OP Re-assessment Start: 05/24/22 13:06 Freq: Status: Active Protocol: Document 05/24/22 13:06 PAWEL (Rec: 05/24/22 13:11 PAWEL [id number]) E-signed By Miguel Alston, PT Rehab Re-assessment Subjective Subjective Pt reports absence from skilled P.T. since 05/01/22 d/t fall at work and sustained a left wrist fx. Pt reports however right knee has improved over the last month with less pain and improved function. Pt reports 3-4/10 right knee pain on VAS. Objective Objective Notes AROM: RIGHT KNEE FLX 0-128 MMT: RIGHT HIP FLX 4/5, R HIP ABD 4--4/5, R HIP ADD 4/5, R HIP EXT 4--4/5, R KNEE EXT 4-4 +/5, R KNEE FLX 4/5 TTP: RIGHT KNEE LATERAL JT LINE 1/4, MED JT LINE 1/4, POPITEAL SPACE 0-1/4 GAIT: WFL ON LEVEL TERRAIN Assessment Progress Assessment Progressing as Expected Assessment Notes IMPROVED AROM, STRENGTH, TTP, AND GAIT Patient goals met STG'S 07/21 LTG'S 03/25 Goals Not Met STG'S 03/23, LTG'S 09/22 Plan Plan Pt to continue w/skilled P.T. to make further improvements in right knee ROM, strength, TTP, and gait pattern to allow for optimal function Frequency of Therapy 1-2x/wk Duration of therapy 3-5wks Time and Billing Re-Eval Time 12 Re-Eval Billing Units 1 PHYSICIAN CERTIFICATION: I certify the specified therapy services for Breanna Barr are required, authorized, and reviewed every 30 days.
== END 2022-06-28 15:35 | disposition home or self-care (01) ==
LOC: PT 15:30
PROVIDERS: Visit Provider Orthopaedic Surgery
DX: M25.561 Pain in right knee (principal)
CPT/HCPCS: 97010; 97014; 97110; 97163; 97164; 97530; G0283

== ENCOUNTER 2022-07-27 14:00 | Outpatient (RCR) | payer OTHER, SELFPAY | END 2022-07-27 14:05 | disposition home or self-care (01) | LOC: OT 14:00 | PROVIDERS: PCP Family Medicine; Visit Provider Nurse Practitioner Acute Care | DX: S52.502A Unspecified fracture of the lower end of left radius, initial encounter for closed fracture (principal) | CPT/HCPCS: 97010; 97014; 97035; 97110; 97140; 97164; 97165; 97530; G0283 ==

== ENCOUNTER → 2022-08-24 16:29 | Outpatient (CLI) | payer OTHER, SELFPAY ==
[2022-08-24 17:12] LABS: Basophils % 0.7 % (0.1-2.0); Eosinophils # 0.1 K/mm3 (0.0-0.4); Eosinophils % 2.2 % (0.1-12.0); Hematocrit 39.6 % (37.0-47.0); Hemoglobin 12.8 g/dL (12.2-16.2); Lymphocytes # 1.4 K/mm3 (0.7-4.5); Lymphocytes % 28.6 % (10-50); Mean Corpuscular HGB Conc 32.5 g/dL (31.8-35.4); Mean Corpuscular Hemoglobin 30.1 pg (27.0-31.2); Mean Corpuscular Volume 92.9 fl (81-99); Mean Platelet Volume 8.5 fl (7.4-10.4); Monocytes # 0.3 K/mm3 (0.1-1.0); Monocytes % 5.2 % (1.7-9.3); Neutrophils # 3.1 K/mm3 (1.8-7.8); Neutrophils % 63.3 % (37.0-80.0); Platelet Count 194 K/mm3 (142-424); Red Blood Count 4.26 M/mm3 (4.20-5.40); Red Cell Distribution Width 15.4 % (11.5-17.5); White Blood Count 4.9 K/mm3 (4.8-10.8)
[2022-08-24 17:28] LABS: INR 0.94 (0.9-1.1); Prothrombin Time 10.2 seconds (10.1-12.5)
[2022-08-24 17:41] LABS: Chloride 105 mmol/L (98-107); Potassium 4.2 mmoL/L (3.5-5.1); Sodium 141 mmol/L (136-145)
[2022-08-24 17:43] LABS: Blood Urea Nitrogen 20 mg/dl (7-17); Estimated Glomerular Filt Rate 73 ml/min (>60); GFR (African American) 88 ML/MIN (>60)
[2022-08-24 17:44] LABS: Alanine Aminotransferase 47 U/L (12-78); Albumin Level 4.2 g/dl (3.5-5.0); Albumin/Globulin Ratio 1.4 (1.1-1.8); Alkaline Phosphatase 118 U/L (38-126); Anion Gap 14.2 mEq/L (5-15); Aspartate Amino Transferase 42 U/L (14-36); Bilirubin,Total 0.6 mg/dl (0.2-1.3); Calcium 9.1 mg/dl (8.4-10.2); Carbon Dioxide 26 mmol/L (22.0-30.0); Glucose 100 mg/dl (74-100); Total Protein,Serum 7.2 g/dl (6.3-8.2)
== END ==
PROVIDERS: PCP Nurse Practitioner Family; Visit Provider Physician Assistant
DX: K76.0 Fatty (change of) liver, not elsewhere classified (principal)
CPT/HCPCS: 36415; 80053; 85025; 85610; 86677

== ENCOUNTER → 2022-09-05 07:52 | Outpatient (CLI) | payer OTHER, SELFPAY ==
--- NOTE | 2022-09-05 08:09 | FL_ITS ---
FINAL REPORT CLINICAL HISTORY: EPIGASTRIC PAIN, ACID REFLUX & ULCER, NAUSEA, ABD CRAMPING, FT 1:45 COMPARISON: February 23, 2022. FINDINGS: AIR CONTRAST UPPER GI HISTORY: Epigastric pain, food getting stuck in esophagus. TECHNIQUE: The patient ingested thick and thin barium contrast. Effervescent crystals were also administered. Spot and overhead films were performed. A total of 36 images were saved. FINDINGS: The esophagus demonstrates no morphologic abnormalities. No mucosal defects are seen and motility appears normal. The stomach is of normal size, shape and position. There is retained material within the stomach. This is more likely due to lack of nothing by mouth status and less likely due to gastroparesis. The duodenal bulb and sweep appear unremarkable. No episodes of gastroesophageal reflux observed. 13 mm barium tablet passes easily through the esophagus and into the stomach. FLUROSCOPY TIME: 1 minute 45 seconds IMPRESSION: Retained material in the stomach. This is more likely due to lack of nothing by mouth status and less likely due to gastroparesis. Otherwise, unremarkable upper GI series. Reviewed, Interpreted and Dictated by Kiana Anglin MD Transcribed by Heidi Duran PA-C Authenticated and [facility]
== END ==
PROVIDERS: PCP Family Medicine; Visit Provider Physician Assistant
DX: R10.13 Epigastric pain (principal)
CPT/HCPCS: 74246

== ENCOUNTER 2022-09-07 19:09 | Emergency (ER) | payer OTHER, SELFPAY ==
[2022-09-07 19:20] VITALS: BP 103/50; PULSE 90; RESP 20; TEMP 36.7; O2SAT 99; BMI 20.1
[2022-09-07 19:39] LABS: UTC Influenza A Antigen Negative (Negative)
[2022-09-07 19:40] LABS: UTC Influenza B Antigen Negative (Negative)
--- NOTE | 2022-09-07 19:45 | EXP.UTC ---
Discharge Plan Disposition Patient Disposition: Home, Self-Care Condition: Good Prescriptions Prescriptions: New ondansetron 4 mg tablet,disintegrating 4 mg PO Q8H PRN (Reason: nausea and vomiting) Qty: 10 0RF No Action omeprazole 40 mg capsule,delayed release(DR/EC) 40 mg PO DAILY Linzess 72 mcg capsule 72 mcg PO DAILY desvenlafaxine succinate [Pristiq] 100 mg tablet extended release 24 hr 100 mg PO DAILY Qty: 30 1RF benzonatate [benzonatate] 100 mg capsule 100 mg PO TIDP PRN (Reason: Cough) Qty: 30 0RF benzonatate [benzonatate] 100 mg capsule 100 mg PO TIDP PRN (Reason: Cough) Qty: 30 0RF famotidine 40 MG tablet 40 mg PO DAILY albuterol sulfate 8.5 GM HFA aerosol inhaler 2 puffs IH Q6HP PRN (Reason: Shortness Of Breath) 30 Days Qty: 1 5RF ibuprofen [ibuprofen] 600 mg tablet 600 mg PO Q6HP PRN (Reason: Mild Pain) Qty: 30 0RF Referrals Follow up/Referrals: Braden Wheeler MD [Primary Care Provider] - See instructions Clinical Impressions Clinical Impression: Acute viral syndrome Instructions Patient Instructions: DI for Nausea -- Adult Discharge ED Provider: Urvashi Phillips [facility] General Stated complaint: vomiting, body aches Mode of Arrival: Ambulatory Source of Information: Patient Limitations: No Limitations Time Seen by Provider: 09/07/22 19:45 Description of Symptoms (Recalled from Triage Doc. by RN): PATIENT C/O BODY ACHES, CHILLS, HEADACHE, FEVER, NAUSEA AND VOMITING (THIS MORNING) SINCE MONDAY HEENT Symptoms (Recalled from RN notes): Yes Resp Symptoms (Recalled from RN notes): No Skin Symptoms (Recalled from RN notes): No MS Symptoms (Recalled from RN notes): No Functional Status (Recalled from RN notes): WNL History of Present Illness Provider Complaint: Pt states that she has been running a fever at home between 101-102, malaise, body aches, chills, and headache since Monday. She has taken Tylenol for her symptoms. Related Data Home Medications Medication Instructions Recorded Confirmed famotidine 40 mg tablet 40 mg PO DAILY Reflux/Acid reflux 01/14/22 06/02/23 linaclotide 72 mcg capsule 72 mcg PO DAILY 08/13/21 07/15/22 (Linzess) omeprazole 40 mg capsule,delayed 40 mg PO DAILY 08/13/21 07/15/22 release Previous Rx's Medication Instructions Recorded albuterol sulfate 90 mcg/actuation 2 puffs inhalation Q6HP PRN 07/12/21 aerosol inhaler Shortness Of Breath 30 days #1 ea benzonatate 100 mg capsule 100 mg PO TIDP PRN Cough #30 caps 11/25/21 benzonatate 100 mg capsule 100 mg PO TIDP PRN Cough #30 caps 12/28/21 ibuprofen 600 mg tablet 600 mg PO Q6HP PRN Mild Pain #30 03/17/22 tabs desvenlafaxine succinate 100 mg 100 mg PO DAILY #30 tabs 07/15/22 tablet,extended release 24 hr (Pristiq) ondansetron 4 mg disintegrating 4 mg PO Q8H PRN nausea and 09/07/22 tablet vomiting 0 days #10 tabs Allergies Allergy/AdvReac Type Severity Reaction Status Date / Time diphenhydramine Allergy Intermediate I-RASH Verified 07/15/22 09:48 [DIPHENHYDRAMINE] adhesive tape [ADHESIVE TAPE] Allergy Unknown SEIZURES Verified 07/15/22 09:48 Worker's Comp Is this a Worker's Comp case?: No [facility] Disclaimer: The information contained in this section may have been updated after the patient was seen, as this information can be updated by other users. Medical History COPD (chronic obstructive pulmonary disease) Depression Hypertension Major depressive disorder Migraine Mood disorder Surgical History History of section History of cholecystectomy Social History Smoking Status: Current some day smoker tobacco type: cigarettes packs per day: 1 alcohol intake: never substance use type: denies use current occupational status: other Travel in the last 8 we
[2022-09-07 19:58] VITALS: BP 103/50; PULSE 90; RESP 20; TEMP 36.7; O2SAT 99
--- NOTE | 2022-09-07 20:13 | EXP.UTC ---
Discharge Plan Disposition Patient Disposition: Home, Self-Care Condition: Good Prescriptions Prescriptions: New ondansetron 4 mg tablet,disintegrating 4 mg PO Q8H PRN (Reason: nausea and vomiting) Qty: 10 0RF No Action omeprazole 40 mg capsule,delayed release(DR/EC) 40 mg PO DAILY Linzess 72 mcg capsule 72 mcg PO DAILY desvenlafaxine succinate [Pristiq] 100 mg tablet extended release 24 hr 100 mg PO DAILY Qty: 30 1RF benzonatate [benzonatate] 100 mg capsule 100 mg PO TIDP PRN (Reason: Cough) Qty: 30 0RF benzonatate [benzonatate] 100 mg capsule 100 mg PO TIDP PRN (Reason: Cough) Qty: 30 0RF famotidine 40 MG tablet 40 mg PO DAILY albuterol sulfate 8.5 GM HFA aerosol inhaler 2 puffs IH Q6HP PRN (Reason: Shortness Of Breath) 30 Days Qty: 1 5RF ibuprofen [ibuprofen] 600 mg tablet 600 mg PO Q6HP PRN (Reason: Mild Pain) Qty: 30 0RF Referrals Follow up/Referrals: Braden Wheeler MD [Primary Care Provider] - See instructions Clinical Impressions Clinical Impression: Acute viral syndrome Stand Alone Forms Stand Alone Forms: Work/School Release Instructions Patient Instructions: DI for Nausea -- Adult Discharge ED Provider: Urvashi Phillips [facility] General Stated complaint: vomiting, body aches Mode of Arrival: Ambulatory Source of Information: Patient Limitations: No Limitations Time Seen by Provider: 09/07/22 19:45 Description of Symptoms (Recalled from Triage Doc. by RN): PATIENT C/O BODY ACHES, CHILLS, HEADACHE, FEVER, NAUSEA AND VOMITING (THIS MORNING) SINCE MONDAY HEENT Symptoms (Recalled from RN notes): Yes Resp Symptoms (Recalled from RN notes): No Skin Symptoms (Recalled from RN notes): No MS Symptoms (Recalled from RN notes): No Functional Status (Recalled from RN notes): WNL History of Present Illness Provider Complaint: Pt states that she has had fever between 101-102 since Monday, along with chills and a headache. She reports nausea and vomiting today. Related Data Home Medications Medication Instructions Recorded Confirmed famotidine 40 mg tablet 40 mg PO DAILY Reflux/Acid reflux 02/26/21 07/15/22 linaclotide 72 mcg capsule 72 mcg PO DAILY 08/13/21 07/15/22 (Linzess) omeprazole 40 mg capsule,delayed 40 mg PO DAILY 08/13/21 07/15/22 release Previous Rx's Medication Instructions Recorded albuterol sulfate 90 mcg/actuation 2 puffs inhalation Q6HP PRN 07/12/21 aerosol inhaler Shortness Of Breath 30 days #1 ea benzonatate 100 mg capsule 100 mg PO TIDP PRN Cough #30 caps 11/25/21 benzonatate 100 mg capsule 100 mg PO TIDP PRN Cough #30 caps 12/28/21 ibuprofen 600 mg tablet 600 mg PO Q6HP PRN Mild Pain #30 03/17/22 tabs desvenlafaxine succinate 100 mg 100 mg PO DAILY #30 tabs 07/15/22 tablet,extended release 24 hr (Pristiq) ondansetron 4 mg disintegrating 4 mg PO Q8H PRN nausea and 09/07/22 tablet vomiting 0 days #10 tabs Allergies Allergy/AdvReac Type Severity Reaction Status Date / Time diphenhydramine Allergy Intermediate I-RASH Verified 07/15/22 09:48 [DIPHENHYDRAMINE] adhesive tape [ADHESIVE TAPE] Allergy Unknown SEIZURES Verified 07/15/22 09:48 Worker's Comp Is this a Worker's Comp case?: No [facility] Disclaimer: The information contained in this section may have been updated after the patient was seen, as this information can be updated by other users. Medical History COPD (chronic obstructive pulmonary disease) Depression Hypertension Major depressive disorder Migraine Mood disorder Surgical History History of section History of cholecystectomy Social History Smoking Status: Current some day smoker tobacco type: cigarettes packs per day: 1 alcohol intake: never substance use type: denies use current occupational status:
== END 2022-09-07 20:08 | disposition home or self-care (01) ==
PROVIDERS: Emergency Provider Nurse Practitioner Family; PCP Family Medicine
DX: B34.9 Viral infection, unspecified (principal); R11.2 Nausea with vomiting, unspecified; R50.9 Fever, unspecified; R51.9 Headache, unspecified; F17.210 Nicotine dependence, cigarettes, uncomplicated; J44.9 Chronic obstructive pulmonary disease, unspecified; I10 Essential (primary) hypertension; F41.1 Generalized anxiety disorder; F33.9 Major depressive disorder, recurrent, unspecified; F39 Unspecified mood [affective] disorder
CPT/HCPCS: 87804; 99212; 99214; G0463

== ENCOUNTER → 2022-09-20 13:48 | Outpatient (CLI) | payer OTHER, SELFPAY ==
[2022-09-20 13:55] LABS: Adenovirus F 40/41, stool Not Detected (NotDetected); Astrovirus Not Detected (NotDetected); Campylobacter Not Detected (NotDetected); Clostridium Difficile A/B, PCR Not Detected (NotDetected); Cryptosporidium Not Detected (NotDetected); Cyclospora Cayetanesis Not Detected (NotDetected); Entamoeba histolytica Not Detected (NotDetected); Enteroaggregative E coli Not Detected (NotDetected); Enteropathogenic E coli Not Detected (NotDetected); Enterotoxigenic E coli Not Detected (NotDetected); Giardia lamblia Not Detected (NotDetected); Norovirus Not Detected (NotDetected); Plesimonas Shigalloides, PCR Not Detected (NotDetected); Rotavirus A Not Detected (NotDetected); Salmonella, PCR Not Detected (NotDetected); Sapovirus Not Detected (NotDetected); Shiga-like toxin E coli Not Detected (NotDetected); Shigella Enterovasive E coli Not Detected (NotDetected); Vibrio Cholerae Not Detected (NotDetected); Vibrio, PCR Not Detected (NotDetected); Yersinia Entercolitica, PCR Not Detected (NotDetected)
== END ==
PROVIDERS: PCP Family Medicine; Visit Provider Nurse Practitioner Family
DX: R19.7 Diarrhea, unspecified (principal)
CPT/HCPCS: 87507

== ENCOUNTER 2022-10-10 12:42 | Observation (INO) | payer OTHER, SELFPAY ==
[2022-10-10] VITALS (8 sets, daily range): BP systolic 103–129; BP diastolic 44–95; PULSE 51–111; RESP 16–22; TEMP 36.4–36.9; O2SAT 95–99; BMI 20.6; BMI 21.8
--- NOTE | 2022-10-10 12:49 | ECG_ITS ---
APPROVED REPORT Exam: Resting ECG HR:106 bpm ECG Measurements Heart Rate 106 AXES OR 133 P 73 QRSd 82 QRS 71 QT 322 T 68 QTc 384 Conclusion SINUS TACHYCARDIA WITH OCCASIONAL ECTOPIC PREMATURE COMPLEXES POSSIBLE RIGHT VENTRICULAR CONDUCTION DELAY [RSR (QR) IN V1/V2] MODERATE ST DEPRESSION [0.05+ mV ST DEPRESSION] ABNORMAL ECG UNCONFIRMED REPORT Electronically signed by : Ramses Hilton MD 10/11/2022 17:21:38
--- NOTE | 2022-10-10 13:11 | XR_ITS ---
FINAL REPORT TECHNIQUE: Single view chest CLINICAL HISTORY: dyspnea COMPARISON: 07/12/2021 FINDINGS: A single view of the chest was obtained. The heart and mediastinum are within normal limits. The lungs are clear. There is no pneumothorax. Osseous structures are unremarkable. IMPRESSION: No acute cardiopulmonary process. Reviewed, Interpreted and Dictated by Paul Redmond MD Transcribed by Tara Hayward Authenticated and [facility]
--- NOTE | 2022-10-10 13:13 | HMH.EDGENADL ---
Discharge Plan Disposition Patient Disposition: Admitted Prescriptions Prescriptions: New doxycycline hyclate 100 mg capsule 100 mg PO BID 10 Days Qty: 20 0RF albuterol sulfate 90 mcg/actuation HFA aerosol inhaler 4 inh inhalation Q4H PRN (Reason: shortness of breath or wheezing) Qty: 8.5 0RF Rx Instructions: 4 puffs every 4 hours for 48 hours then as needed for shortness of breath or wheezing following ondansetron 4 mg tablet,disintegrating 4 mg PO Q6H PRN (Reason: nausea and vomiting) 5 Days Qty: 20 0RF No Action omeprazole 40 mg capsule,delayed release(DR/EC) 40 mg PO DAILY Linzess 72 mcg capsule 72 mcg PO DAILY desvenlafaxine succinate [Pristiq] 100 mg tablet extended release 24 hr 100 mg PO DAILY Qty: 30 1RF benzonatate [benzonatate] 100 mg capsule 100 mg PO TIDP PRN (Reason: Cough) Qty: 30 0RF benzonatate [benzonatate] 100 mg capsule 100 mg PO TIDP PRN (Reason: Cough) Qty: 30 0RF ondansetron 4 mg tablet,disintegrating 4 mg PO Q8H PRN (Reason: nausea and vomiting) Qty: 10 0RF famotidine 40 MG tablet 40 mg PO DAILY albuterol sulfate 8.5 GM HFA aerosol inhaler 2 puffs IH Q6HP PRN (Reason: Shortness Of Breath) 30 Days Qty: 1 5RF ibuprofen [ibuprofen] 600 mg tablet 600 mg PO Q6HP PRN (Reason: Mild Pain) Qty: 30 0RF Referrals Follow up/Referrals: Braden Wheeler MD [Primary Care Provider] - See instructions Clinical Impressions Clinical Impression: Acute exacerbation of chronic obstructive pulmonary disease, Nausea vomiting and diarrhea Discharge ED Provider: Tuan Gonzalez General Adult HPI <Dannie Terry MD - Last Filed: 10/10/22 14:53> General Chief complaint: Shortness of Breath/Dyspnea Stated complaint: soa/chills Time Seen by Provider: 10/10/22 13:05 Mode of Arrival: EMS Source of Information: Patient Limitations: No Limitations Description of Symptoms (Recalled from ER Triage Doc. by RN): Pt reports chills, body aches, fever, SOA, productive cough that started on monday of last week. History of Present Illness HPI narrative: Patient is a 62-year-old female with a history of COPD presents with multiple complaints. States she had nausea vomiting diarrhea fevers chills cough wheezing shortness of breath since Monday. No significant abdominal pain. Fevers been subjective no objective measurement. She had a DuoNeb in route. Brought in by EMS. Oxygen saturation is normal. Related Data Home Medications Medication Instructions Recorded Confirmed famotidine 40 mg tablet 40 mg PO DAILY Reflux/Acid reflux 02/26/21 09/22/22 linaclotide 72 mcg capsule 72 mcg PO DAILY 08/13/21 09/22/22 (Linzess) omeprazole 40 mg capsule,delayed 40 mg PO DAILY 08/13/21 09/22/22 release Previous Rx's Medication Instructions Recorded albuterol sulfate 90 mcg/actuation 2 puffs inhalation Q6HP PRN 07/12/21 aerosol inhaler Shortness Of Breath 30 days #1 ea benzonatate 100 mg capsule 100 mg PO TIDP PRN Cough #30 caps 11/25/21 benzonatate 100 mg capsule 100 mg PO TIDP PRN Cough #30 caps 12/28/21 ibuprofen 600 mg tablet 600 mg PO Q6HP PRN Mild Pain #30 03/17/22 tabs ondansetron 4 mg disintegrating 4 mg PO Q8H PRN nausea and 09/07/22 tablet vomiting 0 days #10 tabs desvenlafaxine succinate 100 mg 100 mg PO DAILY #30 tabs 09/22/22 tablet,extended release 24 hr (Pristiq) albuterol sulfate 90 mcg/actuation 4 inh inhalation Q4H PRN shortness 10/10/22 aerosol inhaler of breath or wheezing #8.5 grams doxycycline hyclate 100 mg capsule 100 mg PO BID 10 days #20 caps 10/10/22 ondansetron 4 mg disintegrating 4 mg PO Q6H PRN nausea and 10/10/22 tablet vomiting 5 days #20 tabs Allergies Allergy/AdvReac Type Severity Reaction Status Date / Time diphenhydramine Allergy Intermediate I-RASH Verified 09/22/22 13:38 [DIPHENHYDRAMINE] adhesive tape [ADHESIVE TAPE] Allergy Unknown SEIZURES Verified 09/22/22 13:38 [facility] <J MD Jewel Saez L
--- NOTE | 2022-10-10 13:52 | PC.NURSE ---
rounded on pt nothing needed at this time, call light at bs
--- NOTE | 2022-10-10 14:34 | PC.NURSE ---
Blood-work and IVF/medications delayed d/t difficulty obtaining blood and placing an IV. MD aware and states he will attempt an u/s guided IV
[2022-10-10 15:07] LABS: Basophils % 0.1 % (0.1-2.0); Eosinophils # 0.2 K/mm3 (0.0-0.4); Eosinophils % 1.3 % (0.1-12.0); Hematocrit 36.4 % (37.0-47.0); Hemoglobin 12.5 g/dL (12.2-16.2); Lymphocytes # 0.3 K/mm3 (0.7-4.5); Lymphocytes % 1.7 % (10-50); Mean Corpuscular HGB Conc 34.4 g/dL (31.8-35.4); Mean Corpuscular Hemoglobin 31.5 pg (27.0-31.2); Mean Corpuscular Volume 91.6 fl (81-99); Mean Platelet Volume 8.5 fl (7.4-10.4); Monocytes # 0.3 K/mm3 (0.1-1.0); Monocytes % 1.6 % (1.7-9.3); Neutrophils # 15.2 K/mm3 (1.8-7.8); Neutrophils % 95.3 % (37.0-80.0); Platelet Count 177 K/mm3 (142-424); Red Blood Count 3.97 M/mm3 (4.20-5.40); Red Cell Distribution Width 13.7 % (11.5-17.5)
[2022-10-10 15:10] LABS: MANUAL DIFFERENTIAL MANUAL DIFFERENTIAL (MANUAL DIFF)
[2022-10-10 15:14] LABS: Chloride 106 mmol/L (98-107); Sodium 141 mmol/L (136-145)
[2022-10-10 15:17] LABS: Alanine Aminotransferase 35 U/L (12-78); Albumin Level 3.6 g/dl (3.5-5.0); Alkaline Phosphatase 129 U/L (38-126); Anion Gap 14.9 mEq/L (5-15); Aspartate Amino Transferase 35 U/L (14-36); Bilirubin,Total 1.9 mg/dl (0.2-1.3); Blood Urea Nitrogen 23 mg/dl (7-17); Calcium 9.4 mg/dl (8.4-10.2); Carbon Dioxide 23 mmol/L (22.0-30.0); Creatinine Clearance Estimated 45 mL/min (50-200); Estimated Glomerular Filt Rate 46 ml/min (>60); GFR (African American) 55 ML/MIN (>60); Globulin 3.7 g/dL (1.3-3.2); Glucose 78 mg/dl (74-100); Lipase 31 U/L (23-300); Total Protein,Serum 7.3 g/dl (6.3-8.2)
[2022-10-10 15:18] LABS: Magnesium 1.8 mg/dl (1.6-2.3); Phosphorous 2.6 mg/dl (2.5-4.5)
[2022-10-10 15:19] LABS: Hypochromasia 2+; Lymphocytes % 9 % (10-50); Monocytes % 9 % (2-9); Neutrophils % 82 % (42-76); Platelet Estimate Normal; Potassium 2.9 mmoL/L (3.5-5.1); Total Cells Counted 100
[2022-10-10 15:27] LABS: NT Pro Brain Natriuretic Pep. 194 pg/mL (0-125)
--- NOTE | 2022-10-10 15:28 | PC.NURSE ---
notifed dr. gabriel of critical potassium result
[2022-10-10 15:39] LABS: Troponin I < 0.01 ng/ml (0.00-0.034)
--- NOTE | 2022-10-10 15:45 | PC.NURSE ---
Rounded on pt no needs call light at bs
--- NOTE | 2022-10-10 16:12 | EXP.HP ---
History of Present Illness *Admission Date: 10/10/22 *Reason for visit:: Diarrhea, weakness *History of present illness: Ms. Barr is a 62-year-old female with history of mood disorder and COPD. Denies current tobacco use. Denies alcohol use (has alcohol intoxication and her history of diagnoses however). Presents to the ER with 3 days of nausea vomiting and diarrhea. States that she recently saw her PCP where she was diagnosed with a UTI. Started on antibiotics around the same time that her symptoms began however thinks that her symptoms began before she started the antibiotics. States she was having chills and feeling weak along with body aches so she came to the ER for further evaluation. Symptoms began on Monday. Work-up in the ER concerning for dehydration, leukocytosis, LEIGH ANN, and hypokalemia. Received IV fluids and started on empiric antibiotics. Medicine consulted for admission and further management. On arrival to the floor, she is hemodynamically stable. Denies any significant abdominal pain or nausea at this time. Has been unable to give a stool sample since admission (approximately 4 hours). Reports having 6-10 bowel movements a day for the past 2 to 3 days. Denies any shortness of breath or chest pain at this time. [facility] Disclaimer: The information contained in this section may have been updated after the patient was seen, as this information can be updated by other users. 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 current occupational exposures/hazards: No caffeine: Yes Review of Systems Review of Systems Review of systems (narrative): 14 point review of systems performed, pertinent positives and negatives as per HPI Meds Home Medications and Allergies Home Medications Medication Instructions Recorded Confirmed Type famotidine 40 mg tablet 40 mg PO DAILY Reflux/Acid reflux 02/26/21 09/22/22 History albuterol sulfate 90 mcg/actuation 2 puffs inhalation Q6HP PRN 07/12/21 10/10/22 Rx aerosol inhaler Shortness Of Breath 30 days #1 ea linaclotide 72 mcg capsule 72 mcg PO DAILY 08/13/21 09/22/22 History (Linzess) omeprazole 40 mg capsule,delayed 40 mg PO DAILY 08/13/21 09/22/22 History release benzonatate 100 mg capsule 100 mg PO TIDP PRN Cough #30 caps 12/28/21 09/22/22 Rx ibuprofen 600 mg tablet 600 mg PO Q6HP PRN Mild Pain #30 03/17/22 09/22/22 Rx tabs ondansetron 4 mg disintegrating 4 mg PO Q8H PRN nausea and 09/07/22 10/10/22 Rx tablet vomiting 0 days #10 tabs desvenlafaxine succinate 100 mg 100 mg PO DAILY Depression 10/10/22 10/10/22 History tablet,extended release 24 hr (Pristiq) doxycycline hyclate 100 mg capsule 100 mg PO BID 10 days #20 caps 10/10/22 Rx New Prescriptions to Start Prescriptions: doxycycline hyclate Dannie Terry Allergies Allergy/AdvReac Type Severity Reaction Status Date / Time diphenhydramine Allergy Intermediate I-RASH Verified 09/22/22 13:38 [DIPHENHYDRAMINE] adhesive tape [ADHESIVE TAPE] Allergy Unknown SEIZURES Verified 09/22/22 13:38 Exam Data for Last 24 hours Vital signs and Labs for Last 24 Hours: Temp Pulse Resp BP Pulse Ox O2 Del Method 98
--- NOTE | 2022-10-10 16:13 | PC.NURSE ---
notified care management of admission
--- NOTE | 2022-10-10 16:13 | PC.NURSE ---
dr. gabriel spoke with dr. akhtar agreeable for admission
[2022-10-10 16:30] LABS: Coronavirus 19, PCR Not Detected (NotDetected); Influenza A, PCR Not Detected (NotDetected); Influenza B, PCR Not Detected (NotDetected)
[2022-10-10 16:40] LABS: Lactic Acid 1.4 mmol/L (0.7-2.1)
--- NOTE | 2022-10-10 17:09 | PC.NURSE ---
arrived to floor from ED by w/c
[2022-10-10 17:24] LABS: Troponin I < 0.01 ng/ml (0.00-0.034)
[2022-10-10 21:08] LABS: Troponin I < 0.01 ng/ml (0.00-0.034)
[2022-10-11] VITALS: BP 101/48; PULSE 90; RESP 22; TEMP 36.7; O2SAT 96
[2022-10-11 04:00] VITALS: BP 110/57; PULSE 80; RESP 20; TEMP 36.7; O2SAT 93; BMI 20.7
[2022-10-11 06:16] LABS: Chloride 115 mmol/L (98-107); Potassium 3.9 mmoL/L (3.5-5.1); Sodium 144 mmol/L (136-145)
[2022-10-11 06:19] LABS: Alanine Aminotransferase 33 U/L (12-78); Albumin Level 2.9 g/dl (3.5-5.0); Albumin/Globulin Ratio 0.9 (1.1-1.8); Alkaline Phosphatase 103 U/L (38-126); Anion Gap 10.9 mEq/L (5-15); Aspartate Amino Transferase 30 U/L (14-36); Bilirubin,Total 0.6 mg/dl (0.2-1.3); Blood Urea Nitrogen 20 mg/dl (7-17); Calcium 9.3 mg/dl (8.4-10.2); Carbon Dioxide 22 mmol/L (22.0-30.0); Creatinine Clearance Estimated 50 mL/min (50-200); Estimated Glomerular Filt Rate 50 ml/min (>60); GFR (African American) 61 ML/MIN (>60); Globulin 3.3 g/dL (1.3-3.2); Glucose 154 mg/dl (74-100); Magnesium 1.9 mg/dl (1.6-2.3); Total Protein,Serum 6.2 g/dl (6.3-8.2)
[2022-10-11 06:30] LABS: Basophils % 0.1 % (0.1-2.0); Eosinophils % 0.2 % (0.1-12.0); Lymphocytes # 0.4 K/mm3 (0.7-4.5)
[2022-10-11 06:45] LABS: Hematocrit 31.3 % (37.0-47.0); Lymphocytes % 4.1 % (10-50); Mean Corpuscular HGB Conc 34.2 g/dL (31.8-35.4); Mean Corpuscular Hemoglobin 31.8 pg (27.0-31.2); Mean Corpuscular Volume 93.1 fl (81-99); Monocytes # 0.3 K/mm3 (0.1-1.0); Monocytes % 2.3 % (1.7-9.3); Neutrophils % 93.2 % (37.0-80.0); Platelet Count 179 K/mm3 (142-424); Red Blood Count 3.36 M/mm3 (4.20-5.40); Red Cell Distribution Width 13.7 % (11.5-17.5); White Blood Count 10.8 K/mm3 (4.8-10.8)
[2022-10-11 06:46] LABS: Hemoglobin 10.7 g/dL (12.2-16.2); MANUAL DIFFERENTIAL MANUAL DIFFERENTIAL (MANUAL DIFF)
--- NOTE | 2022-10-11 06:49 | PC.NURSE ---
Pt has had no complaints this shift. Pt received sepsis bolus and LR is currently infusing @75ml/hr. Pt ambulates to BR and tolerates well.
[2022-10-11 07:06] LABS: Lymphocytes % 5 % (10-50); Monocytes % 1 % (2-9); Neutrophils % 94 % (42-76); Total Cells Counted 100
[2022-10-11 07:07] VITALS: BP 102/60; PULSE 66; RESP 16; TEMP 36.8; O2SAT 99
[2022-10-11 07:07] LABS: Platelet Estimate Normal; RBC Morphology Normal
--- NOTE | 2022-10-11 07:34 | HMH.PHAINT1 ---
Pharmacy Intervention Comments: Medication history complete, medications verified with fill history and patient. - Norma Wilhelm, PharmD Candidate 2023
[2022-10-11 08:00] VITALS: PULSE 80
--- NOTE | 2022-10-11 09:28 | XR_ITS ---
FINAL REPORT CLINICAL HISTORY: shortness of breath COMPARISON: 10/10/2022 FINDINGS: SINGLE-VIEW CHEST The heart size is normal. The mediastinum is normal. There is new linear opacity in the bases, left greater than right consistent with scar or atelectasis, favor atelectasis. There is no pneumothorax. IMPRESSION: Favor bibasilar atelectasis. Reviewed, Interpreted and Dictated by Paul Redmond MD Transcribed by Lauren Rodriguez Authenticated and [facility]
[2022-10-11 10:52] VITALS: BP 125/69; PULSE 61; RESP 16; TEMP 36.8; O2SAT 98
[2022-10-11 16:00] VITALS: BP 127/82; PULSE 66; RESP 16; TEMP 36.5; O2SAT 100
[2022-10-11 16:24] LABS: Adenovirus F 40/41, stool Not Detected (NotDetected); Astrovirus Not Detected (NotDetected); Campylobacter Not Detected (NotDetected); Clostridium Difficile A/B, PCR Not Detected (NotDetected); Cryptosporidium Not Detected (NotDetected); Cyclospora Cayetanesis Not Detected (NotDetected); Entamoeba histolytica Not Detected (NotDetected); Enteroaggregative E coli Not Detected (NotDetected); Enteropathogenic E coli Not Detected (NotDetected); Enterotoxigenic E coli Not Detected (NotDetected); Giardia lamblia Not Detected (NotDetected); Norovirus Not Detected (NotDetected); Plesimonas Shigalloides, PCR Not Detected (NotDetected); Rotavirus A Not Detected (NotDetected); Salmonella, PCR Not Detected (NotDetected); Sapovirus Not Detected (NotDetected); Shiga-like toxin E coli Not Detected (NotDetected); Shigella Enterovasive E coli Not Detected (NotDetected); Vibrio Cholerae Not Detected (NotDetected); Vibrio, PCR Not Detected (NotDetected); Yersinia Entercolitica, PCR Not Detected (NotDetected)
[2022-10-11 16:25] LABS: Appearance,Urine CLEAR (Clear); Bilirubin,Urine Negative (Negative); Blood, Urine TRACE-I (Negative); Color,Urine YELLOW (Yellow); Glucose,Urine (UA) Negative (Negative); Ketones,Urine Negative (Negative); Leukocyte Esterase,Urine 2+ (Negative); Microscopic, Urine URINE MICROSCOPIC (MICROSCOPIC); Nitrate,Urine Negative (Negative); PH,Urine 6.5 (5.0-8.5); Protein,Urine Negative (Negative); RBC,Urine Occasional #/hpf (0-3); Squamous Epithelial Cell,Urine Occasional #/hpf (0-5); Urobilinogen,Urine 0.2 EU/dl (0.2)
[2022-10-11 16:26] LABS: Bacteria,Urine Trace /lpf
--- NOTE | 2022-10-12 14:49 | CARE MANAGER ---
Contacted patient related to hospital discharge. She picked up her medications but is currently in the doctor's office because she is still not feeling well. She denies questions or concerns. VINCENT Guzman
--- NOTE | 2022-10-13 05:39 | EXP.DC.SUM ---
General Admission date:: 10/10/22 Discharge date: 10/11/22 HPI HPI HPI: Forwarded from Admission H&P: Ms. Barr is a 62-year-old female with history of mood disorder and COPD. Denies current tobacco use. Denies alcohol use (has alcohol intoxication and her history of diagnoses however). Presents to the ER with 3 days of nausea vomiting and diarrhea. States that she recently saw her PCP where she was diagnosed with a UTI. Started on antibiotics around the same time that her symptoms began however thinks that her symptoms began before she started the antibiotics. States she was having chills and feeling weak along with body aches so she came to the ER for further evaluation. Symptoms began on Monday. Work-up in the ER concerning for dehydration, leukocytosis, LEIGH ANN, and hypokalemia. Received IV fluids and started on empiric antibiotics. Medicine consulted for admission and further management. On arrival to the floor, she is hemodynamically stable. Denies any significant abdominal pain or nausea at this time. Has been unable to give a stool sample since admission (approximately 4 hours). Reports having 6-10 bowel movements a day for the past 2 to 3 days. Denies any shortness of breath or chest pain at this time. Hospital Course Hospital Course Hospital Course: The patient was given IV fluids and Rocephin. The patient didn't have any more episodes of diarrhea while in the hospital. GI panel was negative. Creatinine level decreased from 1.2 to 1.1 and leukocytosis decreased from 16k wbcs to 10k by the day of discharge. UA was indicative of UTI; she was discharged with a 7 day course of Augmentin. Her potassium was replaced. She is to follow up with her PCP in 1 week. Discharge orders and prescription of Augmentin were handwritten during EMR downtime. Exam Data for Last 24 hours Vital signs and Labs for Last 24 Hours: Temp Pulse Resp BP Pulse Ox O2 Del Method 97.7 F 66 16 127/82 100 Room Air 10/11/22 16:00 10/11/22 16:00 10/11/22 16:00 10/11/22 16:00 10/11/22 16:00 10/11/22 16:00 I & O for Last 24 hours: Intake & Output 10/10/22 10/11/22 10/12/22 10/13/22 23:59 23:59 23:59 23:59 Intake Total 1100 / 1100 600 / 600 Output Total 0 / 500 1100 / 1100 Balance 1100 / 600 -500 / -500 Weight 61.292 kg 58.649 kg Microbiology Reports for the Last 24 Hours: Microbiology 10/10/22 16:20 Blood Blood Culture - Preliminary NO GROWTH AFTER 48 HOURS 10/10/22 15:02 Blood Blood Culture - Preliminary NO GROWTH AFTER 48 HOURS 10/11/22 12:00 Urine,Clean Catch Urine Culture - Preliminary NO GROWTH AFTER 24 HOURS Constitutional Constitutional: no acute distress *Routine HEENT Exam Head: Present normocephalic Eye: Present EOMI and PERRL ENT: Present mucous membranes moist *Routine Neck Exam Neck: Present supple; Absent lymphadenopathy *Routine Respiratory Exam Respiratory: Present CTA bilaterally *Routine Cardiovascular Exam Cardiovascular: Present RRR *Routine Abdominal Exam Abdominal: Present soft and normoactive bowel sounds; Absent tenderness *Routine Extremities Exam Extremities: Absent cyanosis, clubbing or edema *Routine Skin Exam Skin: Present warm; Absent rash *Routine Neurological Exam Neurological: Present alert and oriented X3 Results Data Completed and Pending Completed studies during hospitalization [Text1]: CBC with 16K wbcs decreased to 10.8K by day of discharge. K increased from 2.9 to 3.9 by day of discharge. Cr decreased from 1.2 to 1.1 by day of discharge. UA on 10/11 revealed 5-10 wbcs and 2+ leukocyte esterase, trace bacteria GI panel was negative CXR with bibasilar atelectasis Labs on day of discharge: Preliminary micro results at discharge 10/10/22 16:20 Blood Culture - Preliminary Blood NO GROWTH AFTER 48 HOURS 10/10/22 15:02 Blood Culture - Preliminary Bl
== END 2022-10-11 16:45 | disposition home or self-care (01) ==
LOC: ER 16:05 → 2ND 16:39
PROVIDERS: Student in an Organized Health Care Education/Training Program; Admitting Provider Internal Medicine Adolescent Medicine; Emergency Provider Emergency Medicine; PCP Family Medicine; Visit Provider Internal Medicine Adolescent Medicine
DX: K52.9 Noninfective gastroenteritis and colitis, unspecified (principal); J44.1 Chronic obstructive pulmonary disease with (acute) exacerbation; I10 Essential (primary) hypertension; F32.9 Major depressive disorder, single episode, unspecified; Z87.891 Personal history of nicotine dependence; N39.0 Urinary tract infection, site not specified
CPT/HCPCS: G0379; 36415; 71045; 80053; 81001; 83605; 83690; 83735; 83880; 84100; 84484; 85007; 85025; 87040; 87086; 87507; 87636; 93005; 99285; G0378; J0696; J2405

== ENCOUNTER → 2022-10-18 12:28 | Outpatient (CLI) | payer OTHER, SELFPAY ==
--- NOTE | 2022-10-18 12:31 | XR_ITS ---
FINAL REPORT CLINICAL HISTORY: BRONCHIAL INFECTION COMPARISON: 10/11/2022 FINDINGS: Two views of the chest were obtained. The heart size and pulmonary vascularity are within normal limits. The mediastinum is normal. No acute pulmonary abnormality is identified. There is no pneumothorax. The bony thorax is intact. IMPRESSION: No active cardiopulmonary disease. Reviewed, Interpreted and Dictated by Jay Owen III, MD Transcribed by Lauren Rodriguez Authenticated and [facility]
== END ==
PROVIDERS: PCP Family Medicine; Visit Provider Family Medicine
DX: J40 Bronchitis, not specified as acute or chronic (principal)
CPT/HCPCS: 71046

== ENCOUNTER → 2022-10-31 08:32 | Outpatient (CLI) | payer OTHER, SELFPAY ==
--- NOTE | 2022-10-31 08:36 | FL_ITS ---
FINAL REPORT CLINICAL HISTORY: . vomiting, diarrhea DAP:3189.89 5:38 FINDINGS: UPPER GI WITH SBFT HISTORY: Acute epigastric pain. Vomiting. PROCEDURE: The patient ingested barium. Effervescent crystals were also administered. 36 fluoroscopic and overhead films were obtained. Additional barium was administered for a SBFT. Fluoro time: 5 minutes 38 seconds. Total DAP: 3189.89 uGycm2. FINDINGS: UGI: The esophagus is normal. There is a small sliding-type hiatal hernia. There is no gastroesophageal reflux. Mild esophageal dysmotility was demonstrated during the exam. Retained debris is identified in the stomach. The duodenal bulb is normal. SBFT: The joinery setter out film is normal. There is no evidence of obstruction. The mucosal fold pattern is normal. The terminal ilium is normal. IMPRESSION: Small sliding-type hiatal hernia. Retained debris within the stomach. Consider gastroparesis. Films reviewed , interpreted and dictated by Dr. Redmond. Transcribed by Salvador Spence PA-C. Reviewed, Interpreted and Dictated by Paul Redmond MD Transcribed by ESTUARDO Swartz Authenticated and [facility]
== END ==
PROVIDERS: PCP Family Medicine; Visit Provider Family Medicine
DX: R11.10 Vomiting, unspecified (principal); R19.7 Diarrhea, unspecified; R06.02 Shortness of breath; Z68.23 Body mass index [BMI] 23.0-23.9, adult
CPT/HCPCS: 74246; 74248

== ENCOUNTER → 2023-01-12 13:47 | Outpatient (POV) | payer OTHER, SELFPAY ==
[2023-01-12 14:00] VITALS: BP 121/78; PULSE 71; RESP 18; O2SAT 96; BMI 20.1
--- NOTE | 2023-01-12 14:34 | EXP.PAIN.OV ---
HPI Data of Consult Patient: new to practice Consult date: 01/12/23 Requesting Physician: Shantelle Pollard APRN Primary Care Provider: Braden Wheeler MD Consult Narrative Reason for consult: Left hand pain History of present illness: Ms. Barr is a 62 year old female who presents today as a new patient. Today she rates her pain a 6 out of 10. Patient states her pain is all in her left hand related to a fracture that occurred in April. 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 Patient did ultimately fracture which required surgery and had a rob and plate placed. Patient states she is continue to have pain at this site since. She does describe it as a constant achy sensation with activity. Patient states that when she is able to rest it does improve however with her job she relies on using her hands. 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 Patient is in physical therapy still however is very limited and has only minimal range of motion. Patient is interested in any help we may be able to provide. Patient has tried [id number] Tylenol and ibuprofen along with heat and ice and topicals with no additional relief. Patient has been prescribed gabapentin 100 mg 3 times a day from an outside provider. Her Arthur has been reviewed and is appropriate. CC: Shantelle Pollard APRN [facility] Disclaimer: The information contained in this section may have been updated after the patient was seen, as this information can be updated by other users. 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 current occupational exposures/hazards: No caffeine: Yes Review of Systems Review of Systems Review of systems:: pertinent systems reviewed and negative unless documented below Review of systems (narrative): Review of Systems: General: No recent weight changes, no fever, no sleep disturbances Respiratory: No cough, no shortness of air, no recurring pulmonary infections Cardiovascular/peripheral vascular: No chest pain, no palpitations, no edema, no shortness of breath Gastrointestinal: No new onset incontinence, normal bowel movements reported Genitourinary: No new onset incontinence Musculoskeletal: Left hand pain Psychiatric: [Normal mood/affect] Neurological: [Denies weakness in extremities], [denies balance issues] Meds Home Medications and Allergies Home Medications Medication Instructions Recorded Confirmed Type ibuprofen 600 mg tablet 600 mg PO Q6HP PRN Mild Pain #30 03/17/22 10/11/22 Rx tabs ondansetron 4 mg disintegrating 4 mg PO Q8H PRN nausea and 09/07/22 10/10/22 Rx tablet vomiting 0 days #10 tabs desvenlafaxine succinate 100 mg 100 mg PO DAILY Mood 10/10/22 10/10/22 History tablet,extended release 24 hr (Pristiq) albuterol sulfate 90 mcg/actuation 2 puff inhalation Q6HP PRN 10/11/22 10/11/22 History aerosol inhaler Shortness of Breath / Wheezing doxycycline hyclate 100 mg capsule 100 mg PO BID Infection 10/11/22 10/11/22 History sucralfate 1 gram tablet 1 g PO QID Acid Reflux 10/11/22 10/11/22 History New Prescriptions to Start
== END ==
PROVIDERS: PCP Family Medicine; Visit Provider Nurse Practitioner Family
DX: M79.642 Pain in left hand (principal)
CPT/HCPCS: 99202; G0463

== ENCOUNTER 2023-04-20 14:09 | Emergency (ER) | payer OTHER, SELFPAY ==
[2023-04-20 14:20] VITALS: BP 138/74; PULSE 86; RESP 20; TEMP 36.8; O2SAT 96; BMI 20.8
--- NOTE | 2023-04-20 14:43 | ED_ITS ---
Discharge Plan Disposition Patient Disposition: Home, Self-Care Condition: Good Prescriptions Prescriptions: No Action ondansetron 4 mg tablet,disintegrating 4 mg PO Q8H PRN (Reason: nausea and vomiting) Qty: 10 0RF ibuprofen [ibuprofen] 600 mg tablet 600 mg PO Q6HP PRN (Reason: Mild Pain) Qty: 30 0RF desvenlafaxine succinate [Pristiq] 100 mg tablet extended release 24 hr 100 mg PO DAILY doxycycline hyclate 100 mg capsule 100 mg PO BID sucralfate 1 gram tablet 1 g PO QID albuterol sulfate 90 mcg/actuation HFA aerosol inhaler 2 puff INHALATION Q6HP PRN (Reason: Shortness of Breath / Wheezing ) Referrals Follow up/Referrals: Braden Wheeler MD [Primary Care Provider] - See instructions Activity Restrictions/Add. Instructions Additional Instructions/Restrictions: *Monitor Temp, Over the counter Motrin or Tylenol as directed/as needed Tylenol every 4 hours and Motrin every 6 hours (as long as your family doctor has told you that you can take it) for fever or pain. and straight to ER if unable to lower temp less than 101.0 after medication given *Warm salt water gargles may help to soothe the throat *Throat Lozenges? *Warm fluids like tea with honey may help to soothe the throat? *Sleep elevated *Humidifier/Vaporizer *If you did not take Penicillin shot or was unable to, start taking antibiotic immediately and make sure that you take it for the FULL length of time although you should start to feel better in 24-48 hours *change toothbrush and toothpaste 24-48 hours after starting to take antibiotics so you do not reinfect yourself Monitor Temp. Tylenol and/or Ibuprofen as needed. ER if fever is no less than 101 despite alternating Tylenol and Ibuprofen * Encourage fluids, water, Gatorade, powerade, pedialyte if infant/toddler/or child *Cold fluids, popsicles and ice cream may feel good on his throat Follow up IMMEDIATELY for new or worsening symptoms or no Noticeable improvement over the next 48-72 hours. 911 for difficulty breathing or swallowing You were tested for today for Upper Respiratory Panel with COVID19 your test result should be back in the next 24hours, you may check your results on the [facility] My Health Portal Clinical Impressions Clinical Impression: Strep throat Stand Alone Forms Stand Alone Forms: Work/School Release Instructions Patient Instructions: DI for Strep Throat, Strep Throat Discharge ED Provider: Abena Daily [facility] [place] HPI General Stated complaint: sore throat, body aches, headache Mode of Arrival: Ambulatory Source of Information: Patient Limitations: No Limitations Time Seen by Provider: 04/20/23 14:43 Description of Symptoms (Recalled from Triage Doc. by RN): PATIENT C/O SORE TH ROAT, NAUSEA AND BODY ACHES SINCE YESTERDAY. RECENTLY EXPOSED TO COVID HEENT Symptoms (Recalled from RN notes): Yes Resp Symptoms (Recalled from RN notes): No Skin Symptoms (Recalled from RN notes): No MS Symptoms (Recalled from RN notes): No Functional Status (Recalled from RN notes): WNL History of Present Illness Provider Complaint: Patient states that she started feeling bad yesterday with body aches, chills and sore throat with some nausea and occasional vomiting States that grandchild has had flu and COVID recently and COVID is going around at work she came in wanting to get tested worried she may have it now Related Data Home Medications Medication Instructions Recorded Confirmed desvenlafaxine succinate 100 mg 100 mg PO DAILY Mood 10/10/22 01/13/23 tablet,extended release 24 hr (Pristiq) albuterol sulfate 90 mcg/actuation 2 puff inhalation Q6HP PRN 10/11/22 01/13/23 aerosol inhaler Shortness of Breath / Wheezing doxycycline hyclate 100 mg capsule 100 mg PO BID Infection 10/11/22 01/13/23 sucralfate 1 gram tablet 1 g PO QID Acid Reflux 10/11/22 01/13/23 Previous Rx's Medication Instructions Recorded ibuprofen 600 mg tablet 600 mg PO Q6HP PRN Mild Pain #30 03/17/22 tabs ondansetron 4 mg disintegrating 4 mg PO Q8H PRN nausea and 09/07/22 tablet vomiting 0 days #10 tabs Allergies Allergy/AdvReac Type Severity Reaction Status Date / Time diphenhydramine Allergy Intermediate I-RASH Verified 09/22/22 13:38 [DIPHENHYDRAMINE] adhesive tape [ADHESIVE TAPE] Allergy Unknown SEIZURES Verified 09/22/22 13:38 Worker's Comp Is this a Worker's Comp case?: No [facility] Disclaimer: The information contained in this section may have been updated after the patient was seen, as this information can be updated by other users. 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 current occupational exposures/hazards: No caffeine: Yes ROS Obtained: Yes All systems reviewed & no additional complaints except as documented and Yes Systems reviewed as appropriate & no additional complaints except as documented Constitutional Constitutional: Reports system reviewed and no additional complaints, except as documented, Reports as per HPI, Reports body ache, Reports chills and Reports fever(s) ENT Ears, Nose, Mouth, and Throat: Reports system reviewed and no additional compla ints, except as documented, Reports as per HPI and Reports sore throat Cardiovascular Cardiovascular: Reports system reviewed and no additional complaints, except as documented and Reports as per HPI Respiratory Respiratory: Reports system reviewed and no additional complaints, except as documented and Reports as per HPI Gastrointestinal Gastrointestingal: Reports system reviewed and no additional complaints, except as documented, as per HPI and nausea; Denies abdominal pain, cramping, diarrhea or vomiting Physical Exam General General appearance: alert and in no apparent distress ENT ENT exam: Present mucous membranes moist Expanded ENT Exam Nose exam: Absent sinus tenderness Throat exam: Present tonsillar erythema Respiratory Respiratory exam: Present normal lung sounds bilaterally; Absent respiratory distress or wheezes Cardiovascular Cardiovascular exam: Present regular rate, normal rhythm and normal heart sounds Abdominal Exam Abdominal exam: Present soft and normal bowel sounds; Absent distention or tenderness Neurological Exam Neurological exam: Present alert, oriented X3 and normal gait Medical Decision Making Arthur Inquiry Pt receiving controlled substance: No Arthur was queried for this patient: No Vital Signs: 04/20/23 14:20 Temperature 98.2 F Temperature Source Oral Pulse Rate [Left Brachial] 86 Respiratory Rate 20 Blood Pressure [Left Arm] 138/74 Blood Pressure Mean [Left Arm] 95 Blood Pressure Source [Left Arm] Automatic Cuff Blood Pressure Position [Left Arm] Sitting 02 Sat by Pulse Oximetry 96 Oxygen Delivery Method Room Air Lab Data Lab results reviewed: Yes I reviewed the patient's lab results. Medical Decision Narrative: Patient states that she has taken amoxicillin in the past without complications or reactions
[2023-04-20 14:50] LABS: UTC Strep Screen (Rapid) Positive (Negative)
[2023-04-20 14:51] LABS: UTC Influenza A Antigen Negative (Negative); UTC Influenza B Antigen Negative (Negative)
[2023-04-20 14:57] VITALS: BP 138/74; PULSE 86; RESP 20; TEMP 36.8; O2SAT 96
== END 2023-04-20 15:03 | disposition home or self-care (01) ==
PROVIDERS: Emergency Provider Nurse Practitioner; PCP Family Medicine
DX: U07.1 COVID-19 (principal); J02.0 Streptococcal pharyngitis; R07.0 Pain in throat; R50.9 Fever, unspecified; R11.2 Nausea with vomiting, unspecified; M79.18 Myalgia, other site; F17.210 Nicotine dependence, cigarettes, uncomplicated; J44.9 Chronic obstructive pulmonary disease, unspecified; I10 Essential (primary) hypertension
CPT/HCPCS: 87635; 87804; 87880; 99212; 99214; G0463

== ENCOUNTER 2023-05-16 13:00 | Outpatient (RCR) | payer OTHER, SELFPAY | END 2023-05-16 13:05 | disposition home or self-care (01) | LOC: OT 13:00 | PROVIDERS: Visit Provider Neuromusculoskeletal Medicine, Sports Medicine | DX: M25.532 Pain in left wrist (principal); G90.512 Complex regional pain syndrome I of left upper limb | CPT/HCPCS: 97010; 97014; 97035; 97110; 97140; 97164; 97165; 97530; G0283 ==

== ENCOUNTER 2023-06-13 10:25 | Outpatient (CLI) | payer OTHER, SELFPAY ==
--- NOTE | 2023-06-13 10:28 | MM_ITS ---
PROCEDURE INFORMATION: Exam: MG Bilateral Screening 3D Mammography Exam date and time: 06/13/2023 10:27 AM Age: 62 years old Clinical indication: Screening examination TECHNIQUE: Imaging protocol: Bilateral Screening tomosynthesis and 2D mammography including computer-aided detection (CAD) when performed. COMPARISON: 1. MG DMSB DIG MAMM-SCREEN LUZ 06/26/2013 10:55 AM 2. MG DMSB DIGITAL MAMM-SCREEN BILATERAL 08/03/2011 1:15 PM FINDINGS: MAMMOGRAPHY: Breast composition: There are scattered areas of fibroglandular density. Mass: None. Architectural distortion: None. Calcifications: No suspicious calcifications. Asymmetric density: None. Skin thickening: None. Axillary adenopathy: None. IMPRESSION: No mammographic evidence of malignancy. Annual screening is recommended unless otherwise clinically indicated. ASSESSMENT: BI-RADS Category 1: Negative
== END 2023-06-13 23:59 | disposition home or self-care (01) ==
LOC: RAD 10:26
PROVIDERS: PCP Family Medicine; Visit Provider Nurse Practitioner
DX: Z12.31 Encounter for screening mammogram for malignant neoplasm of breast (principal)
CPT/HCPCS: 77063; 77067

== ENCOUNTER 2023-07-03 14:46 | Outpatient (CLI) | payer OTHER, SELFPAY ==
--- NOTE | 2023-07-03 14:52 | XR_ITS ---
FINAL REPORT CLINICAL HISTORY: LT HAND PAIN fall monday; c/o pain around 1st mcp/1st digit COMPARISON: None FINDINGS: 3 images of the left hand were obtained. There is a sideplate and screws bridging a healed fracture of the distal left radius. There is no evidence of fracture or dislocation. Mild degenerative changes present. Note is made of a short fifth metacarpal. There is no soft tissue abnormality identified. IMPRESSION: No acute bony abnormality. Side plate and screws bridge a healed fracture of the distal left radius. Reviewed, Interpreted and Dictated by Paul Redmond MD Transcribed by Jennifer Tripp Authenticated and [facility]
== END 2023-07-03 23:59 | disposition home or self-care (01) ==
LOC: RAD 14:47
PROVIDERS: PCP Family Medicine; Visit Provider Nurse Practitioner
DX: M79.642 Pain in left hand (principal)
CPT/HCPCS: 73130

== ENCOUNTER 2023-07-21 16:11 | Emergency (ER) | payer OTHER, SELFPAY ==
[2023-07-21 16:30] VITALS: BP 119/53; PULSE 108; RESP 20; TEMP 36.8; O2SAT 98; BMI 19.8
--- NOTE | 2023-07-21 16:37 | EXP.UTC ---
Discharge Plan Disposition Patient Disposition: Home, Self-Care Condition: Good Prescriptions Prescriptions: New levofloxacin 500 mg tablet 500 mg PO DAILY Qty: 7 0RF promethazine 25 mg tablet 25 mg PO TID PRN (Reason: nausea and vomiting) Qty: 10 0RF No Action ondansetron 4 mg tablet,disintegrating 4 mg PO Q8H PRN (Reason: nausea and vomiting) Qty: 10 0RF ibuprofen [ibuprofen] 600 mg tablet 600 mg PO Q6HP PRN (Reason: Mild Pain) Qty: 30 0RF desvenlafaxine succinate [Pristiq] 100 mg tablet extended release 24 hr 100 mg PO DAILY doxycycline hyclate 100 mg capsule 100 mg PO BID sucralfate 1 gram tablet 1 g PO QID albuterol sulfate 90 mcg/actuation HFA aerosol inhaler 2 puff INHALATION Q6HP PRN (Reason: Shortness of Breath / Wheezing ) amoxicillin 500 mg capsule 500 mg PO BID 10 Days Qty: 20 0RF Referrals Follow up/Referrals: Braden Wheeler MD [Primary Care Provider] - See instructions Activity Restrictions/Add. Instructions Additional Instructions/Restrictions: Take meds as directed increase fluids Urine culture should be back Monday or Monday to make sure you are on the right medicine F/U with Dr Wheeler re: weight loss Clinical Impressions Clinical Impression: UTI (urinary tract infection) Instructions Patient Instructions: DI for Urinary Tract Infection (UTI) Discharge ED Provider: Lucy Saha [facility] [place] HPI General Stated complaint: body aches, vomiting, diarrhea Time Seen by Provider: 07/21/23 16:37 History of Present Illness Provider Complaint: Patient seen by PCP 4-5 days ago with pelvic pain and pressure. Diagnosed with UTI. Given Macrobid, Pyridium, Zofran. Started vomiting 3 days ago. Has had vomiting, body aches, chills, headache since. Feels like she is getting worse instead of better. Onset (ago): day(s) (4) Location: abdomen Relieving factors: none Exacerbating factors: none Associated symptoms: fever/chills, headaches, loss of appetite, malaise and nausea/vomiting Treatments prior to arrival: other (macrobid, pyridium, zofran) Related Data Home Medications Medication Instructions Recorded Confirmed desvenlafaxine succinate 100 mg 100 mg PO DAILY Mood 10/10/22 01/13/23 tablet,extended release 24 hr (Pristiq) albuterol sulfate 90 mcg/actuation 2 puff inhalation Q6HP PRN 10/11/22 01/13/23 aerosol inhaler Shortness of Breath / Wheezing doxycycline hyclate 100 mg capsule 100 mg PO BID Infection 10/11/22 01/13/23 sucralfate 1 gram tablet 1 g PO QID Acid Reflux 10/11/22 01/13/23 Previous Rx's Medication Instructions Recorded ibuprofen 600 mg tablet 600 mg PO Q6HP PRN Mild Pain #30 03/17/22 tabs ondansetron 4 mg disintegrating 4 mg PO Q8H PRN nausea and 09/07/22 tablet vomiting 0 days #10 tabs amoxicillin 500 mg capsule 500 mg PO BID 10 days #20 caps 04/20/23 levofloxacin 500 mg tablet 500 mg PO DAILY #7 tabs 07/21/23 promethazine 25 mg tablet 25 mg PO TID PRN nausea and 07/21/23 vomiting #10 tabs Allergies Allergy/AdvReac Type Severity Reaction Status Date / Time diphenhydramine Allergy Intermediate I-RASH Verified 09/22/22 13:38 [DIPHENHYDRAMINE] adhesive tape [ADHESIVE TAPE] Allergy Unknown SEIZURES Verified 09/22/22 13:38 [facility] Disclaimer: The information contained in this section may have been updated after the patient was seen, as this information can be updated by other users. 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 current occupational exposures/hazards: No caffeine: Yes ROS Obtained: Yes All systems reviewed & no additional complaints except as documented Constitutional Constitutional: Reports headache(s) ENT Ears, Nose, Mouth, and Throat: Reports headache(s) Gastrointestinal Gastrointestingal: Reports nausea and vomiting Genitourinary Female Genitourinary: Reports dysuria Neurologic Neurologic: Reports headache(s) Physical Exam General General appearance: alert and in no apparent distress ENT ENT exam: Present mucous membranes moist Expanded ENT Exam Nose exam: Absent sinus tenderness Throat exam: Present tonsillar erythema Respiratory Respiratory exam: Present normal lung sounds bilaterally; Absent respiratory distress or wheezes Cardiovascular Cardiovascular exam: Present regular rate, normal rhythm and normal heart sounds Abdominal Exam Abdominal exam: Present soft, tenderness and normal bowel sounds; Absent distention Abdominal tenderness: Present suprapubic Neurological Exam Neurological exam: Present alert, oriented X3 and normal gait Medical Decision Making Medical Records Medical records reviewed: Yes I reviewed the patient's medical records. Arthur Inquiry Pt receiving controlled substance: No Lab Data Lab results reviewed: Yes I reviewed the patient's lab results.
[2023-07-21 17:15] LABS: Apearance,Urine Cloudy (Clear); Color,Urine Yellow (Yellow); PH,Urine 5.5 (5.0-8.5)
[2023-07-21 17:16] LABS: Bilirubin,Urine Negative (Negative); Blood, Urine 2+ (Negative); Glucose,Urine (UA) Negative (Negative); Ketones,Urine Negative (Negative); Protein,Urine 1+ (Negative)
[2023-07-21 17:17] LABS: UTC Leukocyte Esterase,Urine 3+ (Negative); UTC Nitrate,Urine Positive (Negative); Urobilinogen,Urine 1 EU/dl (0.2)
[2023-07-21 17:19] VITALS: BP 119/53; PULSE 108; RESP 20; TEMP 36.8; O2SAT 98
== END 2023-07-21 17:22 | disposition home or self-care (01) ==
PROVIDERS: Emergency Provider Physician Assistant; PCP Family Medicine
DX: N39.0 Urinary tract infection, site not specified (principal); B96.89 Other specified bacterial agents as the cause of diseases classified elsewhere; R11.2 Nausea with vomiting, unspecified; R51.9 Headache, unspecified; R50.9 Fever, unspecified
CPT/HCPCS: 81003; 87086; 99212; 99214; G0463

== ENCOUNTER 2023-09-15 11:46 | Emergency (ER) | payer OTHER, SELFPAY ==
[2023-09-15 11:55] VITALS: BP 119/68; PULSE 92; RESP 18; TEMP 36.5; O2SAT 99; BMI 20.2
--- NOTE | 2023-09-15 12:58 | ED_ITS ---
Discharge Plan Disposition Patient Disposition: Home, Self-Care Condition: Good Prescriptions Prescriptions: New amoxicillin 875 mg tablet 875 mg PO Q12H 10 Days Qty: 20 0RF No Action escitalopram oxalate 10 mg tablet 10 mg PO DAILY cholecalciferol (vitamin D3) 1,250 mcg (50,000 unit) capsule 1,250 mcg PO WEEKLY Referrals Follow up/Referrals: Braden Wheeler MD [Primary Care Provider] - See instructions Activity Restrictions/Add. Instructions Additional Instructions/Restrictions: If symptoms persist or worsen, follow up with PCP or return to the clinic. Clinical Impressions Clinical Impression: Upper respiratory tract infection Qualifiers: URI type: unspecified URI Qualified Code(s): J06.9 - Acute upper respiratory infection, unspecified Instructions Patient Instructions: Acute Bronchitis, DI for Cough -- Adult Print Language Print Language: Setswana Discharge ED Provider: Urvashi Phillips [facility] General Stated complaint: cough, congestion, fever Mode of Arrival: Ambulatory Source of Information: Patient Limitations: No Limitations Time Seen by Provider: 09/15/23 12:57 Description of Symptoms (Recalled from Triage Doc. by RN): PATIENT C/O COUGH AND FEVER X 2 WEEKS HEENT Symptoms (Recalled from RN notes): No Resp Symptoms (Recalled from RN notes): Yes Skin Symptoms (Recalled from RN notes): No MS Symptoms (Recalled from RN notes): No Functional Status (Recalled from RN notes): WNL History of Present Illness Provider Complaint: Pt reports that she has been coughing for the past 2 weeks. She reports that the drainage has changed to a yellow-green color. She reports taking Mucinex for her symptoms. Related Data Home Medications ?Medication ?Instructions ?Recorded ?Confirmed cholecalciferol (vitamin D3) 1,250 1,250 mcg PO WEEKLY 09/15/23 09/15/23 mcg (50,000 unit) capsule escitalopram oxalate 10 mg tablet 10 mg PO DAILY 09/15/23 09/15/23 Previous Rx's ?Medication ?Instructions ?Recorded amoxicillin 875 mg tablet 875 mg PO Q12H 10 days #20 tabs 09/15/23 Allergies Allergy/AdvReac Type Severity Reaction Status Date / Time diphenhydramine Allergy Intermediate I-RASH Verified 09/22/22 13:38 [DIPHENHYDRAMINE] adhesive tape [ADHESIVE TAPE] Allergy Unknown SEIZURES Verified 09/22/22 13:38 Worker's Comp Is this a Worker's Comp case?: No [facility] Disclaimer: The information contained in this section may have been updated after the patient was seen, as this information can be updated by other users. 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 current occupational exposures/hazards: No caffeine: Yes ROS Obtained: Yes All systems reviewed & no additional complaints except as documented Constitutional Constitutional: Reports system reviewed and no additional complaints, except as documented Eyes Eyes: Reports system reviewed and no additional complaints, except as documented ENT Ears, Nose, Mouth, and Throat: Reports system reviewed and no additional complaints, except as documented and Reports nasal discharge Cardiovascular Cardiovascular: Reports system reviewed and no additional complaints, except as documented Respiratory Respiratory: Reports system reviewed and no additional complaints, except as documented, Reports change in phlegm color, Reports cough and Reports cough with sputum production Gastrointestinal Gastrointestingal: Reports system reviewed and no additional complaints, except as documented Genitourinary Female Genitourinary: Reports system reviewed and no additional complaints, except as documented Integumentary/Breasts Skin/Breast: Reports system reviewed and no additional complaints, except as documented Neurologic Neurologic: Reports system reviewed and no additional complaints, except as documented Endocrine Endocrine: Reports system reviewed and no additional complaints, except as documented Hematologic/Lymphatic Henatologic/Lymphatic: Reports system reviewed and no additional complaints, except as documented Allergic/Immunologic Allergic/Immunologic: Reports system reviewed and no additional complaints, except as documented Physical Exam General General appearance: alert and in no apparent distress Head Head exam: atraumatic and normocephalic Eye Eye exam: Present normal appearance Expanded ENT Exam External ear exam: Present normal external inspection Nose exam: Absent sinus tenderness Nasal speculum exam: Bilateral: normal (clear drainage) Mouth exam: Present normal external inspection Teeth exam: Present normal inspection Throat exam: Present normal inspection Neck Neck exam: Present normal inspection; Absent lymphadenopathy Chest Chest inspection: Present normal inspection and symmetric chest wall rise Respiratory Respiratory exam: Present other (course sounds throughout.) Cardiovascular Cardiovascular exam: Present regular rate, normal rhythm and normal heart sounds Abdominal Exam Abdominal exam: Present soft and normal bowel sounds Extremities Exam Extremities exam: Present normal inspection Back Exam Back exam: Present normal inspection Neurological Exam Neurological exam: Present alert and oriented X3 Psychiatric Psychiatric exam: Present normal affect and normal mood Skin Skin exam: Present warm, dry and intact Lymphatic Lymphatic Findings: no adenopathy Medical Decision Making Arthur Inquiry Pt receiving controlled substance: No Arthur was queried for this patient: No Vital Signs: 09/15/23 11:55 Temperature 97.7 F Temperature Source Oral Pulse Rate [Left Brachial] 92 H Respiratory Rate 18 Blood Pressure [Left Arm] 119/68 Blood Pressure Mean [Left Arm] 85 Blood Pressure Source [Left Arm] Automatic Cuff Blood Pressure Position [Left Arm] Sitting 02 Sat by Pulse Oximetry 99 Oxygen Delivery Method Room Air
[2023-09-15 13:11] VITALS: BP 119/68; PULSE 92; RESP 18; TEMP 36.5; O2SAT 99
== END 2023-09-15 13:13 | disposition home or self-care (01) ==
PROVIDERS: Emergency Provider Nurse Practitioner Family; PCP Family Medicine
DX: J20.9 Acute bronchitis, unspecified (principal)
CPT/HCPCS: 99212; 99214; G0463

== ENCOUNTER 2024-01-19 14:33 | Outpatient (CLI) | payer OTHER, SELFPAY ==
--- NOTE | 2024-01-19 14:39 | XR_ITS ---
FINAL REPORT CLINICAL HISTORY: RT SHOULDER PAIN COMPARISON: None FINDINGS: RIGHT SHOULDER 3 views demonstrate no acute fracture or dislocation. The joint spaces appear normal. The visualized bony structures are well aligned. No soft tissue abnormality is seen. IMPRESSION: No acute process. Reviewed, Interpreted and Dictated by Jay Owen III, MD Transcribed by Danni Arenas Authenticated and [facility]
== END 2024-01-19 23:59 | disposition home or self-care (01) ==
LOC: RAD 14:34
PROVIDERS: PCP Family Medicine; Visit Provider Nurse Practitioner
DX: M25.511 Pain in right shoulder (principal)
CPT/HCPCS: 73030

== ENCOUNTER 2024-06-04 10:51 | Outpatient (CLI) | payer OTHER, SELFPAY ==
--- NOTE | 2024-06-04 10:55 | MM_ITS ---
PROCEDURE INFORMATION: Exam: MG Bilateral Screening 3D Mammography Exam date and time: 06/04/2024 11:08 AM Age: 63 years old Clinical indication: Screening examination TECHNIQUE: Imaging protocol: Bilateral Screening tomosynthesis and 2D mammography including computer-aided detection (CAD) when performed. COMPARISON: 1. MG MM DIG SCREENING MAMM BI W/CAD 06/13/2023 10:27 AM 2. MG DMSB DIG MAMM-SCREEN LUZ 06/26/2013 10:55 AM FINDINGS: MAMMOGRAPHY: Breast composition: There are scattered areas of fibroglandular density. Mass: None. Architectural distortion: None. Calcifications: No suspicious calcifications. Asymmetric density: None. Skin thickening: None. Axillary adenopathy: None. IMPRESSION: No mammographic evidence of malignancy. Annual screening is recommended unless otherwise clinically indicated. ASSESSMENT: BI-RADS Category 1: Negative.
== END 2024-06-04 23:59 | disposition home or self-care (01) ==
LOC: RAD 10:52
PROVIDERS: PCP Family Medicine; Visit Provider Nurse Practitioner
DX: Z12.31 Encounter for screening mammogram for malignant neoplasm of breast (principal)
CPT/HCPCS: 77063; 77067

== ENCOUNTER 2024-09-09 10:45 | Day surgery (SDC) | payer OTHER, SELFPAY ==
[2024-06-28 13:52] VITALS: BMI 19.8
[2024-09-09] MEDS: LACTATED RINGERS 1000ML 1,000 ML 50 ML IV (11:10)
[2024-09-09 11:22] VITALS: BP 128/86; PULSE 54; RESP 18; TEMP 36.1; O2SAT 99
--- NOTE | 2024-09-09 11:55 | P.HP_ITS ---
History of Present Illness *Admission Date: 09/09/24 *History of present illness: Mrs. Barr is a 64-year-old female who is here for dyspepsia with epigastric abdominal pain, nausea and fullness with reflux. The examination is deemed medically necessary for diagnostic EGD. The patient has been seen, interviewed and examined prior to the procedure by both myself and the anesthesia provider. [facility] Disclaimer: The information contained in this section may have been updated after the patient was seen, as this information can be updated by other users. 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 current occupational exposures/hazards: No caffeine: Yes Have you lived/traveled outside US in past 30 days?: No Contact w/someone who lives/traveled outside US past 30 days?: No Exposure to someone with infectious disease in past 14 days?: No Do you have a fever (greater than 100.4 F or 38 C)?: No Have you tested positive for COVID-19?: No Exposed to someone with COVID-19 in past 14 days?: No Do you have a sore throat?: No Do you have a cough?: No Do you have any weakness?: No Do you have any diarrhea?: No Are you experiencing any unusual bleeding?: No Do you have any muscle aches/pain?: No Do you have any abdominal pain?: No Are you experiencing loss of taste or smell?: No Other Medical History Have you received the Flu Vaccine for this season: No Have you received the Pneumonia Vaccine: No Review of Systems Review of Systems Review of systems (narrative): Negative *Cardiovascular Comments: Negative *Gastrointestinal Comments: Negative *Genitourinary Comments: Negative *Musculoskeletal Comments: Negative *Neurologic Comments: Negative Meds Home Medications and Allergies Home Medications ?Medication ?Instructions ?Recorded ?Confirmed ?Type cholecalciferol (vitamin D3) 1,250 1,250 mcg PO WEEKLY 09/15/23 09/09/24 History mcg (50,000 unit) capsule escitalopram oxalate 10 mg tablet 10 mg PO DAILY 09/1409/09/24 History (Lexapro) fluticasone propionate 50 1 spray intranasal DAILY #16 grams 04/10/24 09/09/24 Rx mcg/actuation nasal spray,suspension (Allergy Relief (fluticasone)) New Prescriptions to Start Prescriptions: Allergies Allergy/AdvReac Type Severity Reaction Status Date / Time diphenhydramine Allergy Intermediate I-RASH Verified 09/09/24 11:20 (DIPHENHYDRAMINE) adhesive tape (ADHESIVE TAPE) Allergy Unknown SEIZURES Verified 09/09/24 11:20 Exam Data for Last 24 hours Vital signs and Labs for Last 24 Hours: Temp Pulse Resp BP Pulse Ox O2 Del Method 97 F L 54 L 18 128/86 99 Room Air 09/09/24 11:22 09/09/24 11:22 09/09/24 11:22 09/09/24 11:22 09/09/24 11:22 09/09/24 11:22 *Routine HEENT Exam Head: Present normocephalic Eye: Present EOMI and PERRL ENT: Present mucous membranes moist *Routine Neck Exam Neck: Present supple *Routine Respiratory Exam Respiratory: Present CTA bilaterally *Routine Cardiovascular Exam Cardiovascular: Present RRR *Routine Abdominal Exam Abdominal: Present soft and normoactive bowel sounds; Absent tenderness *Routine Rectal Exam Rectal:: deferred *Routine Genitalia Exam Genitalia:: deferred *Routine Extremities Exam Extremities: Absent cyanosis, clubbing or edema *Routine Skin Exam Skin: Present warm; Absent rash *Routine Neurological Exam Neurological: Present alert and oriented X3 Assessment and Plan *Assessment and plan (1) Nausea: Status: Acute Category: Medical Code(s): R11.0 - Nausea (2) Epigastric abdominal pain: Status: Acute Category: Medical Code(s): R10.13 - Epigastric pain (3) Acid reflux: Status: Acute Category: Medical Code(s): K21.9 - Gastro-esophageal reflux disease without esophagitis Plan A/P: 1. Epigastric abdominal pain with nausea and reflux is the preprocedural diagnosis. The patient will be anesthetized/sedated using MAC sedation. The patient has been seen and examined. Cardiac and lung assessment prior to the examination is stable. Proceed with planned diagnostic EGD.
--- NOTE | 2024-09-09 12:35 | EXP.ANES.CKL ---
[facility] Disclaimer: The information contained in this section may have been updated after the patient was seen, as this information can be updated by other users. 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 current occupational exposures/hazards: No caffeine: Yes Have you lived/traveled outside US in past 30 days?: No Contact w/someone who lives/traveled outside US past 30 days?: No Exposure to someone with infectious disease in past 14 days?: No Do you have a fever (greater than 100.4 F or 38 C)?: No Have you tested positive for COVID-19?: No Exposed to someone with COVID-19 in past 14 days?: No Do you have a sore throat?: No Do you have a cough?: No Do you have any weakness?: No Do you have any diarrhea?: No Are you experiencing any unusual bleeding?: No Do you have any muscle aches/pain?: No Do you have any abdominal pain?: No Are you experiencing loss of taste or smell?: No [facility] Anesthesia Checklist Patient Identification Patient Identification: Arm Band and Verbal (Name & ) Structural Data Admitted From: Home Planned Operative Procedure/s: EGD Verified Documents: Surgical Consent NPO Status Verified Time NPO: 00:00 Additional verifications Anesthesia Reactions: No Hx Blood Transfusions: No Blood Transfusion Reaction: No Airway Assessment Mallampati Score:: Class II C-Spine Mobility Assessed: Yes TMJ Mobility Assessed: Yes Dentition: Good Dentition Neurological Assessment Level of Consciousness: Awake, Alert and Appropriate Hx Seizures: No Numbness or tingling in extremities: No Anesthesia Plan Anesthesia Risk discussed: Yes Anesthesia Plan: Verified ASA Class: II Anesthesia Type: MAC
--- NOTE | 2024-09-09 13:13 | P.PCN_ITS ---
[facility] Procedure Note Date: 09/09/24 Time: 13:39 Procedure Note:: Upper Endoscopy Procedure Report: Esophagogastroduodenoscopy with cold biopsies and TTS balloon dilation Endoscopost: Compa Dickinson II, MD Referring Physician: Radha Wheeler M.D. Date of Procedure: September 09, 2024 Equipment: Olympus GIF-1100 standard upper endoscope Sedation: MAC sedation Indications: Mrs. Barr is a 64-year-old female who is here for diagnostic upper endoscopy secondary to epigastric abdominal pain for several months. She also has reflux, bloating, belching, nausea and some early satiety. She also has throat thickness and some swallowing difficulty. She does state that her last upper endoscopy was about 10 years ago. She reports regular bowel function. Procedure: Prior to the procedure, a history and physical exam was performed, and patient's medications and allergies were reviewed. The risks, benefits and alternatives of the sedation and procedure were discussed with the patient. All questions were answered and informed consent was obtained. The patient was brought to the procedure room. Patient identification and proposed procedure were verified by the physician and the nurse. The patient was placed in a left lateral decubitus position and the scope was passed under direct vision. Throughout the procedure, the patient's blood pressure, pulse, and oxygen saturations were monitored continuously. Bite clamps were utilized rather than a bite block. The upper GI endoscopy was accomplished without difficulty. The patient tolerated the procedure well. Findings: The scope was passed directly into the upper esophagus and advanced to the 3rd and 4th portion of the duodenum. A cold biopsy was taken for the disaccharidase assay. The post bulbar duodenum, ampulla and duodenal bulb were normal with normal mucosa and conniventes. The scope was withdrawn through a normal duodenal bulb and pylorus into the stomach. There was bile reflux with mild linear reactive gastropathy of the antrum. The body and fundus of the stomach were normal. Upon retroflexion there was a very small sliding 1 to 2 cm hiatal hernia. Cold biopsies were taken from the antrum. The scope was then withdrawn into the esophagus. There was no evidence of reflux esophagitis or Hernandez's. There were tertiary contractions and evidence of moderate esophageal dysmotility. The entire esophagus was dilated to 60 Jordanian/20 mm with a TTS hydrostatic balloon. There was no resistance. The remainder of the esophageal mucosa was normal. Impression: 1. Nonerosive GERD with moderate esophageal dysmotility and very small sliding 1 to 2 cm hiatal hernia 2. Bile reflux with mild linear reactive gastropathy of antrum Plan: I will follow-up the biopsies and disaccharidase assay. The patient does have functional dyspepsia and functional GERD. We will discuss treatment options.
[2024-09-09 13:41] VITALS: BP 97/66; PULSE 85; RESP 18; TEMP 36.2; O2SAT 98
[2024-09-09 13:51] VITALS: BP 93/60; PULSE 55; RESP 16; O2SAT 99
[2024-09-09 14:01] VITALS: BP 109/60; PULSE 73; RESP 16; O2SAT 97
[2024-09-09 14:11] VITALS: BP 117/51; PULSE 71; RESP 16; O2SAT 98
[2024-09-12 14:12] LABS: Interpretation Notes (.); Lactase 10.94 (>/= 14.0); Maltase 138.21 (>/= 110.0); Palatinase 8.71 (>/= 8.5); Reference Notes (.); Sucrase 24.72 (>/= 25.0)
== END 2024-09-09 14:14 | disposition home or self-care (01) ==
PROVIDERS: PCP Family Medicine; Visit Provider Internal Medicine Gastroenterology
PROC: 0DJ08ZZ Inspection of Upper Intestinal Tract, Via Natural or Artificial Opening Endoscopic (ICD-10-PCS; CPT 43239; principal; 2024-09-09 12:30)
DX: K29.50 Unspecified chronic gastritis without bleeding (principal); K21.9 Gastro-esophageal reflux disease without esophagitis; K31.9 Disease of stomach and duodenum, unspecified; J44.9 Chronic obstructive pulmonary disease, unspecified; I10 Essential (primary) hypertension; F17.210 Nicotine dependence, cigarettes, uncomplicated; Z79.899 Other long term (current) drug therapy
CPT/HCPCS: 43239; 43249; 82657; C1726; J2003; J2704; J7120

== ENCOUNTER 2024-09-17 18:56 | Emergency (ER) | payer OTHER, SELFPAY ==
--- OUTSIDE RECORDS SUMMARY | 2024-09-17 19:20 | XMS_ITS | Clinical Summary ---
Author Organization [facility] Address [address] [place] [address] Care Team Providers Care Signals Intelligence Superintendent Name Role Phone Everardo Wheeler MD Primary Care Provider [phone] Allergies Active Allergy Reactions Criticality Noted Date Comments Diphenhydramine Hives Medium 05/01/2022 Wound Dressing Adhesive Other - please document in the comment field Low 05/01/2022 Seizures silk tape Medications famotidine (Pepcid) 20 MG tablet Take 2 tablets (40 mg) by mouth every night. Active albuterol 108 (90 Base) MCG/ACT inhaler Inhale 2 puffs every 6 (six) hours if needed for wheezing. Active ibuprofen 400 MG tablet Take 1 tablet (400 mg total) by mouth every 6 (six) hours if needed for moderate pain. 50 tablet 3 Active Additional Information Patient not taking.Reported on 05/03/2023 oxyCODONE (Roxicodone) 5 MG immediate release tablet Take 1 tablet (5 mg total) by mouth every 6 (six) hours if needed for severe pain for up to 15 doses. 20 tablet 3 Active Additional Information Patient not taking.Reported on 05/03/2023 acetaminophen (Tylenol) 500 MG tablet Take 2 tablets (1,000 mg total) by mouth every 6 (six) hours if needed for pain. 100 tablet 3 Active Additional Information Patient not taking.Reported on 05/03/2023 methocarbamol (Robaxin) 750 MG tablet Take 1 tablet (750 mg total) by mouth every 6 (six) hours if needed for muscle spasms. 50 tablet 3 Active Additional Information Patient not taking.Reported on 05/03/2023 methenamine hippurate (Hiprex) 1 g tablet 3 Active desvenlafaxine (Pristiq) 50 MG 24 hr tablet 2 Active benzonatate (Tessalon) 100 MG capsule TAKE 1 CAPSULE BY MOUTH THREE TIMES DAILY NEEDED FOR COUGH Active gabapentin (Neurontin) 100 MG capsule Take 1 capsule (100 mg) by mouth 3 (three) times a day for 90 doses. 30 capsule 3 Active Active Problems Problem Noted Date Diagnosed Date Closed fracture of left distal radius 05/02/2022 Overview (05/02/2022): Added automatically from request for surgery [id number] Social History Tobacco Use Types Packs/Day Years Used Date Smoking Tobacco: Former Cigarettes Smokeless Tobacco: Never Tobacco Cessation:Counseling Given: Not Answered Comments:Quit smoking a few months ago Alcohol Use Standard Drinks/Week Comments Not Currently 0 (1 standard drink = 0.6 oz pur e alcohol) PHQ-2 Answer Date Recorded Patient Health Questionnaire-2 Score 0 12/06/2022 PHQ-9 Answer Date Recorded Patient Health Questionnaire-9 Score 9 05/19/2022 PHQ-2A Answer Date Recorded Patient Health Questionnaire-2 Score 0 12/06/2022 Comments No Sex and Gender Information Value Date Recorded Sex Assigned at Female 05/05/2022 6:52 AM EDT Legal Sex Female 6:08 PM EDT Gender Identity Female 05/05/2022 6:52 AM EDT Sexual Orientation Not on file Last Filed Vital Signs Vital Sign Reading Time Taken Comments Blood Pressure 121/78 05/03/2023 8:22 AM EDT Pulse 59 05/03/2023 8:22 AM EDT Temperature 36.6 C (97.8 F) 05/03/2023 8:22 AM EDT Respiratory Rate 16 05/06/2022 5:04 PM EDT Oxygen Saturation 99% 05/03/2023 8:22 AM EDT Inhaled Oxygen Concentration - - Weight 54.4 kg (120 lb) 05/03/2023 8:22 AM EDT Height 167.6 cm (5' 6 ) 05/03/2023 8:22 AM EDT Body Mass Index 19.37 05/03/2023 8:22 AM EDT Plan of Treatment Health Maintenance Due Date Last Done Comments [facility]-HIV Screening 1961 [facility]-Hepatitis C Screening 1961 [facility]-Infant/Child/Adol SDOH Screenings 1961 [facility]- SDOH Screenings 06/15/1979 [facility]-Adult SDOH Screenings 06/15/1979 [facility]-DTaP,Tdap,and Td Vaccine s (1 - Tdap) 05/02/1998 05/01/1998 CT Colonography 2006 Colonoscopy 2006 FIT-DNA 2006 FIT 2006 FOBT 2006 Sigmoidoscopy 2006 [facility]-Colorectal Cancer Screening 2006 [facility]-Breast Cancer Screening 06/15/2011 [facility]-Pneumococcal Vaccine: 50 + Years (1 of 1 - PCV) 06/15/2011 [id number] Vaccine (3 - season) 2023 04/10/2020, 03/20/2020 [facility]-Depression Screening 12/07/2023 023, 05/19/2022 [facility]-Influenza Vaccine (#1) 2024 11/17/2015 [facility]-RSV Vaccine: 60+ Years o r (1 - 1-dose 75+ series) 2036 [facility]-Zoster Vaccines Completed 11/30/2022, 09/09/2022 HPV Vaccines Aged Out No longer eligi ble based on patient's age to complete this topic [facility]-HIB Vaccines Aged Out No longer e ligible based on patient's age to complete this topic [facility]-Hepatitis A Vaccines Aged Out No longer eligible based on patient's age to complete this topic [facility]-IPV Vaccines Aged Out No longer e ligible based on patient's age to complete this topic [facility]-Rotavirus Vaccines Aged Out No lo nger eligible based on patient's age to complete this topic Medical Devices Implanted Type Area Swimming Pool Maintenance Supervisor Device Identifier Shelf Expiration Date Model / Serial / Lot Plate 2.4mm Va Col Dis Rad Nrw 6h 4h Lt - S. - [id number] Implanted:Qty: 1 on 05/05/2022 by Lana Murphy MD at [facility] Plate Left: [id number] 05/06/2023 [id number] / . / Screw 2.4mm Va Loc Stardrive 18mm - S. - [id number] Implanted:Qty: 3 on 05/05/2022 by Lana Murphy MD at [facility] Screw Left: [employer] [id number] 05/06/2023 [id number] / . / Screw 2.7mm Cortex T8 Star Selftap 14mm - S. - [id number] Implanted:Qty: 1 on 05/05/2022 by Lana Murphy MD at [facility] Screw Left: [employer] [id number] 05/06/2023 [id number] / . / Screw 2.4mm Va Loc Stardrive 20mm - S. - [id number] Implanted:Qty: 1 on 05/05/2022 by Lana Murphy MD at [facility] Screw Left: [employer] [id number] 05/06/2023 [id number] / . / Screw 2.7mm Cortex T8 Star Selftap 12mm - S. - [id number] Implanted:Qty: 1 on 05/05/2022 by Lana Murphy MD at [facility] Screw Left: [employer] [id number] 05/06/2023 [id number] / . / Screw 2.7mm Cortex T8 Star Selftap 10mm - S. - [id number] Implanted:Qty: 1 on 05/05/2022 by Lana Murphy MD at [facility] Screw Left: [employer] [id number] 05/06/2023 [id number] / . / Explanted Type Area Swimming Pool Maintenance Supervisor Device Identifier Shelf Expiration Date Model / Serial / Lot Screw 2.7mm Cortex T8 Star Selftap 18mm - S. - [id number] Explanted:Qty: 1 on 05/05/2022 by Lana Murphy MD at [facility] Screw Left: [id number] 05/06/2023 [id number] / . / Insurance [facility] [place] [id number] [employer] MEDICAID [facility] [place] [id number] [employer] MEDICAID [employer] MED[employer]ID MD ARIELA [id number] Care Teams Signals Intelligence Superintendent Relationship Specialty Start Date End Date Everardo Wheeler MD [address] [place] [address] #1 #1 ALVERTO Kim PCP - General 05/01/22
[2024-09-17 19:24] VITALS: BP 138/65; PULSE 84; RESP 16; TEMP 36.4; O2SAT 99; BMI 21.6
--- NOTE | 2024-09-17 19:31 | XR_ITS ---
PROCEDURE INFORMATION: Exam: XR Left Ankle Exam date and time: 09/17/2024 7:36 PM Age: 64 years old Clinical indication: Injury or trauma; Fall; Other: Pain TECHNIQUE: Imaging protocol: Radiologic exam of the left ankle. Views: 3 or more views. COMPARISON: CR XR ANKLE LT MIN 3V 09/17/2024 7:36 PM FINDINGS: Bones/joints: Anatomic alignment is maintained. No acute fracture. Suggestion of 3 mm osteochondral defect along the medial talar dome. Os peroneum. Soft tissues: Normal. IMPRESSION: 1. Suggestion of a 3 mm osteochondral defect along the medial talar dome. 2. No acute fracture.
--- NOTE | 2024-09-17 19:31 | XR_ITS ---
PROCEDURE INFORMATION: Exam: XR Left Foot Exam date and time: 09/17/2024 7:36 PM Age: 64 years old Clinical indication: Injury or trauma; Fall; Other: Pain TECHNIQUE: Imaging protocol: Radiologic exam of the left foot. Views: 3 or more views. COMPARISON: CR XR FOOT LT MIN 3V 09/17/2024 7:36 PM FINDINGS: Bones/joints: Anatomic alignment is maintained. No acute fracture. Synostosis of the DIP joint of the littlest toe. 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 Os peroneum. Soft tissues: Normal. IMPRESSION: No acute osseous abnormality.
--- NOTE | 2024-09-17 19:31 | XR_ITS ---
PROCEDURE INFORMATION: Exam: XR Left Tibia and Fibula Exam date and time: 09/17/2024 7:36 PM Age: 64 years old Clinical indication: Injury or trauma; Fall; Other: Pain TECHNIQUE: Imaging protocol: Radiologic exam of the left tibia and fibula. Views: 2 views. COMPARISON: CR XR ANKLE LT MIN 3V 09/17/2024 7:36 PM FINDINGS: Bones/joints: Anatomic alignment is maintained. No acute fracture. Soft tissues: Normal. IMPRESSION: No acute osseous abnormality.
--- NOTE | 2024-09-17 19:31 | XR_ITS ---
PROCEDURE INFORMATION: Exam: XR Left Knee Exam date and time: 09/17/2024 7:36 PM Age: 64 years old Clinical indication: Injury or trauma; Fall; Other: Pain TECHNIQUE: Imaging protocol: Radiologic exam of the left knee. Views: 3 views. COMPARISON: CR XR KNEE LT 3V 09/17/2024 7:36 PM FINDINGS: Bones/joints: Anatomic alignment is maintained. No acute fracture. No suprapatellar effusion. Soft tissues: Normal. IMPRESSION: No acute osseous abnormality.
[2024-09-17] MEDS: ORPHENADRINE CITRATE 60MG/2ML VIAL 60 MG IM (19:38)
[2024-09-17] MEDS: KETOROLAC 30MG/ML VIAL 30 MG IM (19:38)
--- NOTE | 2024-09-17 19:41 | ED_ITS ---
<Statement entered by Kaya López DO - 09/18/24 00:24> I was consulted by the TAYLOR, and we discussed the complexity of problems being addressed. I approve the treatment and management plan for this patient's care in the emergency department, thus performing a substantial portion of the medical decision making. Kaya López DO Discharge Plan Disposition Patient Disposition: Home, Self-Care Prescriptions Prescriptions: No Action fluticasone propionate [Allergy Relief (fluticasone)] 50 mcg/actuation spray,suspension 1 spray intranasal DAILY Qty: 16 0RF Rx Instructions: administer into each nostril buspirone 10 mg tablet 10 mg PO BID Qty: 60 12RF Rx Instructions: Please take 1 tablet p.o. nightly x 5 to 7 days and then 1 tablet p.o. twice daily thereafter escitalopram oxalate [Lexapro] 10 mg tablet 10 mg PO DAILY cholecalciferol (vitamin D3) 1,250 mcg (50,000 unit) capsule 1,250 mcg PO WEEKLY Referrals Follow up/Referrals: Braden Wheeler MD [Primary Care Provider, Medical] - See instructions Activity Restrictions/Add. Instructions Additional Instructions/Restrictions: Wear postop shoe as tolerated. May use ice or heat for comfort. Take ibuprofen and Tylenol for pain as needed. Call PCP if these are not sufficient for your pain control. Clinical Impressions Clinical Impression: Ankle sprain and strain, Foot sprain, Leg sprain Instructions Patient Instructions: Sprain, DI for Muscle Strain, DI for Foot Sprain Print Language Print Language: Pashto Discharge ED Provider: Kaya López General Adult HPI General Chief complaint: Extremity Injury, Lower Stated complaint: pulled something in L leg/2 broken toes Time Seen by Provider: 09/17/24 18:59 Mode of Arrival: Ambulatory Source of Information: Patient Description of Symptoms (Recalled from ER Triage Doc. by RN): pt presents to the ED d/t complaints of falling down a hill and her legs rolling underneath her. pt complains of left leg pain and left foot pain History of Present Illness HPI narrative: 64-year-old female presents to the ED today for complaints of a fall about an h our prior to arrival. She said her left leg went behind her. She has pain from her left knee down to her toes on the left side. She thinks she also broke her great toe and the second toe. She has some numbness present. Pulses are present. She did not hit her head. She has no other injuries. She says she cannot bear weight on the left leg at this time. Related Data Home Medications ?Medication ?Instructions ?Recorded ?Confirmed cholecalciferol (vitamin D3) 1,250 1,250 mcg PO WEEKLY 09/15/23 09/09/24 mcg (50,000 unit) capsule escitalopram oxalate 10 mg tablet 10 mg PO DAILY 09/1409/09/24 (Lexapro) Previous Rx's ?Medication ?Instructions ?Recorded fluticasone propionate 50 1 spray intranasal DAILY #16 grams 04/10/24 mcg/actuation nasal spray,suspension (Allergy Relief (fluticasone)) buspirone 10 mg tablet 10 mg PO BID #60 tabs Allergies Allergy/AdvReac Type Severity Reaction Status Date / Time diphenhydramine Allergy Intermediate I-RASH Verified 09/09/24 11:20 (DIPHENHYDRAMINE) adhesive tape (ADHESIVE TAPE) Allergy Unknown SEIZURES Verified 09/09/24 11:20 [facility] Disclaimer: The information contained in this section may have been updated after the patient was seen, as this information can be updated by other users. 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 occupational exposures/hazards: No caffeine: Yes Have you lived/traveled outside US in past 30 days?: No Contact w/someone who lives/traveled outside US past 30 days?: No Exposure to someone with infectious disease in past 14 days?: No Do you have a fever (greater than 100.4 F or 38 C)?: No Have you tested positive for COVID-19?: No Exposed to someone with COVID-19 in past 14 days?: No Do you have a sore throat?: No Do you have a cough?: No Do you have any weakness?: No Do you have any diarrhea?: No Are you experiencing any unusual bleeding?: No Do you have any muscle aches/pain?: No Do you have any abdominal pain?: No Are you experiencing loss of taste or smell?: No Other Medical History Have you received the Flu Vaccine for this season: No Have you received the Pneumonia Vaccine: No ROS Obtained: Yes Systems reviewed as appropriate & no additional complaints except as documented Constitutional Constitutional: Reports as per HPI Physical Exam General General appearance: alert and in distress Head Head exam: normocephalic Eye Eye exam: Present PERRL ENT ENT exam: Present mucous membranes moist Neck Neck exam: Present full ROM Respiratory Respiratory exam: Present normal lung sounds bilaterally Cardiovascular Cardiovascular exam: Present regular rate, normal rhythm, normal heart sounds, +S1 and +S2 Extremities Exam Extremities exam: Present tenderness (To left knee down to her left great toe and second toe.) and normal capillary refill Neurological Exam Neurological exam: Present alert and oriented X3 Skin Skin exam: Present warm and dry Medical Decision Making Medical Records Screening: Per USPSTF and CDC recommendations, given the prevalence of disease in our region, it is our hospital?s policy to screen for HIV and viral Hepatitis for all patients aged 18 and over and those with ongoing risk factors. Arthur Inquiry Pt receiving controlled substance: No Arthur was queried for this patient: No Vital Signs: 09/17/24 19:24 09/17/24 20:00 09/17/24 21:06 Temperature 97.6 F 97.8 F Temperature Source Oral Oral Pulse Rate 77 68 Pulse Rate [Left Radial] 84 Respiratory Rate 16 16 Blood Pressure 122/65 114/86 Blood Pressure [Right Radial Artery] 138/65 Blood Pressure Mean 88 Blood Pressure Mean [Right Radial Artery] 89 Blood Pressure Position Supine Blood Pressure Position [Right Radial Artery] Supine 02 Sat by Pulse Oximetry 99 100 Oxygen Delivery Method Room Air Room Air Orders (Tests/Meds): ED MEDICATIONS Discontinued Medications Generic Name Dose Route Start Last Admin Trade Name Freq PRN Reason Stop Dose Admin Ketorolac Tromethamine 30 mg 09/17/24 19:32 09/17/24 19:38 Ketorolac 30mg/Ml Vial IM 09/17/24 19:33 30 mg ONCE ONE Administration Orphenadrine Citrate 60 mg 09/17/24 19:32 09/17/24 19:38 Orphenadrine Citrate 60mg/2ml Vial IM 09/17/24 19:33 60 mg ONCE ONE Administration ORDERS Category Date Time Status Ankle XR - Left minimum 3 Views [XR ankle LT min 3V] Exams 09/17/24 19:31 Completed Stat Fibula/tibia XR left 2 views [XR tibia fibula LT 2V] Exams 09/17/24 19:31 Completed Stat Foot XR left minimum 3 views [XR foot LT min 3V] Stat Exams 09/17/24 19:31 Completed Knee XR left 3 views [XR knee LT 3V] Stat Exams 09/17/24 19:31 Completed Medical Decision Narrative: patient is a 64-year-old female presenting to the emergency department for evaluation of left leg pain and left toe pain after a fall 1 hour prior to arrival. Patient is hemodynamically stable and nontoxic-appearing upon arrival, afebrile. Differential diagnosis includes fracture versus muscle pain strain. Workup will be conducted with hematologic labs, specific imaging. Initial inv entions include analgesics. Imaging informally interpreted by me and remarkable for nothing acute. Formal imaging read remarkable for for nothing acute. Upon repeat evaluation patient's pain is improved. Patient safe for discharge home with postop shoe. Critical Care Critical Care Time Critical Care Time: No
[2024-09-17 20:00] VITALS: BP 122/65; PULSE 77; O2SAT 100
[2024-09-17 21:06] VITALS: BP 114/86; PULSE 68; RESP 16; TEMP 36.6; O2SAT 98
== END 2024-09-17 21:07 | disposition home or self-care (01) ==
PROVIDERS: Emergency Provider Student in an Organized Health Care Education/Training Program; PCP Family Medicine
DX: S93.402A Sprain of unspecified ligament of left ankle, initial encounter (principal); S93.602A Unspecified sprain of left foot, initial encounter; M79.605 Pain in left leg; F17.210 Nicotine dependence, cigarettes, uncomplicated; W17.81XA Fall down embankment (hill), initial encounter
CPT/HCPCS: 73562; 73590; 73610; 73630; 96374; 96375; 99284; J1885; J2360

== ENCOUNTER 2024-09-30 14:36 | Outpatient (CLI) | payer OTHER, SELFPAY ==
--- OUTSIDE RECORDS SUMMARY | 2024-10-02 10:19 | XMS_ITS | Clinical Summary ---
Author Organization [facility] Address [address] [place] [address] Care Team Providers Care Rotor Coil Taper Name Role Phone Everardo Wheeler MD Primary Care Provider Allergies Active Allergy Reactions Criticality Noted Date [...] (05/02/2022): Added automatically from request for surgery [id number] Social History Tobacco Use Types Packs/Day Years [...] Years (1 of 1 - PCV) 06/15/2011 [id number] Vaccine (3 - season) 2023 04/10/2020, 03/20/2020 [...] this topic Medical Devices Implanted Type Area Newspaper Or Periodical Editor Device Identifier Shelf Expiration Date Model / Serial / Lot Plate 2.4mm Va Col Dis Rad Nrw 6h 4h Lt - S. - [id number] Implanted:Qty: 1 on 05/05/2022 by Lana Murphy MD at [facility] Plate Left: Wrist [id number] 05/06/2023 02.111.541 / . / Screw 2.4mm Va Loc Stardrive 18mm - S. - [id number] Implanted:Qty: 3 on 05/05/2022 by Lana Murphy MD at [facility] Screw Left: [employer]rist [employer] [id number] 05/06/2023 02.210.118 / . / Screw 2.7mm Cortex T8 Star Selftap 14mm - S. - [id number] Implanted:Qty: 1 on 05/05/2022 by Lana Murphy MD at [facility] Screw Left: [employer] [id number] 05/06/2023 202.874 / . / Screw 2.4mm Va Loc Stardrive 20mm - S. - [id number] Implanted:Qty: 1 on 05/05/2022 by Lana Murphy MD at [facility] Screw Left: [employer] [id number] 05/06/2023 02.210.120 / . / Screw 2.7mm Cortex T8 Star Selftap 12mm - S. - [id number] Implanted:Qty: 1 on 05/05/2022 by Lana Murphy MD at [facility] Screw Left: [employer] [id number] 05/06/2023 202.872 / . / Screw 2.7mm Cortex T8 Star Selftap 10mm - S. - [id number] Implanted:Qty: 1 on 05/05/2022 by Lana Murphy MD at [facility] Screw Left: [employer] [id number] 05/06/2023 202.870 / . / Explanted Type Area Newspaper Or Periodical Editor Device Identifier Shelf Expiration Date Model / Serial / Lot Screw 2.7mm Cortex T8 Star Selftap 18mm - S. - [id number] Explanted:Qty: 1 on 05/05/2022 by Lana Murphy MD at [facility] Screw Left: [employer] [id number] 05/06/2023 202.878 / . / Insurance [facility] [place] Sort[place] [id number] [employer] MEDICAID [facility] [place] Sort[place] [id number] [employer] MEDICAID [employer] MED[employer] MD ARIELA [id number] [address] Care Teams Rotor Coil Taper Relationship Specialty Start Date End Date Everardo Wheeler MD [address] [place] [address] #1 #1 ALVERTO Kim PCP - General 05/01/22
== END 2024-09-30 23:59 | disposition home or self-care (01) ==
LOC: LAB.DROPOF 10-02 09:59
PROVIDERS: PCP Urology; Visit Provider Urology
DX: N95.2 Postmenopausal atrophic vaginitis (principal); N39.0 Urinary tract infection, site not specified; N39.3 Stress incontinence (female) (male); N32.81 Overactive bladder
CPT/HCPCS: 87086; 87491; 87529; 87591; 87661; 87798; 87801

== ENCOUNTER 2024-10-09 09:38 | Outpatient (CLI) | payer OTHER, SELFPAY ==
--- NOTE | 2024-10-09 09:38 | XR_ITS ---
FINAL REPORT CLINICAL HISTORY: overactive bladder COMPARISON: None FINDINGS: A single supine view the abdomen was obtained. The pelvis is not included on this single image. The bowel gas pattern is nonspecific but nonobstructive. There are no pathologic calcifications. Osseous structures are within normal limits. IMPRESSION: Nonspecific but nonobstructive bowel gas pattern. The pelvis is not included on this single image. Reviewed, Interpreted and Dictated by Barbra Mendoza MD Transcribed by Jennifer Tripp Authenticated and [facility]
--- OUTSIDE RECORDS SUMMARY | 2024-10-09 09:46 | XMS_ITS | Clinical Summary ---
Author Organization [facility] Address [address] [place] [address] Care Team Providers Care Electrical Prospecting Observer Name Role Phone Everardo Wheeler MD Primary Care Provider [phone] Allergies Active Allergy Reactions Criticality Noted Date [...] (05/02/2022): Added automatically from request for surgery [id number] Social History Tobacco Use Types Packs/Day Years [...] Years (1 of 1 - PCV) 06/15/2011 [id number] Vaccine (3 - season) 2023 04/10/2020, 03/20/2020 [...] this topic Medical Devices Implanted Type Area Bleach Machine Operator Device Identifier Shelf Expiration Date Model / Serial / Lot Plate 2.4mm Va Col Dis Rad Nrw 6h 4h Lt - S. - [id number] Implanted:Qty: 1 on 05/05/2022 by Lana Murphy MD at [facility] Plate Left: W[employer] [id number] 05/06/2023 02.111.541 / . / Screw 2.4mm Va Loc Stardrive 18mm - S. - [id number] Implanted:Qty: 3 on 05/05/2022 by Lana Murphy MD at [facility] Screw Left: [employer] USA-[id number] 05/06/2023 02.210.118 / . / Screw 2.7mm Cortex T8 Star Selftap 14mm - S. - [id number] Implanted:Qty: 1 on 05/05/2022 by Lana Murphy MD at [facility] Screw Left: [employer] [id number] 05/06/2023 202.874 / . / Screw 2.4mm Va Loc Stardrive 20mm - S. - [id number] Implanted:Qty: 1 on 05/05/2022 by Lana Murphy MD at [facility] Screw Left: [employer] [id number] 05/06/2023 02.210.120 / . / Screw 2.7mm Cortex T8 Star Selftap 12mm - S. - [id number] Implanted:Qty: 1 on 05/05/2022 by Lana Murphy MD at [facility] Screw Left: [employer]-[id number] 05/06/2023 202.872 / . / Screw 2.7mm Cortex T8 Star Selftap 10mm - S. - [id number] Implanted:Qty: 1 on 05/05/2022 by Lana Murhpy MD at [facility] Screw Left: [employer] [id number] 05/06/2023 202.870 / . / Explanted Type Area Bleach Machine Operator Device Identifier Shelf Expiration Date Model / Serial / Lot Screw 2.7mm Cortex T8 Star Selftap 18mm - S. - [id number] Explanted:Qty: 1 on 05/05/2022 by Lana Murphy MD at [facility] Screw Left: [employer] [place]-[id number] 05/06/2023 202.878 / . / Insurance [facility] [place] Sort[place] [id number] [employer] MEDICAID [facility] [place] [id number] [employer] MEDICAID [employer] MEDICAID MD AIRELA [id number] 137 [address] Sorto Care Teams Electrical Prospecting Observer Relationship Specialty Start Date End Date Everardo Wheeler MD [address] [place] [address] #1 #1 ALVERTO Kim PCP - General 05/01/22
--- NOTE | 2024-10-09 10:00 | US_ITS ---
FINAL REPORT TECHNIQUE: Sonographic images of the kidneys and retroperitoneum were obtained in the longitudinal and transverse planes. CLINICAL HISTORY: .frequent bacterial utis FINDINGS: The right kidney measures 10.2 cm in slcq-[id number]-[id number] length. No hydronephrosis. Several right renal cysts including a parapelvic cyst. No stones. Cortical echogenicity and thickness are normal. The left kidney measures 9.6 cm in jhxl-cd-fvze length. No hydronephrosis, mass, or stone. Cortical echogenicity and thickness are normal. Limited evaluation of the spleen and liver demonstrate no acute abnormality. IMPRESSION: Right renal cyst. Reviewed, Interpreted and Dictated by Barbra Mendoza MD Transcribed by Danni Arenas Authenticated and . [facility]
--- NOTE | 2024-10-09 10:30 | US_ITS ---
FINAL REPORT CLINICAL HISTORY: overactice bladder FINDINGS: ULTRASOUND BLADDER WITH POST VOID RESIDUAL Bladder volumes were estimated based on 3 dimensional measurements, pre- and postvoid. Prevoid bladder volume: 450 mL. The urinary bladder is well-distended with no evidence of wall thickening. Postvoid bladder volume: 20 mls Bilateral ureteral jets are visualized. IMPRESSION: Estimated bladder volumes as above with small postvoid residual. No urinary bladder filling defect. Reviewed, Interpreted and Dictated by Barbra Mendoza MD Transcribed by Danni Arenas Authenticated and [facility]
== END 2024-10-09 23:59 | disposition home or self-care (01) ==
LOC: RAD 09:38
PROVIDERS: PCP Family Medicine; Visit Provider Urology
DX: N39.0 Urinary tract infection, site not specified (principal); N39.3 Stress incontinence (female) (male); N32.81 Overactive bladder; N28.1 Cyst of kidney, acquired
CPT/HCPCS: 74018; 76770; 76857

== ENCOUNTER → 2024-11-01 07:42 | Day surgery (SDC) | payer OTHER, SELFPAY ==
[2024-10-25 13:17] VITALS: BMI 20.1
[2024-11-01 07:59] VITALS: BP 148/66; PULSE 84; RESP 16; TEMP 36.5; O2SAT 98
--- NOTE | 2024-11-01 08:15 | P.PCN_ITS ---
[facility] Procedure Note Date: 11/01/24 Time: 08:16 Procedure Note:: Chart review: Patient is here for cystoscopy. She has refractory overactive bladder and some associated stress urinary incontinence. She has been on Estrace and Ditropan. She has also been on Myrbetriq. She still has daytime urinary urgency and frequency. She may be a patient to consider for Botox. We did somewhat discuss InterStim as well if she remains refractory to oral medications. She has significant pelvic floor relaxation which is the reason for the stress incontinence. Pre-op diagnosis: Refractory overactive bladder/BLAZE Postop diagnosis: Refractory overactive bladder/BLAZE/atrophic vaginitis/significant urethritis. Operative Note: The patient was brought to the cystoscopy suite. She was prepped and draped in the standard fashion. Xylocaine was placed in the urethra. The patient was catheterized and it was somewhat uncomfortable for a urinalysis and a urine culture and sensitivity. Patient then underwent flexible cystoscopy.. Patient then underwent flexible cystoscopy. She has a noted pelvic floor relaxation that would require surgical intervention. The patient has significant urethral-itis contributing to the pain with catheterization the bladder itself is Salkum pink in color throughout without evidence of bladder stone tumor hemorrhage or infection. The ureteral orifice is normal bilaterally and there is clear a flux of urine. The cystoscope was removed.
[2024-11-01] MEDS: LIDOCAINE 2% UROJET 10ML 10 ML (08:21)
[2024-11-01] MEDS: WATER FOR IRRIGATION,STERILE 1,000 ML 5 ML IR (08:22)
[2024-11-01 08:26] VITALS: BP 146/81; PULSE 73; RESP 18; TEMP 36.1; O2SAT 99
[2024-11-01 10:59] LABS: Microscopic,Cath URINE MICROSCOPIC (MICROSCOPIC)
[2024-11-01 11:49] LABS: Appearance,Urine/Cath CLEAR (Clear); Bilirubin,Cath Negative (Negative); Blood, Urine/Cath 1+ (Negative); Color,Urine/Cath YELLOW (Yellow); Glucose,Urine/Cath (UA) Negative (Negative); Ketones,Urine/Cath Negative (Negative); Leukocyte Esterase,Cath Negative (Negative); Nitrate,Cath Negative (Negative); PH,Urine/Cath 6.5 (5.0-8.5); Protein,Urine/Cath Negative (Negative); Specific Gravity, Urine/Cath >= 1.030 (1.005-1.030); Urobilinogen,Cath 0.2 EU/dl (0.2)
== END | disposition home or self-care (01) ==
PROVIDERS: PCP Family Medicine; Visit Provider Urology
PROC: 0TJB8ZZ Inspection of Bladder, Via Natural or Artificial Opening Endoscopic (ICD-10-PCS; CPT 52000; principal; 2024-11-01 08:45)
DX: N34.2 Other urethritis (principal); N81.89 Other female genital prolapse; N32.81 Overactive bladder; N95.2 Postmenopausal atrophic vaginitis; N39.3 Stress incontinence (female) (male); F17.210 Nicotine dependence, cigarettes, uncomplicated; Z90.49 Acquired absence of other specified parts of digestive tract
CPT/HCPCS: 52000; 81001; 87086